=== PATIENT | male | born 1960 | race Caucasian/White ===

== ENCOUNTER → 2016-04-25 | Outpatient (CLI) | payer MEDICARE ==
[~2016-04-25] VITALS: Ht 172.7 cm; Wt 90.7 kg
[~2016-04-25] MED LIST: AMIO20TA PO; AMLO5TAB2 PO; ATEN50TA2 PO; AVEL1TAB PO; AZIT500T2 PO; CARV25TA PO; CYCL10TA PO; FERR325T3 PO; GABA600T PO; HYDR12.55 PO; LANO250T12 PO; LIDOCAINE 2% INJ 100 MG/5 ML SDV (FOR ANES.) As Ordered ONE; NICO21DI5 TD; NORT50CA PO; NS 1,000 ML IV SCH; PRIL20TA2 PO; PRIN5TAB PO; PROPOFOL 200 MG/20 ML VIAL As Ordered ONE; PROTPAK PO; XARE10TA PO; XARE20TA PO
--- NOTE | 2016-04-25 12:22 | ROOR ---
Patient Name: Edi Berg Procedure Date: 04/25/2016 11:54 AM Date of : 1960 Age: 56 Room: M OPP Gender: Male Note Status: Finalized Procedure: Colonoscopy Indications: High risk colon cancer surveillance: Personal history of colonic polyps, High risk colon cancer surveillance: Personal history of adenoma (10 mm or greater in size), High risk colon cancer surveillance: Personal history of adenoma with high grade dysplasia, Last colonoscopy: February 2015 Providers: Nathanael TROY MD Referring MD: JASON Li Requesting Provider: Medicines: Monitored Anesthesia Care Complications: No immediate complications. Procedure: Pre-Anesthesia Assessment: - The heart rate, respiratory rate, oxygen saturations, blood pressure, adequacy of pulmonary ventilation, and response to care were monitored throughout the procedure. The Colonoscope was introduced through the anus and advanced to the cecum, identified by appendiceal orifice and ileocecal valve. The colonoscopy was performed without difficulty. The patient tolerated the procedure well. The quality of the bowel preparation was good. Findings: The perianal and digital rectal examinations were normal. (Exam: Complete, Prep: Good or Excellent.) Two sessile polyps were found in the sigmoid colon. The polyps were small in size. These polyps were removed with a cold snare. Resection and retrieval were complete. The exam was otherwise without abnormality on direct and retroflexion views. Impression: - (Exam: Complete, Prep: Good or Excellent.) - Two small polyps in the sigmoid colon, removed with a cold snare. Resected and retrieved. - The examination was otherwise normal on direct and retroflexion views. Recommendation: - Repeat colonoscopy in 3 years for surveillance. Nathanael Troy MD Nathanael TROY MD 04/25/2016 12:21:28 PM This report has been signed electronically. Number of Addenda: 0 Note Initiated On: 04/25/2016 11:54 AM Estimated Blood Loss: Estimated blood loss: none.
[2016-04-25 12:45] VITALS: BP 187/122
== END ==
LOC: M OPP 10:33
PROVIDERS: ATTEND Internal Medicine Gastroenterology
DX: Z09 Encounter for follow-up examination after completed treatment for conditions other than malignant neoplasm (principal); Z86.010 Personal history of colon polyps; D12.5 Benign neoplasm of sigmoid colon; I10 Essential (primary) hypertension; I48.91 Unspecified atrial fibrillation; Z72.0 Tobacco use; Z86.69 Personal history of other diseases of the nervous system and sense organs; Z79.899 Other long term (current) drug therapy; Z79.02 Long term (current) use of antithrombotics/antiplatelets; Z88.8 Allergy status to other drugs, medicaments and biological substances

== ENCOUNTER 2017-11-19 06:08 | Day surgery (SDC) | payer MEDICARE ==
[~2017-11-19 06:08] MED LIST changes: -AMIO20TA PO; -AMLO5TAB2 PO; -ATEN50TA2 PO; -AVEL1TAB PO; -AZIT500T2 PO; -CARV25TA PO; -CYCL10TA PO; -FERR325T3 PO; -GABA600T PO; -HYDR12.55 PO; -LANO250T12 PO; -LIDOCAINE 2% INJ 100 MG/5 ML SDV (FOR ANES.) As Ordered ONE; +LR 1,000 ML IV; -NICO21DI5 TD; -NORT50CA PO; -NS 1,000 ML IV SCH; -PRIL20TA2 PO; -PRIN5TAB PO; -PROPOFOL 200 MG/20 ML VIAL As Ordered ONE; -PROTPAK PO; -XARE10TA PO; -XARE20TA PO
[2017-11-19] MEDS ORDERED: PROPOFOL 200 MG/20 ML VIAL As Ordered (09:01)
[2017-11-19] MEDS ORDERED: LIDOCAINE 2% INJ 100 MG/5 ML SDV (FOR ANES.) As Ordered (09:01)
== END 2017-11-19 08:38 | disposition home or self-care (01) ==
LOC: M SDC 06:08
DX: I48.91 Unspecified atrial fibrillation (principal); I10 Essential (primary) hypertension; E78.5 Hyperlipidemia, unspecified; Z79.899 Other long term (current) drug therapy; Z79.02 Long term (current) use of antithrombotics/antiplatelets; F17.210 Nicotine dependence, cigarettes, uncomplicated; F12.10 Cannabis abuse, uncomplicated
CPT/HCPCS: 92960

== ENCOUNTER 2018-07-21 10:11 | Inpatient (IN) | payer MEDICARE ==
[~2018-07-21] VITALS: Ht 172.7 cm; Wt 89.5 kg
[2018-07-21] MEDS: CHLORTHALIDONE 12.5MG PER 1/2 TABLET PO SCH (09:00)
[~2018-07-21 10:11] MED LIST changes: +AMIO200T PO; +AMIO200T22 PO; +AMLO5TAB6 PO; +ATEN50TA2 PO; +AVEL1TAB3 PO; +AZIT500T2 PO; +CARV25TA PO; +CIAL5TAB PO; +COLA100C5 PO; +CYCL10TA PO; +FERR325T3 PO; +GABA600T4 PO; +HYDR12.55 PO; +HYDR12CA PO; +LANO250T15 PO; -LR 1,000 ML IV; +NICO21DI6 TD; +NORT50CA PO; +PRIL20TA2 PO; +PRIN5TAB PO; +PROTPAK PO; +XARE10TA PO; +XARE20TA PO
[2018-07-21] MEDS ORDERED: LOSA25TA14 PO (10:27)
[2018-07-21] MEDS ORDERED: GABA-845 PO (10:27)
--- NOTE | 2018-07-21 11:16 | REP ---
Portable chest, 10:52 a.m., single frontal view: Comparison is 08/02/2013. The lung melendez are clear. The cardiac size is normal. The jett, mediastinum, and skeletal structures are unremarkable. There is a loop recorder projected over the left hemithorax as an interval change. Impression: Negative portable chest. No interval change except for the loop recorder. Electronically Signed by Carter Espinosa MD 07/21/2018 11:07 A
--- NOTE | 2018-07-21 11:22 | REP ---
CT Head without contrast HISTORY: Infarction COMPARISON: None Areas of decreased attenuation are present in the periventricular white matter. This represents small-vessel ischemic disease. There is no intraparenchymal hemorrhage, acute infarct, mass or midline shift. The ventricular system and cortical sulci are dilated consistent with mild volume loss. There is no extra cerebral collection. There is no fracture. The visualized sinuses are clear. IMPRESSION: 1. Small vessel ischemic disease. 2. Mild volume loss. Electronically Signed by Herb Davalos MD 07/21/2018 11:13 A
[2018-07-21 11:26] LABS: BASO # 0.1 10^3/uL (0.0-0.2); BASO % 0.9 % (0.0-1.0); EOS # 0.1 10^3/uL (0.0-0.50); EOS % 1.3 % (0.0-3.0); HEMATOCRIT 49.5 % (42.0-52.0); HEMOGLOBIN 17.1 g/dl (13.5-17.5); LYMPH # 2.4 10^3/uL (1.5-4.5); LYMPH % 30.6 % (24.0-44.0); MEAN CORPUSCULAR HEMOGLOBIN 33.9 pg (27.0-33.0); MEAN CORPUSCULAR HGB CONC 34.5 g/dl (32.0-36.5); MONO # 0.9 10^3/uL (0.0-0.8); MONO % 10.7 % (0.0-5.0); NEUTROPHILS # 4.5 10^3/uL (1.8-7.7); PLATELET COUNT, AUTOMATED 247 10^3/uL (150-450); RED BLOOD COUNT 5.05 10^6/uL (4.30-6.10)
[2018-07-21 11:38] LABS: INR 2.09; PROTHROMBIN TIME 23.9 SECONDS (12.1-14.4)
[2018-07-21 11:39] LABS: PARTIAL THROMBOPLASTIN TIME 54.3 SECONDS (25.4-37.6)
[2018-07-21] MEDS ORDERED: LABETALOL HCL 100 MG/20 ML VIAL IV STA (11:47)
[2018-07-21 11:54] LABS: BLOOD UREA NITROGEN 19 MG/DL (7-18); CARBON DIOXIDE LEVEL 28 MEQ/L (21-32); CHLORIDE LEVEL 104 MEQ/L (98-107); CK-MB VALUE MASS < 1.0 NG/ML (<3.6); CPK CREATINE PHOSPHOKINASE 61 U/L (39-308); CREATININE FOR GFR 1.08 MG/DL (0.70-1.30); GLOMERULAR FILTRATION RATE > 60.0 (>56); GLUCOSE, FASTING 94 MG/DL (70-100); MB/CK RELATIVE INDEX 1.64 (< OR =4); POTASSIUM SERUM 4.6 MEQ/L (3.5-5.1); SODIUM LEVEL 138 MEQ/L (136-145); TROPONIN I < 0.02 NG/ML (< 0.10)
[2018-07-21] MEDS: **hydrALAZINE HCL** 25 MG TAB PO SCH ×5 (12:00→23:37)
[2018-07-21] MEDS ORDERED: GABA800T4 PO ×2 (12:25→12:31)
[2018-07-21] MEDS: amLODIPine 10 MG TAB PO ONE ×2 (12:30→17:54)
[2018-07-21] MEDS ORDERED: XARE20TA PO (12:31)
[2018-07-21] MEDS ORDERED: OMEP40CA2 PO (12:31)
[2018-07-21] MEDS ORDERED: TYLETAB14 PO (12:42)
[2018-07-21] MEDS ORDERED: CYCLOBENZAPRINE 10 MG TAB PO PRN (13:45)
--- NOTE | 2018-07-21 15:34 | REP ---
MRA BRAIN WITHOUT CONTRAST: HISTORY: Infarction. 3D [id number] MR angiography was performed at the level of the [place]. There is no aneurysm, arteriovenous malformation, or atherosclerotic lesion. Major intracranial vessels are patent. The vertebral arteries are equal in size. IMPRESSION: Normal MRA brain. Electronically Signed by Herb Davalos MD 07/21/2018 03:43 P
[2018-07-21 15:35] VITALS: BP 182/112
--- NOTE | 2018-07-21 15:41 | REP ---
MR BRAIN WITHOUT CONTRAST: HISTORY: Infarction. COMPARISON: CT 07/21/2018. Areas of increased signal intensity on T2-weighted images are present in the periventricular and subcortical white matter. This represents small vessel ischemic disease. There is no intraparenchymal hemorrhage, infarct, mass, or midline shift. The ventricular system and cortical sulci are dilated consistent with mild volume loss. There is on extracerebral collection. The sinuses are clear. IMPRESSION: 1. Small vessel ischemic disease. 2. Mild volume loss. Electronically Signed by Herb Davalos MD 07/21/2018 03:43 P
[2018-07-21] MEDS ORDERED: SLF 3 ML SYR IV PRN (15:45)
[2018-07-21] MEDS ORDERED: LOSARTAN 25 MG TAB PO ONE (16:00)
--- NOTE | 2018-07-21 16:05 | HPEPDOC ---
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 Pt was seen at [facility] neurology on Friday by Susana Pressley when he was c/o b/l feet numbness. "I usually jump up when she strokes my feet b ecause of really bad pain, but I barely felt her examine my feet. It was very numb." He also c/o upper back pain by the shoulder blades with b/l hand numbness, some "shakiness," and difficulty handling his utensils when he eats since Friday. No changes in gait, or falls at home. no sob, chest heaviness, or WADSW[place]TH. no fever, chills, URI, diarrhea, or sick contacts. In the ER, motor function b/l UE and LE wnl 5/5, gait was intact. MRI brain and cervical spine pending result. REVIEW OF SYSTEMS: 12 point systems review negative aside from positive findings on HPI PAST MEDICAL HISTORY: 1. Paroxysmal atrial fibrillation. 2. Hypertension. 3. Acid reflux. 4. Guillain-Elizabeth syndrome. 5. Sigmoid colon, polyps, polypectomy with Adenomatous polyp/tubular adenoma, hyperplastic polyp 6. GI bleed PAST SURGICAL HISTORY: 1. Status post cholecystectomy. 2. Tracheostomy. 3. Colonoscopy. 4. Polypectomy. SOCIAL HISTORY: Smokes cigarettes, 1 pack a day for many years, which is o ngoing, but denies alcohol abuse, denies illicit drug abuse. He is a full code. FAMILY HISTORY: Mother has history of breast cancer and also heart problems. ALLERGIES: LISINOPRIL. MEDICATIONS: pls see below PHYSICAL EXAMINATION: VITALS:pls see below GENERAL: Awake, alert and oriented times three. Face is symmetric. no facial drooping. Speech is fluent. He is not in acute distress. anicteric no jaundice HEENT: Atraumatic. Pupils equal, round, and reactive to light and accomodation. Ears, nose and throat normal. LUNGS: Clear. No crackles. No wheezing. HEART: S1, S2, regular. No murmur. ABDOMEN: Soft, bowel sounds positive, nontender. LOWER EXTREMITIES: He does not have edema in his bilateral lower extremities. NEUROLOGIC: decreased sensation in b/l arms, hands. motor 5/5/ x 4 extremities. no dysmetria on finger to nose testing. SKIN: No rash. PSYCHOLOGICAL: No acute psychosis. 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 Pt was seen at [facility] neurology on Friday by Susana Pressley when he was c/o b/l feet numbness. "I usually jump up when she strokes my feet because of really bad pain, but I barely felt her examine my feet. It was very numb." He also c/o upper back pain by the shoulder blades with b/l hand numbness, some "shakiness," and difficulty handling his utensils when he eats since Friday. No changes in gait, or falls at home. no sob, chest heaviness, or WADSW[place]TH. no fever, chills, URI, diarrhea, or sick contacts. In the ER, motor function b/l UE and LE wnl 5/5, gait was intact. MRI brain and cervical spine pending result. Pt was found to have sbp >200, dbp>100mmHg without c/o changes in vision or headache. Bilateral Hand numbness in the setting of chronic peripheral neuropathy from known history of guillaine barre in 1997 s/p trach. MRI brain and cervical spine are pending official report. No images available for review per Dr. Davalos. continue with PCU telemetry monitoring, and neurochecks. if negative MRI brain and cspine, lumbar puncture in am to rule out recurrent guillaine barre. Neurology consulted, Dr. clemons. Chronic bilateral feet pain now with numbness/ chronic peripheral neuropathy from known history of guillaine barre in 1997 s/p trach.MRI brain and cervical spine are pending official report. No images available for review per Dr. Davalos. continue with PCU telemetry monitoring, and neurochecks. if negative MRI brain and cspine, lumbar puncture in am to rule out recurrent guillaine barre. Neurology consulted, Dr. clemons. history of guillaine barre in 1997 s/p trach.MRI brain and cervical spine are pending official report. continue with PCU telemetry monitoring, and neurochecks. if negative MRI brain and cspine, lumbar puncture in am to rule out recurrent guillaine barre. Neurology consulted, Dr. clemons. Hypertensive urgency patient and patient's both say that he is compliant with his meds, and his lower back pain is chronic. pt is resumed on his home meds: losartan, coreg. he did receive labetalol in ER. CT head negative for acute ich or cva. chrnonic small vessel ischemic disease. on hydralazine q4hrs with holding parameters. Atrial fibrillation on chronic anticoagulation awaiting MRI brain report.currently rate controlled. on telemetry and resumed on home dose of amiodarone and coreg. pt has had multiple dc ardioversionsx3, and ablation per . 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 Acid reflux. continue on PPI History of GI bleed - Sigmoid colon, polyps, polypectomy with Adenomatous polyp/tubular adenoma, hyperplastic polyp -no acute issues Diet: CYNDY diet DVT prophylaxis: on chronic ac. Vital Signs Vital Signs Date Time Temp Pulse Resp B/P (MAP) Pulse Ox O2 Delivery O2 Flow Rate FiO2 07/21/18 13:15 69 154/107 (123) 94 07/21/18 11:07 Room Air 07/21/18 10:12 97.9 16 Laboratory Data Labs 24H Laboratory Tests 2 07/21/18 11:01: Immature Granulocyte % (Auto) 0.5, White Blood Count 8.0, Red Blood Count 5.05, Hemoglobin 17.1, Hematocrit 49.5, Mean Corpuscular Volume 98.0H, Mean Corpuscula r Hemoglobin 33.9H, Mean Corpuscular Hemoglobin Concent 34.5, Red Cell Distribution Width 13.7, Platelet Count 247, Neutrophils (%) (Auto) 56.0, Lymphocytes (%) (Auto) 30.6, Monocytes (%) (Auto) 10.7H, Eosinophils (%) (Auto) 1.3, Basophils (%) (Auto) 0.9, Neutrophils # (Auto) 4.5, Lymphocytes # (Auto) 2.4, Monocytes # (Auto) 0.9H, Eosinophils # (Auto) 0.1, Basophils # (Auto) 0.1, Nucleated Red Blood Cells % (auto) 0.0, Prothrombin Time 23.9H, Prothromb Time International Ratio 2.09, Activated Partial Thromboplast Time 54.3H, Anion Gap 6L, Glomerular Filtration Rate > 60.0, Blood Urea Nitrogen 19H, Creatinine 1.08, Sodium Level 138, Potassium Level 4.6, Chloride Level 104, Carbon Dioxide Level 28, Calcium Level 9.0, Total Creatine Kinase 61, Creatine Kinase MB < 1.0, Creatine Kinase MB Relative Index 1.64, Troponin I < 0.02 07/21/18 11:06: Bedside Glucose (Misc Panel) 108H CBC/BMP Laboratory Tests 07/21/18 11:01 Red Blood Count 5.05, Mean Corpuscular Volume 98.0 H, Mean Corpuscular Hemoglobin 33.9 H, Mean Corpuscular Hemoglobin Concent 34.5, Red Cell Distribution Width 13.7, Neutrophils (%) (Auto) 56.0, Lymphocytes (%) (Auto) 30.6, Monocytes (%) (Auto) 10.7 H, Eosinophils (%) (Auto) 1.3, Basophils (%) (Auto) 0.9, Neutrophils # (Auto) 4.5, Lymphocytes # (Auto) 2.4, Monocytes # (Auto) 0.9 H, Eosinophils # (Auto) 0.1, Basophils # (Auto) 0.1, Calcium Level 9.0, Total Creatine Kinase 61 Home Medications Scheduled Amiodarone HCl (Amiodarone HCl) 200 Mg Tab, 200 MG PO QHS Carvedilol (Carvedilol) 25 Mg Tab, 25 MG PO BID Gabapentin (Gabapentin) 800 Mg Tablet, 800 MG PO DAILY Gabapentin (Gabapentin) 800 Mg Tablet, 1,600 MG PO QHS Hydrochlorothiazide (Hydrochlorothiazide) 12.5 Mg Tab, 12.5 MG PO DAILY Losartan Potassium (Losartan Potassium) 25 Mg Tablet, 25 MG PO DAILY Omeprazole (Omeprazole) 40 Mg Capsule.dr, 40 MG PO DAILY Rivaroxaban (Xarelto) 20 Mg Tablet, 20 MG PO QHS Scheduled PRN Acetaminophen with Codeine (Tylenol with Codeine #3 Tablet) 1 Each Tablet, 1 TAB PO QHS PRN for PAIN Cyclobenzaprine HCl (Cyclobenzaprine HCl) 10 Mg Tab, 10 MG PO TID PRN for SPASMS Allergies Coded Allergies: lisinopril (Verified Allergy, Unknown, 07/21/18) GLORIA IGLESIAS MD Jul 21, 2018 14:11
[2018-07-21] MEDS ORDERED: RIVAROXABAN 20 MG TAB (XARELTO) PO SCH (18:00)
[2018-07-21] MEDS: NICOTINE 14 MG/24 HR TRANSDERMAL TD SCH (18:30)
--- NOTE | 2018-07-21 18:58 | REP ---
MR CERVICAL SPINE WITHOUT CONTRAST: HISTORY: Bilateral hand numbness. A disc bulge is present at the C3-4 level. There is mild effacement of the thecal sac without spinal cord compression. Bilateral uncinate process hypertrophy is present. This produces moderate and mild narrowing of the right and left C3 neural foramina respectively. A disc bulge with associated osteophyte formation is present at the C4-5 level. There is mild effacement of the thecal sac without spinal cord compression. Bilateral uncinate process hypertrophy is present. This produces moderate and mild narrowing of the right and left C4 neural foramina respectively. A disc bulge with associated osteophyte formation is present at the C5-6 level. There is moderate effacement of the thecal sac without spinal cord compression. Bilateral uncinate process hypertrophy is present. This produces moderate and mild narrowing of the right and left C5 neural foramina respectively. A disc bulge is present at the C6-7 level. There is mild effacement of the thecal sac without spinal cord compression. Bilateral uncinate process hypertrophy is present. This produces moderate and minimal narrowing of the right and left C6 neural foramina respectively. There is no other disc bulge or herniation. The remaining neural foramina are patent. The spinal cord is normal in signal intensity. The C4-5 through C6-7 intervertebral discs are decreased in height consistent with disc degeneration. Increased signal intensity on T2-weighted images is present in the endplates of the C4 and 5 vertebral bodies. This represents degenerative change. IMPRESSION: There is cervical spondylosis at the C3-4 through C6-7 levels without spinal cord compression. Electronically Signed by Herb Davalos MD 07/21/2018 07:00 P
[2018-07-21 19:32] LABS: TOTAL PROTEIN 7.6 GM/DL (6.4-8.2)
[2018-07-21 19:41] LABS: HEMOGLOBIN A1c 5.3 %
[2018-07-21 19:42] LABS: VITAMIN B12 LEVEL 555 PG/ML (247-911)
[2018-07-21 20:00] VITALS: BP 158/110
[2018-07-21] MEDS: GABAPENTIN 400 MG CAP PO SCH (21:16)
[2018-07-21] MEDS: SLF 3 ML SYR IV SCH (21:17)
[2018-07-21] MEDS: AMIODARONE 200 MG TAB (PACERONE) PO SCH (21:17)
[2018-07-21] MEDS: CARVedilol 12.5 MG TAB PO SCH (21:17)
--- NOTE | 2018-07-21 21:37 | ECGEPIP ---
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
[2018-07-22] VITALS (15 sets, daily range): BP systolic 97–168; BP diastolic 60–120
[2018-07-22] MEDS: ACETAMINOPHEN TAB 650MG DOSE (2X325MG) PO PRN ×2 (00:10→23:27)
[2018-07-22] MEDS: SLF 3 ML SYR IV SCH ×3 (02:59→08:41)
[2018-07-22] MEDS: **hydrALAZINE HCL** 25 MG TAB PO SCH (04:06)
--- NOTE | 2018-07-22 07:49 | CR ---
DATE OF CONSULTATION: 07/21/2018 REFERRING PHYSICIAN: Dr. Esther Latif REASON FOR CONSULTATION: Numbness, tingling and pain in hands and feet. HISTORY OF PRESENT ILLNESS: The patient is 55-year-old man with history of paroxysmal atrial fibrillation on Xarelto, acid reflux, Guillain [place] syndrome in 1997, requiring tracheostomy and had chronic pain in his bilateral feet. The patient states that in wintertime he had felt off and on numbness, tingling in his hands. He had EMG nerve conduction study of his legs in 2013 which showed neuropathy of his old Guillian [place] syndrome in 1997. He states that he had seen Susana Pressley at our office last week. He developed pain between his shoulder blade which was 4/10 in intensity on Friday. Friday without any preceding injuries or illness. He developed more tingling numbness sensation in his hands and feet. Tingling sensation in his hands and feet reach up to his upper calves and forearm. He states that his tingling sensation and pain in his hands are 6/10 in intensity. He denies any imbalance or weakness. The patient has been on amiodarone for four years. He had two cardioversions which were successful but he went back into atrial fibrillation within a month after these cardioversions. After cardioversion he had stopped taking amiodarone for 4 months, but restarted it in the beginning of 2018. He has off-and-on back pain. He denies any neck pain, headaches, dysphagia, dysarthria, diplopia, falls or loss of consciousness. The patient states that he does not use a cane or walker at his baseline. PAST MEDICAL HISTORY: Paroxysmal atrial fibrillation, hypertension, acid reflux, Guillain [place] Syndrome in 1997, colonic polyps, history of GI bleed, history of tracheostomy colonoscopy, polypectomy cholecystectomy. SOCIAL HISTORY: Smokes one pack per day. He denies alcohol or illicit drugs. FAMILY HISTORY: Mother history of breast cancer and heart problems. ALLERGIES: Lisinopril. REVIEW OF SYSTEMS: All systems were reviewed and found to be noncontributory except as mentioned history present illness. PHYSICAL EXAMINATION: Amiodarone 200 mg by mouth daily, carvedilol 25 mg by mouth twice a day, gabapentin 800 plus 1600 mg daily, hydrochlorothiazide 12.5 mg by mouth in the morning but was changed to chlorthalidone 12.5 mg by mouth daily in the hospital, losartan 25 mg by mouth daily, Prilosec 40 mg by mouth daily, Xarelto 20 mg by mouth daily, hydralazine 25 mg by mouth every 4 hours. PHYSICAL EXAMINATION: Blood pressure at arrival was 216/122 which decreased to 132/93 but went back up to 188/110 throughout the day. Temperature 97.6. Respiratory 16, pulse 69, 94% saturation on room air. Heart: Regular rate and rhythm. Lungs: Clear to auscultation. Abdomen: Soft, nontender, nondistended. No pedal edema. No musculoskeletal abnormalities. No rash. No signs of meningeal irritation. No tremor or dysmetria. The patient is awake, alert, oriented to place, person and time. Normal speech comprehension and repetition. Extraocular muscles are intact. No facial weakness. Tongue and uvula are midline. 5/5 strength in all extremities. Deep tendon flexes are 1+ in arms and absent in legs. He has decreased vibration, joint position cold and pinprick sensation in his hands and feet in gloves and stockings distribution. He is able to walk without assistance. Romberg testing is negative. DIAGNOSTIC STUDIES: His MRI and MRA of brain only showed mild small-vessel ischemic disease of brain. MRI cervical spine showed mild multilevel degenerative disk disease without spinal stenosis on my review. Official report is pending. CBC and metabolic profile were within normal limits. ASSESSMENT: 1. Suspected peripheral neuropathy with worsening. 2. History of Guillain [place] Syndrome in 1997. 3. Amiodarone can cause and worsen neuropathy after prolonged use. 4. Development of superimposed bilateral carpal tunnel syndrome is another possibility. 5. Recurrence of Guillain [place] is rare although possible. 6. Rule out other reversible causes of peripheral neuropathy by blood tests. PLAN: 1. Continue gabapentin 800+ 1600 mg by mouth daily. 2. Check vitamin B12, vitamin B1, serum copper, capital SPEP, Lyme and antibody, hemoglobin A1c etc. 3. Spinal tap can be considered but it will be complicated by the fact that the patient is on Xarelto. He will need to be switched to intravenous Heparin. He will have to be off Xarelto for few days before radiology will consider going spinal tap. 4. He should discuss with his respiratory physician if it is at all possible to change his amiodarone to another NT arrhythmic drug. 5. Continue Xarelto 20 mg by mouth daily until any decision is made to proceed with spinal tap. 6. Neuropathy of the arms and legs as outpatient. His EMG nerve conduction study in 2013 showed moderately severe sensory and motor peripheral neuropathy, likely due to residual effects of his Guillain [place] syndrome in 1997. 7. We will observe him over the next 24-48 hours for development of any weakness or imbalance. Monitor his forced vital capacity every 6 hours. Currently does not have any shortness of breath. 8. Follow with our office in 2-4 weeks after hospital discharge. Consider Cymbalta 30 - 60 mg by mouth daily for his painful small fiber peripheral neuropathy and neuropathic pain.
[2018-07-22] MEDS: CARVedilol 12.5 MG TAB PO SCH ×2 (08:36→20:23)
[2018-07-22] MEDS: GABAPENTIN 400 MG CAP PO SCH ×2 (08:36→20:22)
[2018-07-22] MEDS: OMEPRAZOLE 20 MG CAP PO SCH (08:41)
[2018-07-22] MEDS ORDERED: hydroCHLOROthiazide 12.5 MG CAPSULE PO SCH (09:00)
[2018-07-22] MEDS ORDERED: LOSARTAN 25 MG TAB PO SCH (09:00)
[2018-07-22] MEDS ORDERED: **hydrALAZINE HCL** 25 MG TAB PO ONE (09:00)
[2018-07-22] MEDS: CHLORTHALIDONE 12.5MG PER 1/2 TABLET PO SCH (09:25)
--- NOTE | 2018-07-22 10:34 | REP ---
Right shoulder three views : There is no fracture or dislocation. Mineralization and joint spaces are normal. There are no calcifications or foreign bodies. Impression: Negative right shoulder . Electronically Signed by Carter Espinosa MD 07/22/2018 10:26 A
[2018-07-22 11:15] LABS: INR 1.12; PROTHROMBIN TIME 14.5 SECONDS (12.1-14.4)
[2018-07-22] MEDS ORDERED: cloNIDine 0.2 MG TAB PO ONE (11:45)
[2018-07-22 13:40] LABS: CSF TUBE# GLU TUBE 2; CSF TUBE# TP TUBE 2; GLUCOSE CSF 64 MG/DL (40-75); TOTAL PROTEIN,CSF 175 MG/DL (15-45)
[2018-07-22] MEDS: **hydrALAZINE** 10 MG TAB PO SCH ×3 (13:46→20:22)
[2018-07-22 13:50] LABS: APPEARANCE, CSF CLEAR (CLEAR); COLOR, CSF COLORLESS (COLORLESS); CSF TUBE# CELL CNT TUBE 1
--- NOTE | 2018-07-22 16:00 | IPNPDOC ---
Date Seen The patient was seen on 07/22/18. Progress Note SUBJECTIVE: Pt has no new neurologic c/o. Still continues to have numbness and decreased sensation in b/l hands, and per RN no difficulty eating his breakfast this morning. no sob. MRI brain and Cervical spine unremarkable. Neurology consulted and recommended heavy metal screen, lyme, and oupt fu for ncs for carpal tunnel. PHYSICAL EXAMINATION: VITALS:pls see below GENERAL: Awake, alert and oriented times three. Face is symmetric. no facial drooping. Speech is fluent. He is not in acute distress. anicteric no jaundice HEENT: Atraumatic. Pupils equal, round, and reactive to light and accomodation. Ears, nose and throat normal. LUNGS: Clear. No crackles. No wheezing. HEART: S1, S2, regular. No murmur. ABDOMEN: Soft, bowel sounds positive, nontender. LOWER EXTREMITIES: He does not have edema in his bilateral lower extremities. NEUROLOGIC: decreased sensation in b/l arms, hands. motor 5/5/ x 4 extremities. no dysmetria on finger to nose testing. SKIN: No rash. PSYCHOLOGICAL: No acute psychosis. 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 Pt was seen at [facility] neurology on Friday by Susana Pressley when he was c/o b/l feet numbness. "I usually jump up when she strokes my feet because of really bad pain, but I barely felt her examine my feet. It was very numb." He also c/o upper back pain by the shoulder blades with b/l hand numbness, some "shakiness," and difficulty handling his utensils when he eats since Friday. No changes in gait, or falls at home. no sob, chest heaviness, or WADSWORTH. no fever, chills, URI, diarrhea, or sick contacts. In the ER, motor function b/l UE and LE wnl 5/5, gait was intact. MRI brain and cervical spine pending result. Pt was found to have sbp >200, dbp>100mmHg without c/o changes in vision or headache. 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 r/o carpal tunnel with outpt emg. referral for release. MRI brain and cervical spine are unremearkable. PCU telemetry monitoring, and neurochecks. if negative MRI brain and cspine, lumbar puncture in am to rule out recurrent guillaine barre. Neurology consulted, Dr. clemons. 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 PCU telemetry monitoring, and neurochecks. if negative MRI brain and cspine, lumbar puncture in am to rule out recurrent guillaine barre. Neurology consulted, Dr. clemons. 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 lumbar puncture to rule out recurrent guillaine barre. Neurology consulted, Dr. clemons. Hypertensive urgency, resolved patient and patient's both say that he is compliant with his meds, and his lower back pain is chronic. pt is resumed on his home meds: losartan, coreg. he did receive labetalol in ER. CT head negative for acute ich or cva. chrnonic small vessel ischemic disease. on hydralazine q4hrs with holding parameters. Atrial fibrillation on chronic anticoagulation awaiting MRI brain report.currently rate controlled. on telemetry and resumed on home dose of amiodarone and coreg. pt has had multiple dc ardioversionsx3, and ablation per . 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 Neurology recommends changing amiodarone dueto neuropathy Acid reflux. continue on PPI History of GI bleed - Sigmoid colon, polyps, polypectomy with Adenomatous polyp/tubular adenoma, hyperplastic polyp -no acute issues Diet: CYNDY diet DVT prophylaxis: on chronic ac. disposition: await physical therapy clearance. VS, I&O, 24H, Fishbone Vital Signs/I&O Vital Signs Date Time Temp Pulse Resp B/P (MAP) Pulse Ox O2 Delivery O2 Flow Rate FiO2 07/22/18 13:46 132/90 07/22/18 13:30 98.0 70 20 98 07/21/18 11:07 Room Air I&O- Last 24 Hours up to 6 AM 07/22/18 06:00 Intake Total 480 ml Output Total 0 ml Balance 480 ml Laboratory Data 24H LABS Laboratory Tests 2 07/21/18 18:31: Estimated Mean Plasma Glucose 105, Hemoglobin A1c 5.3, Total Protein (PEP) 7.6, Vitamin B12 Level 555 07/22/18 10:48: Prothrombin Time 14.5H, Prothromb Time International Ratio 1.12 07/22/18 12:55: CSF Appearance CLEAR, CSF Color COLORLESS, CSF WBC (Auto) 1, CSF RBC (Auto) < 2, CSF Glucose (Tube 1) TUBE 2, CSF Total Protein (Tube 1) TUBE 2, CSF Cell Count Tube # TUBE 1, CSF Polynuclear WBCs (%) , CSF Glucose 64, CSF Total Protein 175H Microbiology Microbiology 07/22/18 Gram Stain - Final, Resulted 07/22/18 CSF Culture, Resulted Pending 07/22/18 - Final, Complete GLORIA IGLESIAS MD Jul 22, 2018 16:00
[2018-07-22] MEDS ORDERED: NICO14PA TD ×2 (16:05→16:12)
[2018-07-22] MEDS ORDERED: HYDR10TAB PO ×2 (16:05→16:12)
[2018-07-22] MEDS ORDERED: IMMUNE GLOBULIN IV SCH (17:00)
[2018-07-22] MEDS ORDERED: DILUENT IV SCH (17:00)
[2018-07-22 17:23] LABS: HEMATOCRIT 50.4 % (42.0-52.0); HEMOGLOBIN 17.1 g/dl (13.5-17.5); MEAN CORPUSCULAR HEMOGLOBIN 33.9 pg (27.0-33.0); MEAN CORPUSCULAR HGB CONC 33.9 g/dl (32.0-36.5); MEAN CORPUSCULAR VOLUME 99.8 fl (80.0-96.0); PLATELET COUNT, AUTOMATED 247 10^3/uL (150-450); RED BLOOD COUNT 5.05 10^6/uL (4.30-6.10); WHITE BLOOD COUNT 8.1 10^3/uL (4.0-10.0)
[2018-07-22 17:38] LABS: BLOOD UREA NITROGEN 22 MG/DL (7-18); CARBON DIOXIDE LEVEL 30 MEQ/L (21-32); CHLORIDE LEVEL 103 MEQ/L (98-107); CREATININE FOR GFR 1.23 MG/DL (0.70-1.30); GLOMERULAR FILTRATION RATE > 60.0 (>56); GLUCOSE, FASTING 96 MG/DL (70-100); POTASSIUM SERUM 4.3 MEQ/L (3.5-5.1); SODIUM LEVEL 138 MEQ/L (136-145)
[2018-07-22] MEDS: NICOTINE 14 MG/24 HR TRANSDERMAL TD SCH (17:46)
[2018-07-22] MEDS: RIVAROXABAN 20 MG TAB (XARELTO) PO SCH (17:46)
--- NOTE | 2018-07-22 18:01 | REP ---
Fluoroscopy guided lumbar puncture. The patient has a history of bilateral lower extremity numbness. The procedure was performed by JACKIE Dennison, under the personal supervision of Dr. Mena. The risks and benefits of the procedure were explained to the patient and informed consent was obtained both verbally and written. Directly prior to the start of the procedure, a formal time a was completed. The L2 - 3 interspace was localized using fluoroscopic guidance. The skin was prepped and draped in a sterile fashion. 1% lidocaine was used as a local anesthetic. Using fluoroscopic guidance a 22-gauge spinal needle was inserted and advanced into the thecal sac. 4.5 ml of spinal fluid was withdrawn and sent to the lab. The patient tolerated the procedure well and there were no immediate complications. 0.3 minutes of fluoro time was utilized for this procedure. Reviewed by JACKIE Bennett 07/22/2018 01:19 P Electronically Signed by Pedro Pablo Mena MD 07/22/2018 05:52 P
[2018-07-22] MEDS ORDERED: IMMUNE GLOBULIN 10% 40 GM in APPROPRIATE DILUENT 1 EA IV SCH (20:00)
[2018-07-22] MEDS: LOSARTAN 25 MG TAB PO SCH (20:23)
[2018-07-22] MEDS: AMIODARONE 200 MG TAB (PACERONE) PO SCH (20:23)
[2018-07-23] VITALS (19 sets, daily range): BP systolic 94–182; BP diastolic 60–118
[2018-07-23] MEDS: SLF 3 ML SYR IV SCH ×3 (05:38→21:37)
[2018-07-23] MEDS: CHLORTHALIDONE 12.5MG PER 1/2 TABLET PO SCH (08:36)
[2018-07-23] MEDS: LOSARTAN 25 MG TAB PO SCH ×2 (08:36→20:42)
[2018-07-23] MEDS: CARVedilol 12.5 MG TAB PO SCH ×2 (08:36→20:42)
[2018-07-23] MEDS: GABAPENTIN 400 MG CAP PO SCH ×2 (08:37→20:41)
[2018-07-23] MEDS: **hydrALAZINE** 10 MG TAB PO SCH ×2 (08:37→13:00)
[2018-07-23] MEDS: OMEPRAZOLE 20 MG CAP PO SCH (08:37)
[2018-07-23 10:17] LABS: ALBUMIN 4.29 GM/DL (3.29-5.55); ALBUMIN % 56.4 % (55.8-66.1); ALPHA-1-GLOBULINS 0.38 GM/DL (0.17-0.41); ALPHA-2-GLOBULINS 0.92 GM/DL (0.42-0.99); ALPHA-2-GLOBULINS % 12.1 % (7.1-11.8); BETA-1-GLOBULINS % 6.5 % (4.7-7.2); BETA-2-GLOBULINS % 6.4 % (3.2-6.5); GAMMA GLOBULIN % 13.6 % (11.1-18.8)
[2018-07-23 10:18] LABS: BETA-1-GLOBULINS 0.49 GM/DL (0.28-0.60); BETA-2-GLOBULINS 0.49 GM/DL (0.19-0.55); GAMMA GLOBULINS 1.03 GM/DL (0.65-1.58)
[2018-07-23] MEDS ORDERED: DULoxetine 30 MG CAP (CYMBALTA) PO ONE (12:00)
--- NOTE | 2018-07-23 15:21 | IPNPDOC ---
Date Seen The patient was seen on 07/23/18. Progress Note SUBJECTIVE: Overnight, pt's forced vital capacity unchanged ranging from 3.6 to 3.8L.n Pt c/o severe headache during the initial IVIG infusion which resolved when the infusion was slowed. Pt has no new neurologic c/o. Still continues to have numbness and decreased sensation in b/l hands. no sob. MRI brain and Cervical spine unremarkable. Neurology consulted and recommended heavy metal screen, lyme, and oupt fu for ncs for carpal tunnel. BP improved but decreased 94/60 from 158/108. PHYSICAL EXAMINATION: VITALS:pls see below GENERAL: Awake, alert and oriented times three. Face is symmetric. no facial drooping. Speech is fluent. He is not in acute distress. anicteric no jaundice HEENT: Atraumatic. Pupils equal, round, and reactive to light and accomodation. Ears, nose and throat normal. LUNGS: Clear. No crackles. No wheezing. HEART: S1, S2, regular. No murmur. ABDOMEN: Soft, bowel sounds positive, nontender. LOWER EXTREMITIES: He does not have edema in his bilateral lower extremities. NEUROLOGIC: decreased sensation in b/l arms, hands. motor 5/5/ x 4 extremities. no dysmetria on finger to nose testing. SKIN: No rash. PSYCHOLOGICAL: No acute psychosis. 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 Pt was seen at [facility] neurology on Friday by Susana Pressley when he was c/o b/l feet numbness. "I usually jump up when she strokes my feet because of really bad pain, but I barely felt her examine my feet. It was very numb." He also c/o upper back pain by the shoulder blades with b/l hand numbness, some "shakiness," and difficulty handling his utensils when he eats since Friday. No changes in gait, or falls at home. no sob, chest heaviness, or WADSWORTH. no fever, chills, URI, diarrhea, or sick contacts. In the ER, motor function b/l UE and LE wnl 5/5, gait was intact. MRI brain and cervical spine pending result. Pt was found to have sbp >200, dbp>100mmHg without c/o changes in vision or headache. Bilateral Hand numbness r/o b/l carpal tunnel syndrome as outpt. 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 ORtho referral for release. MRI brain and cervical spine are unremearkable. PCU telemetry monitoring, and neurochecks. 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 Neurology consulted, Dr. lord who recommended IVIG x 5 days. Possible Recurrent Guillaine-[place] 5days IVIg with c/o headache after 1st hr of infusion on 07/22/18 which improved with slowing down the infusion. Dr. Lord consulted, Neurology. 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 PCU telemetry monitoring, and neurochecks. if negative MRI brain and cspine, lumbar puncture in am to rule out recurrent guillaine barre. Neurology consulted, Dr. lord. 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 lumbar puncture to rule out recurrent guillaine barre. Neurology consulted, Dr. lord. Hypertensive urgency, resolved patient and patient's both say that he is compliant with his meds, and his lower back pain is chronic. pt is resumed on his home meds: losartan, coreg. he did receive labetalol in ER. CT head negative for acute ich or cva. chrnonic small vessel ischemic disease. Due to hypotension 94/60 on 07/23/18, hydralazine has been discontinued. monitor renal function. Atrial fibrillation on chronic anticoagulation currently rate controlled. on telemetry and resumed on home dose of amiodarone and coreg. pt has had multiple dc ardioversionsx3, and ablation per . 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 Neurology recommends changing amiodarone dueto neuropathy Acid reflux. continue on PPI History of GI bleed - Sigmoid colon, polyps, polypectomy with Adenomatous polyp/tubular adenoma, hyperplastic polyp -no acute issues Diet: CYNDY diet DVT prophylaxis: on chronic ac. disposition: to complete 5days ivig. VS, I&O, 24H, Fishbone Vital Signs/I&O Vital Signs Date Time Temp Pulse Resp B/P (MAP) Pulse Ox O2 Delivery O2 Flow Rate FiO2 07/23/18 13:00 116/92 07/23/18 12:00 97.0 64 18 98 07/21/18 11:07 Room Air I&O- Last 24 Hours up to 6 AM 07/23/18 06:00 Intake Total 1480 ml Output Total 950 ml Balance 530 ml Laboratory Data 24H LABS Laboratory Tests 2 07/22/18 16:58: Nucleated Red Blood Cells % (auto) 0.0, Anion Gap 5L, Glomerular Filtration Rate > 60.0, Blood Urea Nitrogen 22H, Creatinine 1.23, Sodium Level 138, Potassium Level 4.3, Chloride Level 103, Carbon Dioxide Level 30, Calcium Level 9.0 CBC/BMP Laboratory Tests 07/22/18 16:58 Red Blood Count 5.05, Mean Corpuscular Volume 99.8 H, Mean Corpuscular Hemo globin 33.9 H, Mean Corpuscular Hemoglobin Concent 33.9, Red Cell Distribution Width 13.8, Calcium Level 9.0 Microbiology Microbiology 07/22/18 Gram Stain - Final, Resulted 07/22/18 CSF Culture, Resulted Pending 07/22/18 - Final, Complete GLORIA IGLESIAS MD Jul 23, 2018 15:15
[2018-07-23 15:41] LABS: HEMATOCRIT 51.5 % (42.0-52.0); MEAN CORPUSCULAR HEMOGLOBIN 33.9 pg (27.0-33.0); MEAN CORPUSCULAR VOLUME 102.6 fl (80.0-96.0); PLATELET COUNT, AUTOMATED 198 10^3/uL (150-450); RED BLOOD COUNT 5.02 10^6/uL (4.30-6.10); WHITE BLOOD COUNT 5.1 10^3/uL (4.0-10.0)
[2018-07-23 16:10] LABS: BLOOD UREA NITROGEN 22 MG/DL (7-18); CALCIUM LEVEL 8.8 MG/DL (8.5-10.1); CARBON DIOXIDE LEVEL 29 MEQ/L (21-32); CHLORIDE LEVEL 102 MEQ/L (98-107); CREATININE FOR GFR 1.21 MG/DL (0.70-1.30); GLOMERULAR FILTRATION RATE > 60.0 (>56); GLUCOSE, FASTING 82 MG/DL (70-100); POTASSIUM SERUM 4.3 MEQ/L (3.5-5.1); SODIUM LEVEL 135 MEQ/L (136-145)
[2018-07-23] MEDS: RIVAROXABAN 20 MG TAB (XARELTO) PO SCH (16:30)
[2018-07-23] MEDS: ACETAMINOPHEN TAB 650MG DOSE (2X325MG) PO PRN ×2 (16:30→22:52)
[2018-07-23] MEDS: NICOTINE 14 MG/24 HR TRANSDERMAL TD SCH (16:31)
[2018-07-23] MEDS: AMIODARONE 200 MG TAB (PACERONE) PO SCH (20:40)
[2018-07-23] MEDS ORDERED: hydrALAZINE INJ 20 MG/ML VIAL IV ONE (21:00)
[2018-07-23] MEDS ORDERED: CHLORTHALIDONE 25 MG TAB PO ONE (21:45)
[2018-07-23] MEDS: THIAMINE 100 MG TAB PO SCH (22:51)
[2018-07-23] MEDS: LORazepam 2 MG TAB PO PRN (22:51)
[2018-07-23] MEDS ORDERED: cloNIDine 0.1 MG TAB PO ONE ×2 (23:15)
[2018-07-23] MEDS: IMMUNE GLOBULIN 10% 40 GM in APPROPRIATE DILUENT 1 EA IV SCH (23:36)
[2018-07-24] VITALS (20 sets, daily range): BP systolic 100–180; BP diastolic 61–108
[2018-07-24] MEDS ORDERED: cloNIDine 0.1 MG TAB PO ONE (02:30)
[2018-07-24] MEDS ORDERED: METOPROLOL 5 MG/5 ML VIAL IV PRN (02:30)
[2018-07-24] MEDS: LORazepam 2 MG TAB PO PRN (04:39)
[2018-07-24] MEDS: SLF 3 ML SYR IV SCH ×3 (05:51→22:29)
--- NOTE | 2018-07-24 07:38 | ECHO ---
DATE OF PROCEDURE: 07/22/2018 REFERRING PROVIDER: Dr. Esther Latif PATIENT LOCATION: Room 3223 REASON FOR THE ECHOCARDIOGRAM: Atrial fibrillation, history of CHF secondary to left ventricular systolic dysfunction. 2D MEASUREMENTS: IVS: 1.3 cm LV: 1.3 cm LV: 4.7 LVPW: 1.2 cm LA: 3.3 cm Aorta: 3.4 cm IVC: 1.5 cm DOPPLER MEASUREMENTS: Peak velocity across the aortic valve: 0.97 m/s Peak velocity across the LVOT: 0.64 m/s Mitral E: 0.44 Mitral A: 0.42 with a ratio of 1.0 Maximum tricuspid valve velocity 2.0 m/s 2D COMMENTS: 1. Normal left ventricular size and systolic function. There is mildly increased left wall thickness, and normal global left ventricular systolic function. The estimated global left ventricular systolic ejection fraction is 60-65%. 2. Normal left atrium. Normal right atrium and left ventricle. 3. The atrial septum appeared to be normal without evidence of defect or shunt. 4. Normal aortic root. 5. No pericardial effusion. 6. Mildly calcified aortic valve with normal leaflet excursion. Normal mitral valve, tricuspid valve, The pulmonic valve and proximal pulmonary branches were not well visualized. 7. The inferior vena cava was normal in size, central venous pressure is most likely normal. DOPPLER: It detects trace mitral regurgitation and mild tricuspid regurgitation. The calculated pulmonary artery systolic pressure is about 30 mmHg. Assessment of the left ventricular diastolic function was negative. IMPRESSION: 1. Normal global left ventricular systolic function. Assessment of the ventricular diastolic function was negative. There was mild concentric left ventricular hypertrophy. 2. Aortic valve sclerosis without stenosis or aortic regurgitation. 3. Trace mitral regurgitation. 4. Patient's test was in normal sinus rhythm. 5. Mild tricuspid regurgitation with probably mild pulmonary hypertension.
[2018-07-24] MEDS: CHLORTHALIDONE 12.5MG PER 1/2 TABLET PO SCH (07:51)
[2018-07-24] MEDS: ACETAMINOPHEN TAB 650MG DOSE (2X325MG) PO PRN (07:51)
[2018-07-24] MEDS: OMEPRAZOLE 20 MG CAP PO SCH (07:52)
[2018-07-24] MEDS: FOLIC ACID 1 MG TAB PO SCH (07:52)
[2018-07-24] MEDS: CARVedilol 12.5 MG TAB PO SCH ×2 (07:52→20:14)
[2018-07-24] MEDS: DULoxetine 30 MG CAP (CYMBALTA) PO SCH (07:53)
[2018-07-24] MEDS: GABAPENTIN 400 MG CAP PO SCH ×2 (07:53→20:13)
[2018-07-24] MEDS: LOSARTAN 25 MG TAB PO SCH (07:53)
[2018-07-24] MEDS: THIAMINE 100 MG TAB PO SCH ×2 (07:53→20:13)
[2018-07-24] MEDS: MULTIVITAMINS/MINERALS THERAP 1 TAB PO SCH (07:53)
[2018-07-24 10:06] LABS: BLOOD UREA NITROGEN 22 MG/DL (7-18); CALCIUM LEVEL 8.5 MG/DL (8.5-10.1); CARBON DIOXIDE LEVEL 22 MEQ/L (21-32); CHLORIDE LEVEL 98 MEQ/L (98-107); CREATININE FOR GFR 1.16 MG/DL (0.70-1.30); GLOMERULAR FILTRATION RATE > 60.0 (>56); GLUCOSE, FASTING 112 MG/DL (70-100); POTASSIUM SERUM 3.7 MEQ/L (3.5-5.1); SODIUM LEVEL 129 MEQ/L (136-145)
[2018-07-24] MEDS ORDERED: LOSARTAN 25 MG TAB PO ONE (16:00)
--- NOTE | 2018-07-24 16:22 | IPNPDOC ---
Date Seen The patient was seen on 07/24/18. Progress Note SUBJECTIVE: Pt c/o severe headache with IV Ig infusion and uncontrolled blood pressure requiring tylenol and iv metoprolol respectively. Pt is apprehensive about future headaches with more ivig, and requesting tylenol which helped yesterday. PHYSICAL EXAMINATION: VITALS:pls see below GENERAL: Awake, alert and oriented times three. Face is symmetric. no facial drooping. Speech is fluent. He is not in acute distress. anicteric no jaundice HEENT: Atraumatic. Pupils equal, round, and reactive to light and accomodation. Ears, nose and throat normal. LUNGS: Clear. No crackles. No wheezing. HEART: S1, S2, regular. No murmur. ABDOMEN: Soft, bowel sounds positive, nontender. LOWER EXTREMITIES: He does not have edema in his bilateral lower extremities. NEUROLOGIC: decreased sensation in b/l arms, hands. motor 5/5/ x 4 extremities. no dysmetria on finger to nose testing. SKIN: No rash. PSYCHOLOGICAL: No acute psychosis. 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 Pt was seen at [facility] neurology on Friday by Susana Pressley when he was c/o b/l feet numbness. "I usually jump up when she strokes my feet because of really bad pain, but I barely felt her examine my feet. It was very numb." He also c/o upper back pain by the shoulder blades with b/l hand numbness, some "shakiness," and difficulty handling his utensils when he eats since Friday. No changes in gait, or falls at home. no sob, chest heaviness, or WADSWORTH. no fever, chills, URI, diarrhea, or sick contacts. In the ER, motor function b/l UE and LE wnl 5/5, gait was intact. MRI brain and cervical spine pending result. Pt was found to have sbp >200, dbp>100mmHg without c/o changes in vision or headache. Bilateral Hand numbness r/o b/l carpal tunnel syndrome as outpt. 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 ORtho referral for release. MRI brain and cervical spine are unremearkable. PCU telemetry monitoring, and neurochecks. 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 Ne urology consulted, Dr. lord who recommended IVIG x 5 days. Possible Recurrent Guillaine-[place] 5days IVIg with c/o headache after 1st hr of infusion on 07/22/18 which improved with slowing down the infusion. Dr. Lord consulted, Neurology. 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 PCU telemetry monitoring, and neurochecks. if negative MRI brain and cspine, lumbar puncture in am to rule out recurrent guillaine barre. Neurology consulted, Dr. lord. 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 lumbar puncture to rule out recurrent guillaine barre. Neurology consulted, Dr. lord. Hypertensive urgency, resolved patient and patient's both say that he is compliant with his meds, and his lower back pain is chronic. pt is resumed on his home meds: losartan, coreg. he did receive labetalol in ER. CT head negative for acute ich or cva. chrnonic small vessel ischemic disease. Due to hypotension 94/60 on 07/23/18, hydralazine has been discontinued. monitor renal function. Atrial fibrillation on chronic anticoagulation currently rate controlled. on telemetry and resumed on home dose of amiodarone and coreg. pt has had multiple dc ardioversionsx3, and ablation per . 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 Neurology recommends changing amiodarone dueto neuropathy Acid reflux. continue on PPI History of GI bleed - Sigmoid colon, polyps, polypectomy with Adenomatous polyp/tubular adenoma, hyperplastic polyp -no acute issues Diet: CYNDY diet DVT prophylaxis: on chronic ac. disposition: to complete 5days ivig. VS, I&O, 24H, Fishbone Vital Signs/I&O Vital Signs Date Time Temp Pulse Resp B/P (MAP) Pulse Ox O2 Delivery O2 Flow Rate FiO2 07/24/18 12:00 98.6 66 18 154/80 (104) 97 07/21/18 11:07 Room Air I&O- Last 24 Hours up to 6 AM 07/24/18 06:00 Intake Total 400 ml Output Total 1520 ml Balance -1120 ml Laboratory Data 24H LABS Laboratory Tests 2 07/24/18 08:42: Anion Gap 9, Glomerular Filtration Rate > 60.0, Blood Urea Nitrogen 22H, Creatinine 1.16, Sodium Level 129L, Potassium Level 3.7, Chloride Level 98, Carbon Dioxide Level 22, Calcium Level 8.5 CBC/BMP Laboratory Tests 07/24/18 08:42 Calcium Level 8.5 Microbiology Microbiology 07/22/18 Gram Stain - Final, Complete 07/22/18 CSF Culture - Final, Complete 07/22/18 - Final, Complete GLORIA IGLESIAS MD Jul 24, 2018 16:21
[2018-07-24] MEDS: NICOTINE 14 MG/24 HR TRANSDERMAL TD SCH (16:29)
[2018-07-24] MEDS: RIVAROXABAN 20 MG TAB (XARELTO) PO SCH (16:29)
[2018-07-24] MEDS: ACETAMINOPHEN 500 MG TAB PO SCH (20:12)
[2018-07-24] MEDS: AMIODARONE 200 MG TAB (PACERONE) PO SCH (20:13)
[2018-07-24] MEDS: IMMUNE GLOBULIN 10% 40 GM in APPROPRIATE DILUENT 1 EA IV SCH (22:29)
[2018-07-25] VITALS (15 sets, daily range): BP systolic 102–158; BP diastolic 61–98
[2018-07-25] MEDS: SLF 3 ML SYR IV SCH ×3 (05:04→22:00)
[2018-07-25 06:07] LABS: BASO # 0.1 10^3/uL (0.0-0.2); BASO % 1.6 % (0.0-1.0); EOS # 0.1 10^3/uL (0.0-0.50); EOS % 1.4 % (0.0-3.0); HEMATOCRIT 44.9 % (42.0-52.0); HEMOGLOBIN 15.8 g/dl (13.5-17.5); LYMPH # 1.2 10^3/uL (1.5-4.5); LYMPH % 23.2 % (24.0-44.0); MEAN CORPUSCULAR HEMOGLOBIN 34.1 pg (27.0-33.0); MEAN CORPUSCULAR HGB CONC 35.2 g/dl (32.0-36.5); MONO # 0.8 10^3/uL (0.0-0.8); MONO % 16.4 % (0.0-5.0); NEUTROPHILS # 2.8 10^3/uL (1.8-7.7); NEUTROPHILS % 56.8 % (36.0-66.0); PLATELET COUNT, AUTOMATED 177 10^3/uL (150-450); RED BLOOD COUNT 4.63 10^6/uL (4.30-6.10)
[2018-07-25 06:29] LABS: BLOOD UREA NITROGEN 27 MG/DL (7-18); CALCIUM LEVEL 8.6 MG/DL (8.5-10.1); CARBON DIOXIDE LEVEL 26 MEQ/L (21-32); CHLORIDE LEVEL 98 MEQ/L (98-107); CREATININE FOR GFR 1.23 MG/DL (0.70-1.30); GLOMERULAR FILTRATION RATE > 60.0 (>56); GLUCOSE, FASTING 93 MG/DL (70-100); POTASSIUM SERUM 3.6 MEQ/L (3.5-5.1); SODIUM LEVEL 131 MEQ/L (136-145)
[2018-07-25] MEDS: CARVedilol 12.5 MG TAB PO SCH ×2 (07:58→20:04)
[2018-07-25] MEDS: CHLORTHALIDONE 12.5MG PER 1/2 TABLET PO SCH (07:58)
[2018-07-25] MEDS: GABAPENTIN 400 MG CAP PO SCH ×2 (08:05→20:04)
[2018-07-25] MEDS: MULTIVITAMINS/MINERALS THERAP 1 TAB PO SCH (08:05)
[2018-07-25] MEDS: OMEPRAZOLE 20 MG CAP PO SCH (08:05)
[2018-07-25] MEDS: FOLIC ACID 1 MG TAB PO SCH (08:05)
[2018-07-25] MEDS: THIAMINE 100 MG TAB PO SCH ×2 (08:05→20:04)
[2018-07-25] MEDS: DULoxetine 30 MG CAP (CYMBALTA) PO SCH (08:06)
[2018-07-25] MEDS ORDERED: LOSARTAN 50 MG TAB PO SCH ×2 (09:00→21:00)
--- NOTE | 2018-07-25 11:54 | IPNPDOC ---
Date Seen The patient was seen on 07/25/18. Progress Note SUBJECTIVE: Anxious to go home tomorrow to spend Easter Friday with his family. No c/o headache with ivig last night since tylenol had been given 2hrs before infusion. Still c/o b/l hand numbness, and b/l feet numbness. He is agreeable with neurology fu for emg/ncs as outpt. no other issues on tele. no new neurologic deficits per RN. PHYSICAL EXAMINATION: VITALS:pls see below GENERAL: Awake, alert and oriented times three. Face is symmetric. no facial drooping. Speech is fluent. He is not in acute distress. anicteric no jaundice HEENT: Atraumatic. Pupils equal, round, and reactive to light and accomodation. Ears, nose and throat normal. LUNGS: Clear. No crackles. No wheezing. HEART: S1, S2, regular. No murmur. ABDOMEN: Soft, bowel sounds positive, nontender. LOWER EXTREMITIES: He does not have edema in his bilateral lower extremities. NEUROLOGIC: decreased sensation in b/l arms, hands. motor 5/5/ x 4 extremities. no dysmetria on finger to nose testing. SKIN: No rash. PSYCHOLOGICAL: No acute psychosis. 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 Pt was seen at [facility] neurology on Friday by Susana Pressley when he was c/o b/l feet numbness. "I usually jump up when she strokes my feet because of really bad pain, but I barely felt her examine my feet. It was very numb." He also c/o upper back pain by the shoulder blades with b/l hand numbness, some "shakiness," and difficulty handling his utensils when he eats si nce Friday. No changes in gait, or falls at home. no sob, chest heaviness, or WADSWORTH. no fever, chills, URI, diarrhea, or sick contacts. In the ER, motor function b/l UE and LE wnl 5/5, gait was intact. MRI brain and cervical spine pending result. Pt was found to have sbp >200, dbp>100mmHg without c/o changes in vision or headache. Bilateral Hand numbness r/o b/l carpal tunnel syndrome as outpt. 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 ORtho referral for release. MRI brain and cervical spine are unremearkable. PCU telemetry monitoring, and neurochecks. 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 Neurology consulted, Dr. lord who recommended IVIG x 5 days. Possible Recurrent Guillaine-[place] 5days IVIg with c/o headache after 1st hr of infusion on 07/22/18 which improved with slowing down the infusion. Dr. Lord consulted, Neurology. 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 PCU telemetry monitoring, and neurochecks. if negative MRI brain and cspine, lumbar puncture in am to rule out recurrent guillaine barre. Neurology consulted, Dr. lord. 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 lumbar puncture to rule out recurrent guillaine barre. Neurology consulted, Dr. lord. Hypertensive urgency, resolved patient and patient's both say that he is compliant with his meds, and his lower back pain is chronic. pt is resumed on his home meds: losartan, coreg. he did receive labetalol in ER. CT head negative for acute ich or cva. chrnonic small vessel ischemic disease. Due to hypotension 94/60 on 07/23/18, hydralazine has been discontinued. monitor renal function. Atrial fibrillation on chronic anticoagulation currently rate controlled. on telemetry and resumed on home dose of amiodarone and coreg. pt has had multiple dc ardioversionsx3, and ablation per . 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 Neurology recommends changing amiodarone dueto neuropathy Acid reflux. continue on PPI History of GI bleed - Sigmoid colon, polyps, polypectomy with Adenomatous polyp/tubular adenoma, hyperplastic polyp -no acute issues Diet: CYNDY diet DVT prophylaxis: on chronic ac. disposition: to complete 5days ivig. VS, I&O, 24H, Fishbone Vital Signs/I&O Vital Signs Date Time Temp Pulse Resp B/P (MAP) Pulse Ox O2 Delivery O2 Flow Rate FiO2 07/25/18 10:30 97.8 67 18 128/86 (100) 96 07/21/18 11:07 Room Air I&O- Last 24 Hours up to 6 AM 07/25/18 06:00 Intake Total 1540 ml Output Total 1500 ml Balance 40 ml Laboratory Data 24H LABS Laboratory Tests 2 07/25/18 05:48: Immature Granulocyte % (Auto) 0.6, White Blood Count 5.0, Red Blood Count 4.63, Hemoglobin 15.8, Hematocrit 44.9, Mean Corpuscular Volume 97.0H, Mean Corpuscular Hemoglobin 34.1H, Mean Corpuscular Hemoglobin Concent 35.2, Red Cell Distribution Width 13.4, Platelet Count 177, Neutrophils (%) (Auto) 56.8, Lymphocytes (%) (Auto) 23.2L, Monocytes (%) (Auto) 16.4H, Eosinophils (%) (Auto) 1.4, Basophils (%) (Auto) 1.6H, Neutrophils # (Auto) 2.8, Lymphocytes # (Auto) 1.2L, Monocytes # (Auto) 0.8, Eosinophils # (Auto) 0.1, Basophils # (Auto) 0.1, Nucleated Red Blood Cells % (auto) 0.0, Anion Gap 7L, Glomerular Filtration Rate > 60.0, Blood Urea Nitrogen 27H, Creatinine 1.23, Sodium Level 131L, Potassium Level 3.6, Chloride Level 98, Carbon Dioxide Level 26, Calcium Level 8.6 CBC/BMP Laboratory Tests 07/25/18 05:48 Red Blood Count 4.63, Mean Corpuscular Volume 97.0 H, Mean Corpuscular Hemoglobin 34.1 H, Mean Corpuscular Hemoglobin Concent 35.2, Red Cell Distribution Width 13.4, Neutrophils (%) (Auto) 56.8, Lymphocytes (%) (Auto) 23.2 L, Monocytes (%) (Auto) 16.4 H, Eosinophils (%) (Auto) 1.4, Basophils (%) (Auto) 1.6 H, Neutrophils # (Auto) 2.8, Lymphocytes # (Auto) 1.2 L, Monocytes # (Auto) 0.8, Eosinophils # (Auto) 0.1, Basophils # (Auto) 0.1, Calcium Level 8.6 Microbiology Microbiology 07/22/18 Gram Stain - Final, Complete 07/22/18 CSF Culture - Final, Complete 07/22/18 - Final, Complete GLORIA IGLESIAS MD Jul 25, 2018 11:54
[2018-07-25] MEDS: ACETAMINOPHEN TAB 650MG DOSE (2X325MG) PO PRN (17:52)
[2018-07-25] MEDS: RIVAROXABAN 20 MG TAB (XARELTO) PO SCH (17:52)
[2018-07-25] MEDS: NICOTINE 14 MG/24 HR TRANSDERMAL TD SCH (17:52)
[2018-07-25] MEDS ORDERED: MOM 30ML SUSPENSION UDC PO PRN (18:30)
[2018-07-25] MEDS ORDERED: SENOKOT S TAB PO PRN (18:30)
[2018-07-25] MEDS: AMIODARONE 200 MG TAB (PACERONE) PO SCH (20:04)
[2018-07-25] MEDS: ACETAMINOPHEN 500 MG TAB PO SCH (20:04)
[2018-07-25] MEDS: IMMUNE GLOBULIN 10% 40 GM in APPROPRIATE DILUENT 1 EA IV SCH (23:17)
[2018-07-26] VITALS (24 sets, daily range): BP systolic 110–160; BP diastolic 76–98
[2018-07-26] MEDS: SLF 3 ML SYR IV SCH ×2 (06:00→14:00)
[2018-07-26 06:13] LABS: BASO # 0.1 10^3/uL (0.0-0.2); BASO % 1.5 % (0.0-1.0); EOS # 0.1 10^3/uL (0.0-0.50); EOS % 1.5 % (0.0-3.0); HEMATOCRIT 47.9 % (42.0-52.0); HEMOGLOBIN 16.4 g/dl (13.5-17.5); LYMPH # 1.3 10^3/uL (1.5-4.5); MEAN CORPUSCULAR HEMOGLOBIN 33.3 pg (27.0-33.0); MEAN CORPUSCULAR HGB CONC 34.2 g/dl (32.0-36.5); MEAN CORPUSCULAR VOLUME 97.4 fl (80.0-96.0); MONO # 0.8 10^3/uL (0.0-0.8); MONO % 17.7 % (0.0-5.0); NEUTROPHILS # 2.4 10^3/uL (1.8-7.7); NEUTROPHILS % 51.9 % (36.0-66.0); PLATELET COUNT, AUTOMATED 166 10^3/uL (150-450); RED BLOOD COUNT 4.92 10^6/uL (4.30-6.10); WHITE BLOOD COUNT 4.6 10^3/uL (4.0-10.0)
[2018-07-26 06:24] LABS: BLOOD UREA NITROGEN 29 MG/DL (7-18); CALCIUM LEVEL 8.4 MG/DL (8.5-10.1); CARBON DIOXIDE LEVEL 28 MEQ/L (21-32); CHLORIDE LEVEL 96 MEQ/L (98-107); CREATININE FOR GFR 1.17 MG/DL (0.70-1.30); GLOMERULAR FILTRATION RATE > 60.0 (>56); GLUCOSE, FASTING 89 MG/DL (70-100); POTASSIUM SERUM 3.4 MEQ/L (3.5-5.1); SODIUM LEVEL 130 MEQ/L (136-145)
[2018-07-26] MEDS ORDERED: THIA100TA PO (06:45)
[2018-07-26] MEDS ORDERED: COZA50TA PO (06:45)
[2018-07-26] MEDS ORDERED: CHLO125TA PO ×2 (06:45→06:48)
[2018-07-26] MEDS ORDERED: POTASSIUM CHLORIDE 10 MEQ SR TABLET PO ONE (06:45)
--- NOTE | 2018-07-26 07:23 | IPNPDOC ---
Date Seen The patient was seen on 07/26/18. Progress Note Progress Note SUBJECTIVE: During last night's infusion, pt's blood pressure initially decreased to 111 but increased to 145 later in the night. Anxious to go home to spend [place] family. No c/o headache with ivig last night since tylenol had been given 2hrs before infusion. Still c/o b/l hand numbness, and b/l feet numbness. He is agreeable with neurology fu for emg/ncs as outpt. no other issues on tele. no new neurologic deficits per RN. PHYSICAL EXAMINATION: VITALS:pls see below GENERAL: Awake, alert and oriented times three. Face is symmetric. no facial drooping. Speech is fluent. He is not in acute distress. anicteric no jaundice HEENT: Atraumatic. Pupils equal, round, and reactive to light and accomodation. Ears, nose and throat normal. LUNGS: Clear. No crackles. No wheezing. HEART: S1, S2, regular. No murmur. ABDOMEN: Soft, bowel sounds positive, nontender. LOWER EXTREMITIES: He does not have edema in his bilateral lower extremities. NEUROLOGIC: decreased sensation in b/l arms, hands. motor 5/5/ x 4 extremities. no dysmetria on finger to nose testing. SKIN: No rash. PSYCHOLOGICAL: No acute psychosis. 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 Pt was seen at [facility] neurology on Friday by Susana Pressley when he was c/o b/l feet numbness. "I usually jump up when she strokes my feet because of really bad pain, but I barely felt her examine my feet. It was very numb." He also c/o upper back pain by the shoulder blades with b/l hand numbness, some "shakiness," and difficulty handling his utensils when he eats since Friday. No changes in gait, or falls at home. no sob, chest heaviness, or WADSWORTH. no fever, chills, URI, diarrhea, or sick contacts. In the ER, motor function b/l UE and LE wnl 5/5, gait was intact. MRI brain and cervical spine pending result. Pt was found to have sbp >200, dbp>100mmHg without c/o changes in vision or headache. Bilateral Hand numbness r/o b/l carpal tunnel syndrome as outpt. 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 ORtho referral for release. MRI brain and cervical spine are unremearkable. PCU telemetry monitoring, and neurochecks. 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 Neurology consulted, Dr. lord who recommended IVIG x 5 days. Possible Recurrent Guillaine-[place] 5days IVIg with c/o headache after 1st hr of infusion on 07/22/18 which improved with slowing down the infusion. Dr. Lord consulted, Neurology. 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 PCU telemetry monitoring, and neurochecks. if negative MRI brain and cspine, lumbar puncture in am to rule out recurrent guillaine barre. Neurology consulted, Dr. lord. 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 lumbar puncture to rule out recurrent guillaine barre. Neurology consulted, Dr. lord. Hypertensive urgency, resolved patient and patient's both say that he is compliant with his meds, and his lower back pain is chronic. pt is resumed on his home meds: losartan, coreg. he did receive labetalol in ER. CT head negative for acute ich or cva. chrnonic small vessel ischemic disease. Due to hypotension 94/60 on 07/23/18, hydralazine has been discontinued. monitor renal function. Atrial fibrillation on chronic anticoagulation currently rate controlled. on telemetry and resumed on home dose of amiodarone and coreg. pt has had multiple dc ardioversionsx3, and ablation per . 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 Neurology recommends changing amiodarone dueto neuropathy Acid reflux. continue on PPI History of GI bleed - Sigmoid colon, polyps, polypectomy with Adenomatous polyp/tubular adenoma, hyperplastic polyp -no acute issues Diet: CYNDY diet DVT prophylaxis: on chronic ac. disposition: to complete 5days ivig.awaiting clearance from neurology. pt wants to go home for amy today. VS, I&O, 24H, Fishbone Vital Signs/I&O Vital Signs Date Time Temp Pulse Resp B/P (MAP) Pulse Ox O2 Delivery O2 Flow Rate FiO2 07/26/18 06:00 97.2 64 18 140/96 (111) 94 07/21/18 11:07 Room Air I&O- Last 24 Hours up to 6 AM 07/26/18 06:00 Intake Total 1080 ml Output Total 400 ml Balance 680 ml Laboratory Data 24H LABS Laboratory Tests 2 07/26/18 05:30: Immature Granulocyte % (Auto) 0.4, White Blood Count 4.6, Red Blood Count 4.92, Hemoglobin 16.4, Hematocrit 47.9, Mean Corpuscular Volume 97.4H, Mean Corpuscular Hemoglobin 33.3H, Mean Corpuscular Hemoglobin Concent 34.2, Red Cell Distribution Width 13.5, Platelet Count 166, Neutrophils (%) (Auto) 51.9, Lymphocytes (%) (Auto) 27.0, Monocytes (%) (Auto) 17.7H, Eosinophils (%) (Auto) 1.5, Basophils (%) (Auto) 1.5H, Neutrophils # (Auto) 2.4, Lymphocytes # (Auto) 1.3L, Monocytes # (Auto) 0.8, Eosinophils # (Auto) 0.1, Basophils # (Auto) 0.1, Nucleated Red Blood Cells % (auto) 0.0, Anion Gap 6L, Glomerular Filtration Rate > 60.0, Blood Urea Nitrogen 29H, Creatinine 1.17, Sodium Level 130L, Potassium Level 3.4L, Chloride Level 96L, Carbon Dioxide Level 28, Calcium Level 8.4L CBC/BMP Laboratory Tests 07/26/18 05:30 Red Blood Count 4.92, Mean Corpuscular Volume 97.4 H, Mean Corpuscular Hemoglobin 33.3 H, Mean Corpuscular Hemoglobin Concent 34.2, Red Cell Distribution Width 13.5, Neutrophils (%) (Auto) 51.9, Lymphocytes (%) (Auto) 27.0, Monocytes (%) (Auto) 17.7 H, Eosinophils (%) (Auto) 1.5, Basophils (%) (Auto) 1.5 H, Neutrophils # (Auto) 2.4, Lymphocytes # (Auto) 1.3 L, Monocytes # (Auto) 0.8, Eosinophils # (Auto) 0.1, Basophils # (Auto) 0.1, Calcium Level 8.4 L Microbiology Microbiology 07/22/18 Gram Stain - Final, Complete 07/22/18 CSF Culture - Final, Complete 07/22/18 - Final, Complete GLORIA IGLESIAS MD Jul 26, 2018 07:23
[2018-07-26] MEDS: CHLORTHALIDONE 12.5MG PER 1/2 TABLET PO SCH (09:00)
[2018-07-26] MEDS: CARVedilol 12.5 MG TAB PO SCH (09:00)
[2018-07-26] MEDS: FOLIC ACID 1 MG TAB PO SCH (09:10)
[2018-07-26] MEDS: DULoxetine 30 MG CAP (CYMBALTA) PO SCH (09:11)
[2018-07-26] MEDS: MULTIVITAMINS/MINERALS THERAP 1 TAB PO SCH (09:12)
[2018-07-26] MEDS: OMEPRAZOLE 20 MG CAP PO SCH (09:12)
[2018-07-26] MEDS: GABAPENTIN 400 MG CAP PO SCH (09:12)
[2018-07-26] MEDS: THIAMINE 100 MG TAB PO SCH (09:13)
[2018-07-26] MEDS: IMMUNE GLOBULIN 10% 40 GM in APPROPRIATE DILUENT 1 EA IV SCH (15:47)
[2018-07-26] MEDS: ACETAMINOPHEN TAB 650MG DOSE (2X325MG) PO PRN (15:55)
[2018-07-26] MEDS: RIVAROXABAN 20 MG TAB (XARELTO) PO SCH (17:14)
[2018-07-26] MEDS: NICOTINE 14 MG/24 HR TRANSDERMAL TD SCH (17:14)
--- NOTE | 2018-07-26 20:52 | DS.PDOC ---
Discharge Summary General Date of Admission Jul 21, 2018 at 12:16 Date of Discharge July 26, 2018 Discharge Summary NEUROLOGIST: DR. LORD DISCHARGE DIAGNOSES: Suspected peripheral neuropathy History of Guillain [place] Syndrome in 1997. 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 Pt was seen at [facility] neurology on Friday by Susana Pressley when he was c/o b/l feet numbness. "I usually jump up when she strokes my feet because of really bad pain, but I barely felt her examine my feet. It was very numb." He also c/o upper back pain by the shoulder blades with b/l hand numbness, some "shakiness," and difficulty handling his utensils when he eats since Friday. No changes in gait, or falls at home. no sob, chest heaviness, or WADSWORTH. no fever, chills, URI, diarrhea, or sick contacts. In the ER, motor function b/l UE and LE wnl 5/5, gait was intact. MRI brain and cervical spine pending result. Pt was found to have sbp >200, dbp>100mmHg without c/o changes in vision or headache. HOSPITAL COURSE: Bilateral Hand numbness r/o b/l carpal tunnel syndrome as outpt. 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 ORtho referral for release. MRI brain and cervical spine are unremearkable. PCU telemetry monitoring, and neurochecks. 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 Neurology consulted, Dr. lord who recommended IVIG x 5 days. Possible Recurrent Guillaine-[place] 5days IVIg with c/o headache after 1st hr of infusion on 07/22/18 which improved with slowing down the infusion. Dr. Lord consulted, Neurology. 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 PCU telemetry monitoring, and neurochecks. if negative MRI brain and cspine, lumbar puncture in am to rule out recurrent guillaine barre. Neurology consulted, Dr. lord. 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 lumbar puncture to rule out recurrent guillaine barre. Neurology consulted, Dr. lord. Hypertensive urgency, resolved patient and patient's both say that he is compliant with his meds, and his lower back pain is chronic. pt is resumed on his home meds: losartan, coreg. he did receive labetalol in ER. CT head negative for acute ich or cva. chrnonic small vessel ischemic disease. Due to hypotension 94/60 on 07/23/18, hydralazine has been discontinued. monitor renal function. Atrial fibrillation on chronic anticoagulation currently rate controlled. on telemetry and resumed on home dose of amiodarone and coreg. pt has had multiple dc ardioversionsx3, and ablation per . 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 Neurology recommends changing amiodarone dueto neuropathy Acid reflux. continue on PPI History of GI bleed - Sigmoid colon, polyps, polypectomy with Adenomatous polyp/tubular adenoma, hyperplastic polyp -no acute issues Diet: CYNDY diet DVT prophylaxis: on chronic ac. DISCHARGE PHYSICAL EXAMINATION: VITALS:pls see below GENERAL: Awake, alert and oriented times three. Face is symmetric. no facial drooping. Speech is fluent. He is not in acute distress. anicteric no jaundice HEENT: Atraumatic. Pupils equal, round, and reactive to light and accomodation. Ears, nose and throat normal. LUNGS: Clear. No crackles. No wheezing. HEART: S1, S2, regular. No murmur. ABDOMEN: Soft, bowel sounds positive, nontender. LOWER EXTREMITIES: He does not have edema in his bilateral lower extremities. NEUROLOGIC: decreased sensation in b/l arms, hands. motor 5/5/ x 4 extremities. no dysmetria on finger to nose testing. SKIN: No rash. PSYCHOLOGICAL: No acute psychosis. Laboratory data,microbiology imaging studies: pls see below TIME SPENT ON DISCHARGE : 30 MIN Vital Signs/I&Os Vital Signs Date Time Temp Pulse Resp B/P (MAP) Pulse Ox O2 Delivery O2 Flow Rate FiO2 07/26/18 18:50 98.2 69 18 150/96 (114) 96 07/21/18 11:07 Room Air I&O- Last 24 Hours up to 6 AM 07/26/18 06:00 Intake Total 1080 ml Output Total 400 ml Balance 680 ml Laboratory Data Labs 24H Laboratory Tests 2 07/26/18 05:30: Immature Granulocyte % (Auto) 0.4, White Blood Count 4.6, Red Blood Count 4.92, Hemoglobin 16.4, Hematocrit 47.9, Mean Corpuscular Volume 97.4H, Mean Corpuscular Hemoglobin 33.3H, Mean Corpuscular Hemoglobin Concent 34.2, Red Cell Distribution Width 13.5, Platelet Count 166, Neutrophils (%) (Auto) 51.9, Lymphocytes (%) (Auto) 27.0, Monocytes (%) (Auto) 17.7H, Eosinophils (%) (Auto) 1.5, Basophils (%) (Auto) 1.5H, Neutrophils # (Auto) 2.4, Lymphocytes # (Auto) 1.3L, Monocytes # (Auto) 0.8, Eosinophils # (Auto) 0.1, Basophils # (Auto) 0.1, Nucleated Red Blood Cells % (auto) 0.0, Anion Gap 6L, Glomerular Filtration Rate > 60.0, Blood Urea Nitrogen 29H, Creatinine 1.17, Sodium Level 130L, Potassium Level 3.4L, Chloride Level 96L, Carbon Dioxide Level 28, Calcium Level 8.4L CBC/BMP Laboratory Tests 07/26/18 05:30 Red Blood Count 4.92, Mean Corpuscular Volume 97.4 H, Mean Corpuscular Hemoglobin 33.3 H, Mean Corpuscular Hemoglobin Concent 34.2, Red Cell Distr ibution Width 13.5, Neutrophils (%) (Auto) 51.9, Lymphocytes (%) (Auto) 27.0, Monocytes (%) (Auto) 17.7 H, Eosinophils (%) (Auto) 1.5, Basophils (%) (Auto) 1.5 H, Neutrophils # (Auto) 2.4, Lymphocytes # (Auto) 1.3 L, Monocytes # (Auto) 0.8, Eosinophils # (Auto) 0.1, Basophils # (Auto) 0.1, Calcium Level 8.4 L Microbiology Microbiology 07/22/18 Gram Stain - Final, Complete 07/22/18 CSF Culture - Final, Complete 07/22/18 - Final, Complete Discharge Medications Scheduled Amiodarone HCl (Amiodarone HCl) 200 Mg Tab, 200 MG PO QHS, (Reported) Carvedilol (Carvedilol) 25 Mg Tab, 25 MG PO BID, (Reported) Chlorthalidone (Chlorthalidone) 25 Mg Tablet, 12.5 MG PO DAILY Gabapentin (Gabapentin) 800 Mg Tablet, 800 MG PO DAILY, (Reported) Gabapentin (Gabapentin) 800 Mg Tablet, 1,600 MG PO QHS, (Reported) Losartan Potassium (Cozaar) 50 Mg Tablet, 50 MG PO QHS Nicotine (Nicotine Patch) 1 Each Patch.td24, 1 PATCH TD DAILY@1800 Omeprazole (Omeprazole) 40 Mg Capsule.dr, 40 MG PO DAILY, (Reported) Rivaroxaban (Xarelto) 20 Mg Tablet, 20 MG PO QHS, (Reported) Thiamine Hcl (Vitamin B-1) 100 Mg Tablet, 100 MG PO BID Scheduled PRN Acetaminophen with Codeine (Tylenol with Codeine #3 Tablet) 1 Each Tablet, 1 TAB PO QHS PRN for PAIN, (Reported) Cyclobenzaprine HCl (Cyclobenzaprine HCl) 10 Mg Tab, 10 MG PO TID PRN for SPASMS, (Reported) Allergies Coded Allergies: lisinopril (Verified Allergy, Unknown, 07/21/18) GLORIA IGLESIAS MD Jul 26, 2018 20:49
[2018-07-28 00:06] LABS: COPPER PLASMA 128 ug/dL (72-166); LEAD BLOOD ADULT 2 ug/dL (0-4); Lyme Disease IgG Ab 18 kDa Ban Absent (.); Lyme Disease IgG Ab 23 kDa Ban Absent (.); Lyme Disease IgG Ab 28 kDa Ban Absent (.); Lyme Disease IgG Ab 30 kDa Ban Absent (.); Lyme Disease IgG Ab 39 kDa Ban Absent (.); Lyme Disease IgG Ab 41 kDa Ban Absent (.); Lyme Disease IgG Ab 45 kDa Ban Absent (.); Lyme Disease IgG Ab 58 kDa Ban Absent (.); Lyme Disease IgG Ab 66 kDa Ban Absent (.); Lyme Disease IgG Ab 93 kDa Ban Absent (.); Lyme Disease IgG West Blot Int Negative (.); Lyme Disease IgG/IgM Antibodie <0.91 ISR (0.00-0.90); Lyme Disease IgM Ab 23 kDa Ban Absent (.); Lyme Disease IgM Ab 39 kDa Ban Absent (.); Lyme Disease IgM Ab 41 kDa Ban Absent (.); Lyme Disease IgM Ab Quantitati 0.92 index (0.00-0.79); Lyme Disease IgM West Blot Int Negative (.); MERCURY LEVEL None Detected ug/L (0.0-14.9)
== END 2018-07-26 19:05 | disposition home or self-care (01) | DRG 96 ==
LOC: M ED 10:11 → M ED INP 12:16 → M PCU 15:35 → M MS5PR 07-25 10:30
PROVIDERS: ADMIT General Practice; ATTEND General Practice
PROC: 009U3ZX Drainage of Spinal Canal, Percutaneous Approach, Diagnostic (ICD-10-PCS; principal; 2018-07-22)
DX: G61.0 Guillain-Barre syndrome (principal); R20.0 Anesthesia of skin; I10 Essential (primary) hypertension; I48.0 Paroxysmal atrial fibrillation; I16.0 Hypertensive urgency; G44.40 Drug-induced headache, not elsewhere classified, not intractable; G56.03 Carpal tunnel syndrome, bilateral upper limbs; K21.9 Gastro-esophageal reflux disease without esophagitis; G62.2 Polyneuropathy due to other toxic agents; I95.2 Hypotension due to drugs; F17.210 Nicotine dependence, cigarettes, uncomplicated; Z86.010 Personal history of colon polyps; Z87.19 Personal history of other diseases of the digestive system; Z90.49 Acquired absence of other specified parts of digestive tract; Z79.01 Long term (current) use of anticoagulants; Z79.899 Other long term (current) drug therapy; Z88.8 Allergy status to other drugs, medicaments and biological substances; T46.2X5A Adverse effect of other antidysrhythmic drugs, initial encounter

== ENCOUNTER 2018-08-13 14:13 | Inpatient (IN) | payer MEDICARE ==
[~2018-08-13] VITALS: Ht 172.7 cm; Wt 86.0 kg
[~2018-08-13 14:13] MED LIST changes: +CHLO125TA PO; +COZA50TA PO; +GABA-845 PO; +GABA800T4 PO; +HYDR10TAB PO; +LOSA25TA14 PO; +NICO14PA TD; +OMEP40CA2 PO; +THIA100TA PO; +TYLETAB14 PO
[2018-08-13] MEDS ORDERED: HYDR12CA PO (14:22)
[2018-08-13 17:58] LABS: BASO # 0.1 10^3/uL (0.0-0.2); BASO % 0.7 % (0.0-1.0); EOS # 0.1 10^3/uL (0.0-0.50); EOS % 1.5 % (0.0-3.0); HEMATOCRIT 45.2 % (42.0-52.0); HEMOGLOBIN 15.7 g/dl (13.5-17.5); LYMPH # 2.3 10^3/uL (1.5-4.5); LYMPH % 25.2 % (24.0-44.0); MEAN CORPUSCULAR HEMOGLOBIN 33.5 pg (27.0-33.0); MEAN CORPUSCULAR HGB CONC 34.7 g/dl (32.0-36.5); MEAN CORPUSCULAR VOLUME 96.6 fl (80.0-96.0); NEUTROPHILS # 5.6 10^3/uL (1.8-7.7); NEUTROPHILS % 61.3 % (36.0-66.0); PLATELET COUNT, AUTOMATED 386 10^3/uL (150-450); RED BLOOD COUNT 4.68 10^6/uL (4.30-6.10); WHITE BLOOD COUNT 9.2 10^3/uL (4.0-10.0)
[2018-08-13 18:10] LABS: INR 1.1; PROTHROMBIN TIME 14.3 SECONDS (12.1-14.4)
[2018-08-13 18:11] LABS: PARTIAL THROMBOPLASTIN TIME 39.7 SECONDS (25.4-37.6)
[2018-08-13 18:27] LABS: ALBUMIN 2.6 GM/DL (3.2-5.2); ALT/SGPT 58 U/L (12-78); BILIRUBIN,DIRECT < 0.1 MG/DL (0.0-0.2); BILIRUBIN,TOTAL 0.3 MG/DL (0.2-1.0); BLOOD UREA NITROGEN 20 MG/DL (7-18); CALCIUM LEVEL 9.1 MG/DL (8.5-10.1); CARBON DIOXIDE LEVEL 32 MEQ/L (21-32); CHLORIDE LEVEL 97 MEQ/L (98-107); CK-MB VALUE MASS < 1.0 NG/ML (<3.6); CPK CREATINE PHOSPHOKINASE 54 U/L (39-308); CREATININE FOR GFR 1.06 MG/DL (0.70-1.30); FREE T4 1.49 NG/DL (0.76-1.46); GLOMERULAR FILTRATION RATE > 60.0 (>56); GLUCOSE, FASTING 93 MG/DL (70-100); LIPASE 146 U/L (73-393); MB/CK RELATIVE INDEX 1.85 (< OR =4); POTASSIUM SERUM 3.2 MEQ/L (3.5-5.1); SODIUM LEVEL 135 MEQ/L (136-145); TROPONIN I < 0.02 NG/ML (< 0.10)
--- NOTE | 2018-08-13 18:30 | REP ---
CHEST, TWO VIEWS: There is no evidence of acute infiltrate. No pleural effusion is seen. The heart is normal in size. The mediastinal silhouette is unremarkable. The visualized osseous structures are intact. IMPRESSION: No acute pulmonary disease. Electronically Signed by Carter Blanco MD 08/13/2018 06:51 P
[2018-08-13] MEDS ORDERED: POTASSIUM CHLORIDE 10 MEQ SR TABLET PO ONE (18:45)
[2018-08-13] MEDS ORDERED: LOSA50TA88 PO (18:57)
[2018-08-13] MEDS ORDERED: CHLO125TA PO (18:57)
[2018-08-13] MEDS ORDERED: B-1100TA2 PO (18:57)
[2018-08-13] MEDS ORDERED: CYCLOBENZAPRINE 10 MG TAB PO PRN (19:45)
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
[2018-08-13 20:15] VITALS: BP 160/108
[2018-08-13] MEDS ORDERED: IMMUNE GLOBULIN 10% 40 GM in APPROPRIATE DILUENT 1 EA IV ONE (23:00)
[2018-08-13] MEDS: GABAPENTIN 400 MG CAP PO SCH (23:00)
[2018-08-13] MEDS: LOSARTAN 50 MG TAB PO SCH (23:01)
[2018-08-13] MEDS: THIAMINE 100 MG TAB PO SCH (23:02)
[2018-08-13] MEDS: CARVedilol 12.5 MG TAB PO SCH (23:02)
[2018-08-13] MEDS: DOCUSATE SODIUM 100 MG CAP PO SCH (23:02)
[2018-08-13] MEDS: AMIODARONE 200 MG TAB (PACERONE) PO SCH (23:02)
[2018-08-13] MEDS: MORPHINE 4 MG/ML 1ML VIAL/SYRINGE (J2270) IV PRN (23:04)
[2018-08-14] VITALS (11 sets, daily range): BP systolic 91–151; BP diastolic 51–99; O2SAT 97
[2018-08-14] MEDS: RIVAROXABAN 20 MG TAB (XARELTO) PO SCH ×2 (01:42→17:45)
[2018-08-14] MEDS: IMMUNE GLOBULIN 10% 40 GM in APPROPRIATE DILUENT 1 EA IV SCH ×2 (01:45→23:29)
[2018-08-14] MEDS ORDERED: ACETAMINOPH W/CODEINE #3 TAB UD PO PRN (02:15)
[2018-08-14 05:05] LABS: HEMATOCRIT 42.3 % (42.0-52.0); HEMOGLOBIN 14.3 g/dl (13.5-17.5); MEAN CORPUSCULAR HEMOGLOBIN 32.9 pg (27.0-33.0); MEAN CORPUSCULAR HGB CONC 33.8 g/dl (32.0-36.5); MEAN CORPUSCULAR VOLUME 97.2 fl (80.0-96.0); PLATELET COUNT, AUTOMATED 363 10^3/uL (150-450); RED BLOOD COUNT 4.35 10^6/uL (4.30-6.10); WHITE BLOOD COUNT 8.2 10^3/uL (4.0-10.0)
[2018-08-14 05:30] LABS: BLOOD UREA NITROGEN 23 MG/DL (7-18); CARBON DIOXIDE LEVEL 32 MEQ/L (21-32); CHLORIDE LEVEL 97 MEQ/L (98-107); GLOMERULAR FILTRATION RATE > 60.0 (>56); GLUCOSE, FASTING 103 MG/DL (70-100); POTASSIUM SERUM 3.4 MEQ/L (3.5-5.1); SODIUM LEVEL 134 MEQ/L (136-145)
--- NOTE | 2018-08-14 07:34 | ECGEPIP ---
Stationary ECG Study 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
[2018-08-14] MEDS: CHLORTHALIDONE 12.5MG PER 1/2 TABLET PO SCH (09:00)
[2018-08-14] MEDS: hydroCHLOROthiazide 12.5 MG CAPSULE PO SCH (09:00)
[2018-08-14] MEDS: CARVedilol 12.5 MG TAB PO SCH ×2 (09:00→21:33)
[2018-08-14] MEDS: GABAPENTIN 400 MG CAP PO SCH ×2 (09:28→21:32)
[2018-08-14] MEDS: DOCUSATE SODIUM 100 MG CAP PO SCH ×2 (09:28→21:33)
[2018-08-14] MEDS: THIAMINE 100 MG TAB PO SCH ×2 (09:28→21:33)
[2018-08-14] MEDS: OMEPRAZOLE 20 MG CAP PO SCH (09:29)
[2018-08-14] MEDS: NICOTINE 14 MG/24 HR TRANSDERMAL TD SCH (10:22)
--- NOTE | 2018-08-14 12:45 | IPNPDOC ---
Subjective Date Seen The patient was seen on 08/14/18. Subjective Chief Complaint/HPI Patient is comfortable off was no new complaints at the present time General: Denies: ROS Unobtainable, Chills, Night Sweats, Fatigue, Malaise, Normal Appetite, Other Symptoms Constitutional: Denies: Chills, Fever, Malaise, Night Sweats, Weakness, Fatigue, Weight Loss, Lethargy, Other Eyes: Denies: Pain, Vision change, Conjunctivae inflammation, Eyelid inflammation, Redness, Other ENT: Denies: Head Aches, Ear Pain, Dysphagia, Sinus Congestion, Post Nasal Drip, Sore Throat, Epistaxis, Other Symptoms Skin: Denies: Rash, Lesions, Jaundice, Bruising, Itching, Dry, Breakdown, Nail Changes, Other Pulmonary: Denies: Dyspnea, Cough, Pleuritic Chest Pain, Other Symptoms Cardiovascular: Denies: Chest Pain, Palpitations, Orthopnea, Paroxysmal Noc. Dyspnea, Edema, Lt Headedness, Other Symptoms Gastrointestinal: Denies: Nausea, Vomiting, Abdominal Pain, Diarrhea, Consti pation, Melena, Hematochezia, Other Symptoms Genitourinary: Denies: Dysuria, Frequency, Incontinence, Hematuria, Retention, Other Symptoms Hematologic: Denies: Bruising, Bleeding Excessively, Petecchia, Purpura, Enlarged Lymph Nodes, Other Hematologic Endocrine: Denies: Polydipsia, Polyphagia, Polyuria, Heat Intolerance, Cold Intolerance, Other Endocrine Sx Musculoskeletal: Denies: Neck Pain, Back Pain, Shoulder Pain, Arm Pain, Hand Pain, Leg Pain, Foot Pain, Joint Pain, Muscle Pain, Spasms, Other Symptoms Neurological: Denies: Weakness, Numbness, Incoordination, Change in speech, Co nfusion, Seizures, Other Symptoms Objective Physical Examination General Exam: Positive: Alert, Cooperative, No Acute Distress, Other (allodynia) Eye Exam: Positive: Conjunctiva & lids normal; Negative: Sclera icteric ENT Exam: Positive: Mucous membr. moist/pink, Other ENT (well healed scar s/p tracheostomy removal) Neck Exam: Positive: Supple Chest Exam: Positive: Clear to auscultation, Normal air movement; Negative: Rales, Rhonchi, Wheezing Heart Exam: Positive: Rate Normal, Regular Rhythm, Normal S1, Normal S2; Negative: Murmurs Abdomen Exam: Positive: Normal bowel sounds, Soft; Negative: Tenderness Skin Exam: Positive: Nl turgor and temperature Neuro Exam: Positive: Normal Speech, Normal Tone, Cranial Nerves 3-12 NL, Other (numbness and tingling in b/l upper extremities upon touch. 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 Pt has normal airway entry with good pulse ox. Will have the pt on cont pulse ox to monitor and ox therapy. Discussed with neurologist, and pt will be on IVIG QD for 5 days. Neuro consult ordered. (2) Paroxysmal atrial fibrillation Status: Acute Problem Text: snius rhythm with regular rate at time of examination. Cont home med Xalreto. On tele monitor. (3) HTN (hypertension) Status: Chronic Problem Text: Cont home BP med. Pt vital roughly stable. Vital signs as scheduled and cont to monitor the pt. On 2g Na diet. (4) Allodynia Status: Chronic Problem Text: PMH of allodynia. Reported diffuse pain in body as laying on bed/pressure. Cont home pain med acetaminophen/codeine PRN; IV morphine 4mg Q4H PRN Plan/VTE VTE Prophylaxis Ordered?: Yes (home med xalreto) VS, I&O, 24H, Fishbone Vital Signs/I&O Vital Signs Date Time Temp Pulse Resp B/P (MAP) Pulse Ox O2 Delivery O2 Flow Rate FiO2 08/14/18 09:45 64 100/62 (75) 08/14/18 06:15 96.6 18 98 3.0 08/13/18 22:10 Room Air I&O- Last 24 Hours up to 6 AM 08/14/18 06:00 Intake Total 600 ml Output Total 450 ml Balance 150 ml Laboratory Data 24H LABS Laboratory Tests 2 08/13/18 17:52: Immature Granulocyte % (Auto) 0.3, White Blood Count 9.2, Red Blood Count 4.68, Hemoglobin 15.7, Hematocrit 45.2, Mean Corpuscular Volume 96.6H, Mean Corpuscular Hemoglobin 33.5H, Mean Corpuscular Hemoglobin Concent 34.7, Red Cell Distribution Width 13.1, Platelet Count 386, Neutrophils (%) (Auto) 61.3, Lymphocytes (%) (Auto) 25.2, Monocytes (%) (Auto) 11.0H, Eosinophils (%) (Auto) 1.5, Basophils (%) (Auto) 0.7, Neutrophils # (Auto) 5.6, Lymphocytes # (Auto) 2.3, Monocytes # (Auto) 1.0H, Eosinophils # (Auto) 0.1, Basophils # (Auto) 0.1, Nucleated Red Blood Cells % (auto) 0.0, Prothrombin Time 14.3, Prothromb Time International Ratio 1.10, Activated Partial Thromboplast Time 39.7H, Anion Gap 6L, Glomerular Filtration Rate > 60.0, Calcium Level 9.1, Aspartate Amino Transf (AST/SGOT) 43H, Alanine Aminotransferase (ALT/SGPT) 58, Alkaline Phosphatase 199H, Total Bilirubin 0.3, Direct Bilirubin < 0.1, Total Creatine Kinase 54, Creatine Kinase MB < 1.0, Creatine Kinase MB Relative Index 1.85, Troponin I < 0.02, Total Protein 9.0H, Albumin 2.6L, Albumin/Globulin Ratio 0.41L, Lipase 146, Thyroid Stimulating Hormone (TSH) 3.540, Free Thyroxine 1.49H 08/14/18 04:46: Nucleated Red Blood Cells % (auto) 0.0, Anion Gap 5L, Glomerular Filtration Rate > 60.0, Calcium Level 9.0, Blood Urea Nitrogen 23H, Creatinine 1.20, Sodium Level 134L, Potassium Level 3.4L, Chloride Level 97L, Carbon Dioxide Level 32 CBC/BMP Laboratory Tests 08/13/18 17:52 Red Blood Count 4.68, Mean Corpuscular Volume 96.6 H, Mean Corpuscular Hemoglobin 33.5 H, Mean Corpuscular Hemoglobin Concent 34.7, Red Cell Distribu tion Width 13.1, Neutrophils (%) (Auto) 61.3, Lymphocytes (%) (Auto) 25.2, Monocytes (%) (Auto) 11.0 H, Eosinophils (%) (Auto) 1.5, Basophils (%) (Auto) 0.7, Neutrophils # (Auto) 5.6, Lymphocytes # (Auto) 2.3, Monocytes # (Auto) 1.0 H, Eosinophils # (Auto) 0.1, Basophils # (Auto) 0.1 08/14/18 04:46 Red Blood Count 4.35, Mean Corpuscular Volume 97.2 H, Mean Corpuscular Hemogl obin 32.9, Mean Corpuscular Hemoglobin Concent 33.8, Red Cell Distribution Width 13.0, Calcium Level 9.0 BIBI COLORADO MD August 14, 2018 12:45
[2018-08-14] MEDS: MORPHINE 4 MG/ML 1ML VIAL/SYRINGE (J2270) IV PRN (17:45)
[2018-08-14] MEDS: LOSARTAN 50 MG TAB PO SCH (21:32)
[2018-08-14] MEDS: AMIODARONE 200 MG TAB (PACERONE) PO SCH (21:33)
[2018-08-15] MEDS: MORPHINE 4 MG/ML 1ML VIAL/SYRINGE (J2270) IV PRN ×4 (00:21→16:35)
[2018-08-15] MEDS: IMMUNE GLOBULIN 10% 40 GM in APPROPRIATE DILUENT 1 EA IV SCH ×2 (02:10→23:23)
[2018-08-15 04:40] VITALS: O2SAT 93
[2018-08-15 06:00] VITALS: BP 128/88
[2018-08-15 06:03] LABS: HEMATOCRIT 38.7 % (42.0-52.0); HEMOGLOBIN 13.4 g/dl (13.5-17.5); MEAN CORPUSCULAR HEMOGLOBIN 32.7 pg (27.0-33.0); MEAN CORPUSCULAR HGB CONC 34.6 g/dl (32.0-36.5); MEAN CORPUSCULAR VOLUME 94.4 fl (80.0-96.0); PLATELET COUNT, AUTOMATED 334 10^3/uL (150-450); WHITE BLOOD COUNT 5.8 10^3/uL (4.0-10.0)
[2018-08-15 06:27] LABS: BLOOD UREA NITROGEN 22 MG/DL (7-18); CALCIUM LEVEL 8.4 MG/DL (8.5-10.1); CARBON DIOXIDE LEVEL 30 MEQ/L (21-32); CHLORIDE LEVEL 99 MEQ/L (98-107); CREATININE FOR GFR 0.95 MG/DL (0.70-1.30); GLOMERULAR FILTRATION RATE > 60.0 (>56); GLUCOSE, FASTING 95 MG/DL (70-100); POTASSIUM SERUM 3.3 MEQ/L (3.5-5.1); SODIUM LEVEL 135 MEQ/L (136-145)
[2018-08-15] MEDS ORDERED: POTASSIUM CHLORIDE 10 MEQ SR TABLET PO ONE (07:45)
[2018-08-15] MEDS: CARVedilol 12.5 MG TAB PO SCH ×2 (08:38→21:08)
[2018-08-15] MEDS: GABAPENTIN 400 MG CAP PO SCH ×2 (08:38→21:07)
[2018-08-15] MEDS: OMEPRAZOLE 20 MG CAP PO SCH (08:38)
[2018-08-15] MEDS: hydroCHLOROthiazide 12.5 MG CAPSULE PO SCH (08:39)
[2018-08-15] MEDS: CHLORTHALIDONE 12.5MG PER 1/2 TABLET PO SCH (08:39)
[2018-08-15] MEDS: THIAMINE 100 MG TAB PO SCH ×2 (08:39→21:07)
[2018-08-15] MEDS: DOCUSATE SODIUM 100 MG CAP PO SCH ×2 (08:39→21:06)
[2018-08-15] MEDS: NICOTINE 14 MG/24 HR TRANSDERMAL TD SCH (08:39)
--- NOTE | 2018-08-15 10:18 | IPNPDOC ---
Subjective Date Seen The patient was seen on 08/15/18. Subjective Chief Complaint/HPI Patient is comfortable, receiving immunoglobulins offers no new complaints at the present time General: Denies: ROS Unobtainable, Chills, Night Sweats, Fatigue, Malaise, Normal Appetite, Other Symptoms Constitutional: Denies: Chills, Fever, Malaise, Night Sweats, Weakness, Fatigue, Weight Loss, Lethargy, Other Eyes: Denies: Pain, Vision change, Conjunctivae inflammation, Eyelid inflammation, Redness, Other ENT: Denies: Head Aches, Ear Pain, Dysphagia, Sinus Congestion, Post Nasal Drip, Sore Throat, Epistaxis, Other Symptoms Skin: Denies: Rash, Lesions, Jaundice, Bruising, Itching, Dry, Breakdown, Nail Changes, Other Pulmonary: Denies: Dyspnea, Cough, Pleuritic Chest Pain, Other Symptoms Cardiovascular: Denies: Chest Pain, Palpitations, Orthopnea, Paroxysmal Noc. Dyspnea, Edema, Lt Headedness, Other Symptoms Gastrointestinal: Denies: Nausea, Vomiting, Abdominal Pain, Diarrhea, Constipation, Melena, Hematochezia, Other Symptoms Genitourinary: Denies: Dysuria, Frequency, Incontinence, Hematuria, Retention, Other Symptoms Hematologic: Denies: Bruising, Bleeding Excessively, Petecchia, Purpura, Enlarged Lymph Nodes, Other Hematologic Endocrine: Denies: Polydipsia, Polyphagia, Polyuria, Heat Intolerance, Cold Intolerance, Other Endocrine Sx Musculoskeletal: Denies: Neck Pain, Back Pain, Shoulder Pain, Arm Pain, Hand Pain, Leg Pain, Foot Pain, Joint Pain, Muscle Pain, Spasms, Other Symptoms Neurological: Denies: Weakness, Numbness, Incoordination, Change in speech, Confusion, Seizures, Other Symptoms Psych: Denies: Mood Normal, Anxiety, Depression, Memory Issues, Thoughts of Self Harm, Anger, Thoughts of Harming Other, Other Psych Objective Physical Examination General Exam: Positive: Alert, Cooperative, No Acute Distress, Other (allodynia) Eye Exam: Positive: Conjunctiva & lids normal; Negative: Sclera icteric ENT Exam: Positive: Mucous membr. moist/pink, Other ENT (well healed scar s/p tracheostomy removal) Neck Exam: Positive: Supple Chest Exam: Positive: Clear to auscultation, Normal air movement; Negative: Rales, Rhonchi, Wheezing Heart Exam: Positive: Rate Normal, Regular Rhythm, Normal S1, Normal S2; Negative: Murmurs Abdomen Exam: Positive: Normal bowel sounds, Soft; Negative: Tenderness Skin Exam: Positive: Nl turgor and temperature Neuro Exam: Positive: Normal Speech, Normal Tone, Cranial Nerves 3-12 NL, Other (numbness and tingling in b/l upper extremities upon touch. 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 Pt has normal airway entry with good pulse ox. Will have the pt on cont pulse ox to monitor and ox therapy. Discussed with neurologist, and pt will be on IVIG QD for 5 days. Neuro consult ordered. Patient is comfortable. His symptom has not progressed about his ankles, tolerating immunoglobulins very well (2) Paroxysmal atrial fibrillation Status: Acute Problem Text: snius rhythm with regular rate at time of examination. Cont home med Xalreto. On tele monitor. (3) HTN (hypertension) Status: Chronic Problem Text: Cont home BP med. Pt vital roughly stable. Vital signs as schedu led and cont to monitor the pt. On 2g Na diet. (4) Allodynia Status: Chronic Problem Text: PMH of allodynia. Reported diffuse pain in body as laying on bed/pressure. Cont home pain med acetaminophen/codeine PRN; IV morphine 4mg Q4H PRN Plan/VTE VTE Prophylaxis Ordered?: Yes (home med xalreto) VS, I&O, 24H, Fishbone Vital Signs/I&O Vital Signs Date Time Temp Pulse Resp B/P (MAP) Pulse Ox O2 Delivery O2 Flow Rate FiO2 08/15/18 08:38 60 128/88 08/15/18 06:41 14 08/15/18 06:00 97.3 94 08/14/18 06:15 3.0 08/13/18 22:10 Room Air I&O- Last 24 Hours up to 6 AM 08/15/18 06:00 Intake Total 1986 ml Output Total 2125 ml Balance -139 ml Laboratory Data 24H LABS Laboratory Tests 2 08/15/18 05:36: Nucleated Red Blood Cells % (auto) 0.0, Anion Gap 6L, Glomerular Filtration Rate > 60.0, Blood Urea Nitrogen 22H, Creatinine 0.95, Sodium Level 135L, Potassium Level 3.3L, Chloride Level 99, Carbon Dioxide Level 30, Calcium Level 8.4L CBC/BMP Laboratory Tests 08/15/18 05:36 Red Blood Count 4.10 L, Mean Corpuscular Volume 94.4, Mean Corpuscular Hemoglobin 32.7, Mean Corpuscular Hemoglobin Concent 34.6, Red Cell Distribution Width 12.8, Calcium Level 8.4 L BIBI COLORADO MD August 15, 2018 10:18
[2018-08-15] MEDS: MOM 30ML SUSPENSION UDC PO PRN (12:25)
--- NOTE | 2018-08-15 12:50 | CR ---
DATE OF CONSULTATION: 08/14/2018 REFERRING PHYSICIAN: Dr. Nicanor Peterson. REASON FOR CONSULTATION: Generalized body pain. HISTORY OF PRESENT ILLNESS: Edi Berg is a 58-year-old man who had Guillain-[place] syndrome in 1997 and was admitted at [facility] in July 2018 with recurrence of similar symptoms when he developed sudden onset, worsening of his arms and legs pain, numbness, tingling sensation. He received 5 days of intravenous immunoglobulins. The patient was discharged home. 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 The patient states that he felt worsening of his pain in his arms and legs. He feels heavy stinging sensation in his arms, legs and feet. Pain in his entire body is 10/10 in intensity. He felt more imbalance. He started using a walker. There was no worsening of his weakness. He came back to [facility] for worsening of his pain, numbness, tingling and imbalance. He denies any shortness of breath, chest pain, palpitations, diarrhea headaches, neck or back pain. He denies dysphagia, dysarthria, diplopia, falls or loss of consciousness. PAST MEDICAL HISTORY: Atrial fibrillation. History of Guillain-[place] syndrome in 1997 with recurrence in 2018. History of gastrointestinal (GI) bleed. Tracheostomy. Colonoscopy. Polypectomy. Cholecystectomy. Cardiac ambulation. HOME MEDICATIONS: - amiodarone 200 mg by mouth nightly - carvedilol 25 mg by mouth twice a day - chlorthalidone 25 mg, 1/2 tablet by mouth daily - gabapentin 800 mg in the morning and 1600 mg by mouth nightly - hydrochlorothiazide 12.5 mg by mouth daily - losartan 50 mg by mouth daily - Prilosec 40 mg by mouth daily - Xarelto 20 mg by mouth daily - thiamine 1 mg by mouth twice a day - Tylenol with Codeine - cyclobenzaprine ALLERGIES: LISINOPRIL. SOCIAL HISTORY: He is a current smoker. He denies illicit drugs. He occasionally drinks alcohol. FAMILY HISTORY: Noncontributory. REVIEW OF SYSTEMS: All systems were reviewed and found to be noncontributory except as mentioned in the history present illness. PHYSICAL EXAMINATION: Temperature 96.3, pulse 67, respiratory 20, blood pressure 108/75, 97% saturation on room air. Heart: Regular rate and rhythm. Lungs: Clear to auscultation. Abdomen: Soft, nontender, nondistended. No pedal edema. No musculoskeletal abnormalities. No rash. No signs of meningeal irritation. The patient is moaning and groaning due to pain when I saw him. The patient is awake, alert, oriented to place, person and time. Normal speech, comprehension and repetition. Extraocular muscles are intact. No facial weakness. tongue and uvula are midline. 5/5 strength in all upper extremities. Deep tendon flexes are absent throughout. He has decreased cold pinprick vibration sensation in arms and legs. Gait is unsteady. He uses a cane and walker for ambulation. ASSESSMENT: 1. 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 2. Generalized body pain secondary to neuropathy. 3. Atrial fibrillation. PLAN: 1. The patient is receiving second course of intravenous immunoglobulin. He had received a course in July 2018. 2. After he finishes his intravenous immunoglobulin, we can start him on amitriptyline 25 mg by mouth nightly and gradually increase it for his neuropathic pain. Cymbalta and nortriptyline can also be considered. 3. Consult cardiology if they can change, amiodarone to another anti-arrhythmic medication for his atrial fibrillation. Amiodarone can also worsen peripheral neuropathy. We had this discussion during his last visit as well. 4. therapy. The patient will continue gabapentin 800 plus 1600 mg daily. 5. Tylenol with Codeine as needed for pain.
[2018-08-15 14:00] VITALS: BP 124/85
[2018-08-15] MEDS: ACETAMINOPHEN TAB 650MG DOSE (2X325MG) PO PRN (16:01)
[2018-08-15] MEDS: RIVAROXABAN 20 MG TAB (XARELTO) PO SCH (17:45)
[2018-08-15] MEDS: LOSARTAN 50 MG TAB PO SCH (21:07)
[2018-08-15] MEDS: AMIODARONE 200 MG TAB (PACERONE) PO SCH (21:07)
[2018-08-15 22:00] VITALS: BP 115/73
[2018-08-16] MEDS: MORPHINE 4 MG/ML 1ML VIAL/SYRINGE (J2270) IV PRN ×4 (00:46→21:27)
[2018-08-16 01:23] VITALS: O2SAT 93
[2018-08-16 06:00] VITALS: BP 120/74
[2018-08-16] MEDS: OMEPRAZOLE 20 MG CAP PO SCH (07:44)
[2018-08-16] MEDS: DOCUSATE SODIUM 100 MG CAP PO SCH ×2 (07:44→21:09)
[2018-08-16] MEDS: GABAPENTIN 400 MG CAP PO SCH ×2 (07:44→21:09)
[2018-08-16] MEDS: hydroCHLOROthiazide 12.5 MG CAPSULE PO SCH (07:44)
[2018-08-16] MEDS: THIAMINE 100 MG TAB PO SCH ×2 (07:44→21:09)
[2018-08-16] MEDS: CARVedilol 12.5 MG TAB PO SCH ×2 (07:44→21:11)
[2018-08-16] MEDS: NICOTINE 14 MG/24 HR TRANSDERMAL TD SCH (07:45)
[2018-08-16] MEDS: CHLORTHALIDONE 12.5MG PER 1/2 TABLET PO SCH (07:45)
[2018-08-16] MEDS: ANALGESIC BALM CRM 120 GM TOP PRN (07:46)
[2018-08-16 08:28] LABS: HEMATOCRIT 40.8 % (42.0-52.0); HEMOGLOBIN 13.7 g/dl (13.5-17.5); MEAN CORPUSCULAR HEMOGLOBIN 32.9 pg (27.0-33.0); MEAN CORPUSCULAR HGB CONC 33.6 g/dl (32.0-36.5); MEAN CORPUSCULAR VOLUME 97.8 fl (80.0-96.0); PLATELET COUNT, AUTOMATED 340 10^3/uL (150-450); RED BLOOD COUNT 4.17 10^6/uL (4.30-6.10); WHITE BLOOD COUNT 5.5 10^3/uL (4.0-10.0)
[2018-08-16 08:56] LABS: BLOOD UREA NITROGEN 21 MG/DL (7-18); CALCIUM LEVEL 8.5 MG/DL (8.5-10.1); CARBON DIOXIDE LEVEL 30 MEQ/L (21-32); CHLORIDE LEVEL 97 MEQ/L (98-107); CREATININE FOR GFR 1.03 MG/DL (0.70-1.30); GLOMERULAR FILTRATION RATE > 60.0 (>56); GLUCOSE, FASTING 82 MG/DL (70-100); POTASSIUM SERUM 3.9 MEQ/L (3.5-5.1); SODIUM LEVEL 133 MEQ/L (136-145)
[2018-08-16] MEDS ORDERED: POTASSIUM CHLORIDE 10 MEQ SR TABLET PO SCH (09:00)
--- NOTE | 2018-08-16 10:11 | IPNPDOC ---
Subjective Date Seen The patient was seen on 08/16/18. Subjective Chief Complaint/HPI Patient is comfortable offers no new complaints at the present time General: Denies: ROS Unobtainable, Chills, Night Sweats, Fatigue, Malaise, Normal Appetite, Other Symptoms Constitutional: Denies: Chills, Fever, Malaise, Night Sweats, Weakness, Fatigue, Weight Loss, Lethargy, Other Eyes: Denies: Pain, Vision change, Conjunctivae inflammation, Eyelid inflammation, Redness, Other ENT: Denies: Head Aches, Ear Pain, Dysphagia, Sinus Congestion, Post Nasal Drip, Sore Throat, Epistaxis, Other Symptoms Skin: Denies: Rash, Lesions, Jaundice, Bruising, Itching, Dry, Breakdown, Nail Changes, Other Pulmonary: Denies: Dyspnea, Cough, Pleuritic Chest Pain, Other Symptoms Cardiovascular: Denies: Chest Pain, Palpitations, Orthopnea, Paroxysmal Noc. Dyspnea, Edema, Lt Headedness, Other Symptoms Gastrointestinal: Denies: Nausea, Vomiting, Abdominal Pain, Diarrhea, Constip ation, Melena, Hematochezia, Other Symptoms Genitourinary: Denies: Dysuria, Frequency, Incontinence, Hematuria, Retention, Other Symptoms Hematologic: Denies: Bruising, Bleeding Excessively, Petecchia, Purpura, Enlarged Lymph Nodes, Other Hematologic Endocrine: Denies: Polydipsia, Polyphagia, Polyuria, Heat Intolerance, Cold Intolerance, Other Endocrine Sx Musculoskeletal: Denies: Neck Pain, Back Pain, Shoulder Pain, Arm Pain, Hand Pain, Leg Pain, Foot Pain, Joint Pain, Muscle Pain, Spasms, Other Symptoms Neurological: Denies: Weakness, Numbness, Incoordination, Change in speech, Con fusion, Seizures, Other Symptoms Psych: Denies: Mood Normal, Anxiety, Depression, Memory Issues, Thoughts of Self Harm, Anger, Thoughts of Harming Other, Other Psych Objective Physical Examination General Exam: Positive: Alert, Cooperative, No Acute Distress, Other (allodynia) Eye Exam: Positive: Conjunctiva & lids normal; Negative: Sclera icteric ENT Exam: Positive: Mucous membr. moist/pink, Other ENT (well healed scar s/p tracheostomy removal) Neck Exam: Positive: Supple Chest Exam: Positive: Clear to auscultation, Normal air movement; Negative: Rales, Rhonchi, Wheezing Heart Exam: Positive: Rate Normal, Regular Rhythm, Normal S1, Normal S2; Negative: Murmurs Abdomen Exam: Positive: Normal bowel sounds, Soft; Negative: Tenderness Skin Exam: Positive: Nl turgor and temperature Neuro Exam: Positive: Normal Speech, Normal Tone, Cranial Nerves 3-12 NL, Other (numbness and tingling in b/l upper extremities upon touch. 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 Pt has normal airway entry with good pulse ox. Will have the pt on cont pulse ox to monitor and ox therapy. Discussed with neurologist, and pt will be on IVIG QD for 5 days. Neuro consult ordered. Patient is comfortable. His symptom has not progressed about his ankles, tolerating immunoglobulins very well Today is day #4 following IVIG will finish 5 days of course and then discharge him home DC telemetry and continuous pulse ox monitor (2) Paroxysmal atrial fibrillation Status: Acute Problem Text: snius rhythm with regular rate at time of examination. Cont home med Xalreto. On tele monitor. (3) HTN (hypertension) Status: Chronic Problem Text: Cont home BP med. Pt vital roughly stable. Vital signs as scheduled and cont to monitor the pt. On 2g Na diet. (4) Allodynia Status: Chronic Problem Text: PMH of allodynia. Reported diffuse pain in body as laying on bed/pressure. Cont home pain med acetaminophen/codeine PRN; IV morphine 4mg Q4H PRN Plan/VTE VTE Prophylaxis Ordered?: Yes (home med xalreto) VS, I&O, 24H, Fishbone Vital Signs/I&O Vital Signs Date Time Temp Pulse Resp B/P (MAP) Pulse Ox O2 Delivery O2 Flow Rate FiO2 08/16/18 07:55 16 08/16/18 07:44 60 120/74 08/16/18 06:00 97.2 90 08/16/18 01:23 Room Air 08/14/18 06:15 3.0 I&O- Last 24 Hours up to 6 AM 08/16/18 06:00 Intake Total 1140 ml Output Total 1250 ml Balance -110 ml Laboratory Data 24H LABS Laboratory Tests 2 08/16/18 07:59: Nucleated Red Blood Cells % (auto) 0.0, Anion Gap 6L, Glomerular Filtration Rate > 60.0, Blood Urea Nitrogen 21H, Creatinine 1.03, Sodium Level 133L, Potassium Level 3.9, Chloride Level 97L, Carbon Dioxide Level 30, Calcium Level 8.5 CBC/BMP Laboratory Tests 08/16/18 07:59 Red Blood Count 4.17 L, Mean Corpuscular Volume 97.8 H, Mean Corpuscular Hemoglobin 32.9, Mean Corpuscular Hemoglobin Concent 33.6, Red Cell Distribution Width 13.2, Calcium Level 8.5 BIBI COLORADO MD August 16, 2018 10:11
[2018-08-16] MEDS: MOM 30ML SUSPENSION UDC PO PRN (10:27)
[2018-08-16 14:00] VITALS: BP 130/91
[2018-08-16] MEDS: RIVAROXABAN 20 MG TAB (XARELTO) PO SCH (17:23)
[2018-08-16] MEDS: LOSARTAN 50 MG TAB PO SCH (21:10)
[2018-08-16] MEDS: AMIODARONE 200 MG TAB (PACERONE) PO SCH (21:10)
[2018-08-16 22:00] VITALS: BP 112/57
[2018-08-16] MEDS: IMMUNE GLOBULIN 10% 40 GM in APPROPRIATE DILUENT 1 EA IV SCH (22:56)
[2018-08-17] MEDS: IMMUNE GLOBULIN 10% 40 GM in APPROPRIATE DILUENT 1 EA IV SCH ×3 (01:25→23:27)
[2018-08-17] MEDS: MORPHINE 4 MG/ML 1ML VIAL/SYRINGE (J2270) IV PRN ×4 (01:31→20:47)
[2018-08-17 05:25] LABS: HEMOGLOBIN 13.3 g/dl (13.5-17.5); MEAN CORPUSCULAR HEMOGLOBIN 32.6 pg (27.0-33.0); MEAN CORPUSCULAR HGB CONC 34.1 g/dl (32.0-36.5); MEAN CORPUSCULAR VOLUME 95.6 fl (80.0-96.0); PLATELET COUNT, AUTOMATED 323 10^3/uL (150-450); RED BLOOD COUNT 4.08 10^6/uL (4.30-6.10); WHITE BLOOD COUNT 5.1 10^3/uL (4.0-10.0)
[2018-08-17 05:47] LABS: ALBUMIN 2.2 GM/DL (3.2-5.2); ALT/SGPT 106 U/L (12-78); BILIRUBIN,TOTAL 0.3 MG/DL (0.2-1.0); BLOOD UREA NITROGEN 24 MG/DL (7-18); CALCIUM LEVEL 8.5 MG/DL (8.5-10.1); CARBON DIOXIDE LEVEL 29 MEQ/L (21-32); CHLORIDE LEVEL 98 MEQ/L (98-107); CREATININE FOR GFR 1.07 MG/DL (0.70-1.30); GLOMERULAR FILTRATION RATE > 60.0 (>56); GLUCOSE, FASTING 92 MG/DL (70-100); POTASSIUM SERUM 3.5 MEQ/L (3.5-5.1); SODIUM LEVEL 131 MEQ/L (136-145); TOTAL PROTEIN 10.1 GM/DL (6.4-8.2)
[2018-08-17 06:00] VITALS: BP 120/85
[2018-08-17] MEDS: ANALGESIC BALM CRM 120 GM TOP PRN (06:55)
[2018-08-17] MEDS: THIAMINE 100 MG TAB PO SCH ×2 (09:02→20:21)
[2018-08-17] MEDS: DOCUSATE SODIUM 100 MG CAP PO SCH ×3 (09:02→20:24)
[2018-08-17] MEDS: OMEPRAZOLE 20 MG CAP PO SCH (09:03)
[2018-08-17] MEDS: GABAPENTIN 400 MG CAP PO SCH ×2 (09:03→20:21)
[2018-08-17] MEDS: CARVedilol 12.5 MG TAB PO SCH ×2 (09:05→20:20)
[2018-08-17] MEDS: PREGABALIN 50 MG CAP (LYRICA) PO SCH ×3 (09:06→20:20)
[2018-08-17] MEDS: CHLORTHALIDONE 12.5MG PER 1/2 TABLET PO SCH (09:06)
[2018-08-17] MEDS: hydroCHLOROthiazide 12.5 MG CAPSULE PO SCH (09:06)
[2018-08-17] MEDS: NICOTINE 14 MG/24 HR TRANSDERMAL TD SCH (09:07)
[2018-08-17] MEDS: MOM 30ML SUSPENSION UDC PO PRN (09:29)
--- NOTE | 2018-08-17 13:20 | IPNPDOC ---
Subjective Date Seen The patient was seen on 08/17/18. Subjective Chief Complaint/HPI Patient complaining in complaining of pain in both lower extremities and right shoulder pain is needlelike in nature with a burning character General: Denies: ROS Unobtainable, Chills, Night Sweats, Fatigue, Malaise, Normal Appetite, Other Symptoms Constitutional: Denies: Chills, Fever, Malaise, Night Sweats, Weakness, Fatigue, Weight Loss, Lethargy, Other Eyes: Denies: Pain, Vision change, Conjunctivae inflammation, Eyelid inflammation, Redness, Other ENT: Denies: Head Aches, Ear Pain, Dysphagia, Sinus Congestion, Post Nasal Drip, Sore Throat, Epistaxis, Other Symptoms Skin: Denies: Rash, Lesions, Jaundice, Bruising, Itching, Dry, Breakdown, Nail Changes, Other Pulmonary: Denies: Dyspnea, Cough, Pleuritic Chest Pain, Other Symptoms Cardiovascular: Denies: Chest Pain, Palpitations, Orthopnea, Paroxysmal Noc. Dyspnea, Edema, Lt Headedness, Other Symptoms Gastrointestinal: Denies: Nausea, Vomiting, Abdominal Pain, Diarrhea, Constipation, Melena, Hematochezia, Other Symptoms Genitourinary: Denies: Dysuria, Frequency, Incontinence, Hematuria, Retention, Other Symptoms Hematologic: Denies: Bruising, Bleeding Excessively, Petecchia, Purpura, Enlarged Lymph Nodes, Other Hematologic Endocrine: Denies: Polydipsia, Polyphagia, Polyuria, Heat Intolerance, Cold Intolerance, Other Endocrine Sx Musculoskeletal: Denies: Neck Pain, Back Pain, Shoulder Pain, Arm Pain, Hand Pa in, Leg Pain, Foot Pain, Joint Pain, Muscle Pain, Spasms, Other Symptoms Neurological: Denies: Weakness, Numbness, Incoordination, Change in speech, Confusion, Seizures, Other Symptoms Objective Physical Examination General Exam: Positive: Alert, Cooperative, No Acute Distress, Other (allodynia) Eye Exam: Positive: Conjunctiva & lids normal; Negative: Sclera icteric ENT Exam: Positive: Mucous membr. moist/pink, Other ENT (well healed scar s/p tracheostomy removal) Neck Exam: Positive: Supple Chest Exam: Positive: Clear to auscultation, Normal air movement; Negative: Rales, Rhonchi, Wheezing Heart Exam: Positive: Rate Normal, Regular Rhythm, Normal S1, Normal S2; Negative: Murmurs Abdomen Exam: Positive: Normal bowel sounds, Soft; Negative: Tenderness Skin Exam: Positive: Nl turgor and temperature Neuro Exam: Positive: Normal Speech, Normal Tone, Cranial Nerves 3-12 NL, Other (numbness and tingling in b/l upper extremities upon touch. 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 Pt has normal airway entry with good pulse ox. Will have the pt on cont pulse ox to monitor and ox therapy. Discussed with neurologist, and pt will be on IVIG QD for 5 days. Neuro consult ordered. Patient is comfortable. His symptom has not progressed about his ankles, tolerating immunoglobulins very well Today is day #5 following IVIG will finish 5 days of course and then discharge him home DC telemetry and continuous pulse ox monitor [place], 50 mg by mouth 3 times a day for neuropathic pain Possible DC name if cleared by physical therapy (2) Paroxysmal atrial fibrillation Status: Acute Problem Text: snius rhythm with regular rate at time of examination. Cont home med Xalreto. On tele monitor. (3) HTN (hypertension) Status: Chronic Problem Text: Cont home BP med. Pt vital roughly stable. Vital signs as scheduled and cont to monitor the pt. On 2g Na diet. (4) Allodynia Status: Chronic Problem Text: PMH of allodynia. Reported diffuse pain in body as laying on bed/pressure. Cont home pain med acetaminophen/codeine PRN; IV morphine 4mg Q4H PRN Plan/VTE VTE Prophylaxis Ordered?: Yes (home med xalreto) VS, I&O, 24H, Fishbone Vital Signs/I&O Vital Signs Date Time Temp Pulse Resp B/P (MAP) Pulse Ox O2 Delivery O2 Flow Rate FiO2 08/17/18 12:45 18 08/17/18 09:05 60 91/63 08/17/18 06:00 97.9 92 08/16/18 01:23 Room Air 08/14/18 06:15 3.0 I&O- Last 24 Hours up to 6 AM 08/17/18 06:00 Intake Total 800 ml Output Total 650 ml Balance 150 ml Laboratory Data 24H LABS Laboratory Tests 2 08/17/18 05:09: Nucleated Red Blood Cells % (auto) 0.0, Anion Gap 4L, Glomerular Filtration Rate > 60.0, Blood Urea Nitrogen 24H, Creatinine 1.07, Sodium Level 131L, Potassium Level 3.5, Chloride Level 98, Carbon Dioxide Level 29, Calcium Level 8.5, Aspartate Amino Transf (AST/SGOT) 74H, Alanine Aminotransferase (ALT/SGPT) 106H, Alkaline Phosphatase 201H, Total Bilirubin 0.3, Total Protein 10.1H, Albumin 2.2L, Albumin/Globulin Ratio 0.28L CBC/BMP Laboratory Tests 08/17/18 05:09 Red Blood Count 4.08 L, Mean Corpuscular Volume 95.6, Mean Corpuscular Hemoglobin 32.6, Mean Corpuscular Hemoglobin Concent 34.1, Red Cell Distribution Width 13.2, Calcium Level 8.5, Aspartate Amino Transf (AST/SGOT) 74 H, Alanine Aminotransferase (ALT/SGPT) 106 H, Alkaline Phosphatase 201 H, Total Bilirubin 0.3, Total Protein 10.1 H, Albumin 2.2 L BIBI COLORADO MD August 17, 2018 13:20
[2018-08-17 14:00] VITALS: BP 139/92
[2018-08-17] MEDS: RIVAROXABAN 20 MG TAB (XARELTO) PO SCH (17:29)
[2018-08-17] MEDS: AMIODARONE 200 MG TAB (PACERONE) PO SCH (20:21)
[2018-08-17] MEDS: LOSARTAN 50 MG TAB PO SCH (20:21)
[2018-08-17 22:00] VITALS: BP 130/86
[2018-08-18] MEDS: MORPHINE 4 MG/ML 1ML VIAL/SYRINGE (J2270) IV PRN ×3 (01:17→20:55)
[2018-08-18 06:00] VITALS: BP 98/68
[2018-08-18 06:04] LABS: HEMATOCRIT 38.3 % (42.0-52.0); HEMOGLOBIN 13.2 g/dl (13.5-17.5); MEAN CORPUSCULAR HEMOGLOBIN 33.3 pg (27.0-33.0); MEAN CORPUSCULAR HGB CONC 34.5 g/dl (32.0-36.5); MEAN CORPUSCULAR VOLUME 96.7 fl (80.0-96.0); PLATELET COUNT, AUTOMATED 316 10^3/uL (150-450); RED BLOOD COUNT 3.96 10^6/uL (4.30-6.10)
[2018-08-18 06:23] LABS: BLOOD UREA NITROGEN 27 MG/DL (7-18); CARBON DIOXIDE LEVEL 28 MEQ/L (21-32); CHLORIDE LEVEL 98 MEQ/L (98-107); CREATININE FOR GFR 1.01 MG/DL (0.70-1.30); GLOMERULAR FILTRATION RATE > 60.0 (>56); GLUCOSE, FASTING 87 MG/DL (70-100); POTASSIUM SERUM 3.3 MEQ/L (3.5-5.1); SODIUM LEVEL 133 MEQ/L (136-145)
[2018-08-18] MEDS: NICOTINE 14 MG/24 HR TRANSDERMAL TD SCH (08:08)
[2018-08-18] MEDS: CHLORTHALIDONE 12.5MG PER 1/2 TABLET PO SCH (08:08)
[2018-08-18] MEDS: PREGABALIN 50 MG CAP (LYRICA) PO SCH ×3 (08:08→20:54)
[2018-08-18] MEDS: GABAPENTIN 400 MG CAP PO SCH ×2 (08:09→20:55)
[2018-08-18] MEDS: THIAMINE 100 MG TAB PO SCH ×2 (08:09→20:54)
[2018-08-18] MEDS: DOCUSATE SODIUM 100 MG CAP PO SCH ×2 (08:09→20:54)
[2018-08-18] MEDS: hydroCHLOROthiazide 12.5 MG CAPSULE PO SCH (08:09)
[2018-08-18] MEDS: OMEPRAZOLE 20 MG CAP PO SCH (08:09)
[2018-08-18] MEDS: CARVedilol 12.5 MG TAB PO SCH ×2 (08:10→20:54)
[2018-08-18] MEDS ORDERED: POTASSIUM CHLORIDE 10 MEQ SR TABLET PO ONE (09:00)
--- NOTE | 2018-08-18 12:36 | IPNPDOC ---
Subjective Date Seen The patient was seen on 08/18/18. Subjective Chief Complaint/HPI Patient feeling better today. Had a large BM last night and his stomach discomfort has resolved General: Denies: ROS Unobtainable, Chills, Night Sweats, Fatigue, Malaise, Normal Appetite, Other Symptoms Constitutional: Denies: Chills, Fever, Malaise, Night Sweats, Weakness, Fatigue, Weight Loss, Lethargy, Other Eyes: Denies: Pain, Vision change, Conjunctivae inflammation, Eyelid inflammation, Redness, Other ENT: Denies: Head Aches, Ear Pain, Dysphagia, Sinus Congestion, Post Nasal Drip, Sore Throat, Epistaxis, Other Symptoms Skin: Denies: Rash, Lesions, Jaundice, Bruising, Itching, Dry, Breakdown, Nail Changes, Other Pulmonary: Denies: Dyspnea, Cough, Pleuritic Chest Pain, Other Symptoms Cardiovascular: Denies: Chest Pain, Palpitations, Orthopnea, Paroxysmal Noc. Dyspnea, Edema, Lt Headedness, Other Symptoms Gastrointestinal: Denies: Nausea, Vomiting, Abdominal Pain, Diarrhea, Constipation, Melena, Hematochezia, Other Symptoms Genitourinary: Denies: Dysuria, Frequency, Incontinence, Hematuria, Retention, Other Symptoms Hematologic: Denies: Bruising, Bleeding Excessively, Petecchia, Purpura, Enlarged Lymph Nodes, Other Hematologic Endocrine: Denies: Polydipsia, Polyphagia, Polyuria, Heat Intolerance, Cold Intolerance, Other Endocrine Sx Musculoskeletal: Denies: Neck Pain, Back Pain, Shoulder Pain, Arm Pain, Hand Pain, Leg Pain, Foot Pain, Joint Pain, Muscle Pain, Spasms, Other Symptoms Neurological: Denies: Weakness, Numbness, Incoordination, Change in speech, Confusion, Seizures, Other Symptoms Psych: Denies: Mood Normal, Anxiety, Depression, Memory Issues, Thoughts of Self Harm, Anger, Thoughts of Harming Other, Other Psych Objective Physical Examination General Exam: Positive: Alert, Cooperative, No Acute Distress, Other (allodynia) Eye Exam: Positive: Conjunctiva & lids normal; Negative: Sclera icteric ENT Exam: Positive: Mucous membr. moist/pink, Other ENT (well healed scar s/p tracheostomy removal) Neck Exam: Positive: Supple Chest Exam: Positive: Clear to auscultation, Normal air movement; Negative: Rales, Rhonchi, Wheezing Heart Exam: Positive: Rate Normal, Regular Rhythm, Normal S1, Normal S2; Negative: Murmurs Abdomen Exam: Positive: Normal bowel sounds, Soft; Negative: Tenderness Skin Exam: Positive: Nl turgor and temperature Neuro Exam: Positive: Normal Speech, Normal Tone, Cranial Nerves 3-12 NL, Other (numbness and tingling in b/l upper extremities upon touch. 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 Pt has normal airway entry with good pulse ox. Will have the pt on cont pulse ox to monitor and ox therapy. Discussed with neurologist, and pt will be on IVIG QD for 5 days. Neuro consult ordered. Patient is comfortable. His symptom has not progressed about his ankles, tolera ting immunoglobulins very well Today is day #5 following IVIG will finish 5 days of course and then discharge DC telemetry and continuous pulse ox monitor , Lyrica 50 mg by mouth 3 times a day for neuropathic pain Patient possibly will be discharged to rehabilitation facility for short-term rehabilitation Continue present care. In the meantime (2) Paroxysmal atrial fibrillation Status: Acute Problem Text: snius rhythm with regular rate at time of examination. Cont home med Xalreto. On tele monitor. (3) HTN (hypertension) Status: Chronic Problem Text: Cont home BP med. Pt vital roughly stable. Vital signs as scheduled and cont to monitor the pt. On 2g Na diet. (4) Allodynia Status: Chronic Problem Text: PMH of allodynia. Reported diffuse pain in body as laying on bed/pressure. Cont home pain med acetaminophen/codeine PRN; IV morphine 4mg Q4H PRN (5) Hypokalemia Status: Acute Problem Text: Potassium supplement given Repeat potassium level in a.m. Plan/VTE VTE Prophylaxis Ordered?: Yes (home med xalreto) VS, I&O, 24H, Fishbone Vital Signs/I&O Vital Signs Date Time Temp Pulse Resp B/P (MAP) Pulse Ox O2 Delivery O2 Flow Rate FiO2 08/18/18 08:10 58 98/68 08/18/18 07:40 18 08/18/18 06:00 97.0 95 08/16/18 01:23 Room Air 08/14/18 06:15 3.0 I&O- Last 24 Hours up to 6 AM 08/18/18 05:59 Intake Total 1450 ml Output Total 600 ml Balance 850 ml Laboratory Data 24H LABS Laboratory Tests 2 08/18/18 05:44: Nucleated Red Blood Cells % (auto) 0.0, Anion Gap 7L, Glomerular Filtration Rate > 60.0, Blood Urea Nitrogen 27H, Creatinine 1.01, Sodium Level 133L, Potassium Level 3.3L, Chloride Level 98, Carbon Dioxide Level 28, Calcium Level 8.0L CBC/BMP Laboratory Tests 08/18/18 05:44 Red Blood Count 3.96 L, Mean Corpuscular Volume 96.7 H, Mean Corpuscular Hemo globin 33.3 H, Mean Corpuscular Hemoglobin Concent 34.5, Red Cell Distribution Width 13.2, Calcium Level 8.0 L BIBI [place]ORAD[place] MD August 18, 2018 12:36
[2018-08-18 14:00] VITALS: BP 128/86
[2018-08-18] MEDS: RIVAROXABAN 20 MG TAB (XARELTO) PO SCH (17:01)
[2018-08-18] MEDS: AMIODARONE 200 MG TAB (PACERONE) PO SCH (20:54)
[2018-08-18] MEDS: LOSARTAN 50 MG TAB PO SCH (20:54)
[2018-08-18 22:00] VITALS: BP 131/96
[2018-08-19] MEDS: MORPHINE 4 MG/ML 1ML VIAL/SYRINGE (J2270) IV PRN ×2 (03:15→10:14)
[2018-08-19] MEDS: ACETAMINOPHEN TAB 650MG DOSE (2X325MG) PO PRN (04:52)
[2018-08-19 06:00] VITALS: BP 107/72
[2018-08-19 06:42] LABS: HEMATOCRIT 40.8 % (42.0-52.0); MEAN CORPUSCULAR HEMOGLOBIN 32.9 pg (27.0-33.0); MEAN CORPUSCULAR HGB CONC 34.3 g/dl (32.0-36.5); PLATELET COUNT, AUTOMATED 300 10^3/uL (150-450); RED BLOOD COUNT 4.25 10^6/uL (4.30-6.10); WHITE BLOOD COUNT 4.7 10^3/uL (4.0-10.0)
[2018-08-19 07:01] LABS: BLOOD UREA NITROGEN 28 MG/DL (7-18); CALCIUM LEVEL 8.4 MG/DL (8.5-10.1); CARBON DIOXIDE LEVEL 27 MEQ/L (21-32); CHLORIDE LEVEL 99 MEQ/L (98-107); CREATININE FOR GFR 1.09 MG/DL (0.70-1.30); GLOMERULAR FILTRATION RATE > 60.0 (>56); GLUCOSE, FASTING 93 MG/DL (70-100); POTASSIUM SERUM 3.2 MEQ/L (3.5-5.1); SODIUM LEVEL 132 MEQ/L (136-145)
[2018-08-19] MEDS ORDERED: POTASSIUM CHLORIDE 10 MEQ SR TABLET PO ONE (09:00)
[2018-08-19] MEDS: CHLORTHALIDONE 12.5MG PER 1/2 TABLET PO SCH (10:08)
[2018-08-19] MEDS: PREGABALIN 50 MG CAP (LYRICA) PO SCH (10:08)
[2018-08-19] MEDS: DOCUSATE SODIUM 100 MG CAP PO SCH (10:08)
[2018-08-19] MEDS: GABAPENTIN 400 MG CAP PO SCH (10:08)
[2018-08-19 10:12] VITALS: BP 115/78
[2018-08-19] MEDS: hydroCHLOROthiazide 12.5 MG CAPSULE PO SCH (10:12)
[2018-08-19] MEDS: OMEPRAZOLE 20 MG CAP PO SCH (10:12)
[2018-08-19] MEDS: THIAMINE 100 MG TAB PO SCH (10:12)
[2018-08-19] MEDS: CARVedilol 12.5 MG TAB PO SCH (10:12)
[2018-08-19] MEDS: MOM 30ML SUSPENSION UDC PO PRN (10:13)
[2018-08-19] MEDS: NICOTINE 14 MG/24 HR TRANSDERMAL TD SCH (10:13)
[2018-08-19] MEDS ORDERED: TYLETAB14 PO (13:48)
[2018-08-19 14:00] VITALS: BP 121/77
--- NOTE | 2018-08-19 14:00 | DS.PDOC ---
Discharge Summary General Date of Admission August 13, 2018 at 20:38 Date of Discharge 08/19/18 Attending Physician: BIBI COLORADO MD Discharge Summary PROCEDURES PERFORMED DURING STAY: None. ADMITTING DIAGNOSES: 1. Guillain-Carlin syndrome. DISCHARGE DIAGNOSES: 1. Guillain-Carlin syndrome. COMPLICATIONS/CHIEF COMPLAINT: Guillain [place] Syndrome. HISTORY OF PRESENT ILLNESS: . HOSPITAL COURSE: Patient was admitted with Guillain-Carlin, possible recurrence. Patient was seen by neurology and started on immunoglobulin therapy. Patient received immunoglobulin for 5 days. He still complaining of a lot of pain in his both lower extremities. Hence, he was started on pain management with OxyContin and morphine. Did not have any progression of his numbness in his leg, which was present in his lower extremities and he is asymptomatic and he will be discharged home. Has been cleared by physical therapy for discharge today. DISCHARGE MEDICATIONS: Please see below. ALLERGIES: Please see below. PHYSICAL EXAMINATION ON DISCHARGE: VITAL SIGNS: Please see below. GENERAL: Within normal limit HEENT:. PERRLA NECK:, Supple, no JVD CARDIOVASCULAR EXAMINATION:. S1, S2, regular RESPIRATORY EXAMINATION:, Clear to A&P ABDOMINAL EXAMINATION:. Soft, nontender, bowel sounds present EXTREMITIES:. No clubbing, cyanosis, edema SKIN:. Normal NEUROLOGICAL EXAMINATION:, Normal PSYCHIATRIC EXAMINATION:, Normal LABORATORY DATA: Please see below. IMAGING: As per EMR PROGNOSIS: Good ACTIVITY: As tolerated. DIET: As tolerated DISCHARGE PLAN: Follow up with neurologist in 1 week DISPOSITION: . Home DISCHARGE INSTRUCTIONS: 1. As above. ITEMS TO FOLLOWUP ON ON OUTPATIENT: 1. As above . DISCHARGE CONDITION: Stable. TIME SPENT ON DISCHARGE: 40 minutes. [facility] REFRENCE # [id number] Vital Signs/I&Os Vital Signs Date Time Temp Pulse Resp B/P (MAP) Pulse Ox O2 Delivery O2 Flow Rate FiO2 08/19/18 10:24 16 08/19/18 10:12 71 115/78 08/19/18 06:00 97.1 96 08/16/18 01:23 Room Air 08/14/18 06:15 3.0 I&O- Last 24 Hours up to 6 AM 08/19/18 06:00 Intake Total 2070 ml Output Total 1000 ml Balance 1070 ml Laboratory Data Labs 24H Laboratory Tests 2 08/19/18 06:10: Nucleated Red Blood Cells % (auto) 0.0, Anion Gap 6L, Glomerular Filtration Rate > 60.0, Blood Urea Nitrogen 28H, Creatinine 1.09, Sodium Level 132L, Potassium Level 3.2L, Chloride Level 99, Carbon Dioxide Level 27, Calcium Level 8.4L CBC/BMP Laboratory Tests 08/19/18 06:10 Red Blood Count 4.25 L, Mean Corpuscular Volume 96.0, Mean Corpuscular Hemoglobin 32.9, Mean Corpuscular Hemoglobin Concent 34.3, Red Cell Distribution Width 13.2, Calcium Level 8.4 L Discharge Medications Scheduled Amiodarone HCl (Amiodarone HCl) 200 Mg Tab, 200 MG PO QHS, (Reported) Carvedilol (Carvedilol) 25 Mg Tab, 25 MG PO BID, (Reported) Chlorthalidone (Chlorthalidone) 25 Mg Tablet, 12.5 MG PO DAILY, (Reported) Gabapentin (Gabapentin) 800 Mg Tablet, 800 MG PO DAILY, (Reported) Gabapentin (Gabapentin) 800 Mg Tablet, 1,600 MG PO QHS, (Reported) Hydrochlorothiazide (Hydrochlorothiazide) 12.5 Mg Capsule, 12.5 MG PO DAILY, (Re ported) Losartan Potassium (Losartan Potassium) 50 Mg Tablet, 50 MG PO QHS, (Reported) Omeprazole (Omeprazole) 40 Mg Capsule.dr, 40 MG PO DAILY, (Reported) Rivaroxaban (Xarelto) 20 Mg Tablet, 20 MG PO QHS, (Reported) Thiamine HCl (Vitamin B-1) 100 Mg Tablet, 100 MG PO BID, (Reported) Scheduled PRN Acetaminophen with Codeine (Tylenol with Codeine #3 Tablet) 1 Each Tablet, 1 TAB PO BIDP PRN for PAIN Cyclobenzaprine HCl (Cyclobenzaprine HCl) 10 Mg Tab, 10 MG PO TID PRN for SPASMS, (Reported) Allergies Coded Allergies: lisinopril (Verified Adverse Reaction, Intermediate, INCREASES POTASSIUM LEVELS, 08/13/18) BIBI COLORADO MD August 19, 2018 14:00
== END 2018-08-19 16:08 | disposition home or self-care (01) | DRG 96 ==
LOC: M ED 14:13 → M ED INP 20:38 → M MSPAV 22:11
PROVIDERS: ADMIT Internal Medicine; ATTEND Internal Medicine
DX: G61.0 Guillain-Barre syndrome (principal); Z79.899 Other long term (current) drug therapy; Z88.8 Allergy status to other drugs, medicaments and biological substances; I48.0 Paroxysmal atrial fibrillation; K21.9 Gastro-esophageal reflux disease without esophagitis; F17.200 Nicotine dependence, unspecified, uncomplicated; G89.29 Other chronic pain; G62.9 Polyneuropathy, unspecified; I10 Essential (primary) hypertension

== ENCOUNTER 2018-09-16 11:41 | Inpatient (IN) | payer MEDICARE ==
[~2018-09-16] VITALS: Ht 172.7 cm; Wt 89.2 kg
[~2018-09-16 11:41] MED LIST changes: +ACET1TAB16 PO; +AMIT50TA PO; +B-1100TA2 PO; +FOLI1TAB11 PO; +HYDR-3713 PO; +LOSA50TA88 PO; +METH2.5T48 PO; +PRED20TA PO
[2018-09-16 14:40] VITALS: BP 128/75
[2018-09-16] MEDS: RIVAROXABAN 20 MG TAB (XARELTO) PO SCH (17:21)
[2018-09-16 20:00] VITALS: BP 127/80
[2018-09-16] MEDS: GABAPENTIN 400 MG CAP PO SCH (20:03)
[2018-09-16] MEDS: LOSARTAN 25 MG TAB PO SCH (20:04)
[2018-09-16] MEDS: DOCUSATE SODIUM 100 MG CAP PO SCH (20:04)
[2018-09-16] MEDS: SENNA 8.6 MG TAB (SENOKOT) PO SCH (20:04)
[2018-09-16] MEDS: AMITRIPTYLINE 50 MG TAB PO SCH (20:04)
[2018-09-16] MEDS: CARVedilol 12.5 MG TAB PO SCH (20:05)
[2018-09-16] MEDS: NORCO, ANEXSIA 5/325MG TABLET (HYDROcodone/ACETAMINOPHEN) PO PRN (20:05)
[2018-09-16] MEDS: IPRATROPIUM 0.5MG/ALBUTEROL 2.5MG INH SOL UD 3ML (DUONEB)(J7620) NEB SCH (20:14)
[2018-09-17 06:00] VITALS: BP 105/68
[2018-09-17 06:20] LABS: HEMATOCRIT 38.8 % (42.0-52.0); HEMOGLOBIN 13.4 g/dl (13.5-17.5); LYMPH # 0.8 10^3/uL (1.5-4.5); LYMPH % 8.6 % (24.0-44.0); MEAN CORPUSCULAR HGB CONC 34.5 g/dl (32.0-36.5); MEAN CORPUSCULAR VOLUME 95.6 fl (80.0-96.0); MONO # 0.8 10^3/uL (0.0-0.8); MONO % 8.7 % (0.0-5.0); NEUTROPHILS # 7.6 10^3/uL (1.8-7.7); NEUTROPHILS % 82.1 % (36.0-66.0); PLATELET COUNT, AUTOMATED 371 10^3/uL (150-450); RED BLOOD COUNT 4.06 10^6/uL (4.30-6.10); WHITE BLOOD COUNT 9.3 10^3/uL (4.0-10.0)
[2018-09-17 06:44] LABS: ALBUMIN 2.3 GM/DL (3.2-5.2); ALT/SGPT 28 U/L (12-78); BILIRUBIN,TOTAL 0.3 MG/DL (0.2-1.0); BLOOD UREA NITROGEN 34 MG/DL (7-18); CALCIUM LEVEL 8.6 MG/DL (8.5-10.1); CARBON DIOXIDE LEVEL 27 MEQ/L (21-32); CHLORIDE LEVEL 103 MEQ/L (98-107); CREATININE FOR GFR 1.03 MG/DL (0.70-1.30); GLOMERULAR FILTRATION RATE > 60.0 (>56); GLUCOSE, FASTING 111 MG/DL (70-100); POTASSIUM SERUM 3.7 MEQ/L (3.5-5.1); SODIUM LEVEL 140 MEQ/L (136-145); TOTAL PROTEIN 6.7 GM/DL (6.4-8.2)
[2018-09-17] MEDS: IPRATROPIUM 0.5MG/ALBUTEROL 2.5MG INH SOL UD 3ML (DUONEB)(J7620) NEB SCH ×3 (08:09→20:00)
[2018-09-17] MEDS: CARVedilol 12.5 MG TAB PO SCH ×2 (08:42→22:09)
[2018-09-17] MEDS: hydroCHLOROthiazide 12.5 MG CAPSULE PO SCH (08:54)
[2018-09-17] MEDS: DOCUSATE SODIUM 100 MG CAP PO SCH ×2 (08:54→22:08)
[2018-09-17] MEDS: GABAPENTIN 400 MG CAP PO SCH ×2 (08:54→22:08)
[2018-09-17] MEDS: FOLIC ACID 1 MG TAB PO SCH (08:54)
[2018-09-17] MEDS: predniSONE 20 MG TAB PO SCH (08:54)
[2018-09-17] MEDS: NICOTINE 21MG/24HR 1 EA TRANSDERMAL TD SCH (08:55)
[2018-09-17] MEDS ORDERED: PANTOPRAZOLE 40MG TAB (PROTONIX) PO SCH (09:00)
--- NOTE | 2018-09-17 10:03 | NUR ---
Recommend regular diet, thin liquids. No dysphagia tx recommended at this time. Pt tolerates regular solids and thin liquids w/ oropharyngeal swallow function wnl, no s/sx aspiration noted. Addendum: 09/17/18 at 1004 by SERJIO NORRIS [facility] SP Amended: Links added.
--- NOTE | 2018-09-17 10:07 | NUR ---
Pt scores wnl on cognitive assessment completed this date. He denies any changes in cognition. Cognitive tx is not recommended at this time. Addendum: 09/17/18 at 1008 by SERJIO NORRIS [facility] Amended: Links added.
--- NOTE | 2018-09-17 12:20 | REP ---
Chest two views HISTORY: Infiltrate Comparison: 09/09/2018 The lungs are clear. The heart is normal in size. The pulmonary vasculature is normal in appearance. The bony structure is intact. IMPRESSION: No acute disease. Electronically Signed by Herb Davalos MD 09/17/2018 12:11 P
[2018-09-17] MEDS: METHOTREXATE 2.5 MG TAB (J8610 PER 2.5MG) PO SCH (12:31)
--- NOTE | 2018-09-17 13:01 | HPEPDOC ---
Kennel Operator Note DATE OF ADMISSION: Sep 16, 2018 at 14:50 SOURCE OF ADMISSION INFORMATION: patient and [facility] records CHIEF COMPLAINT: Guillaine-Stonewall Syndrome/CIDP HISTORY OF PRESENT ILLNESS: 58M with pmh HTN, PAF, and GBS/AIDP first diagnosed in 1997, with recurrence in July and August 2018 at both points he was hospitalized for IVIG therapy for symptoms of ascending paresthesias and paralysis who again presented to [facility] ED on 09/09/18 with similar symptoms unable to stand. 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 He reported worsening neuropathy symptoms it was requested his Amiodarone to be changed as this can aggravate nerve pain. Brain MRI was performed which was unremarkable. He was taken off Amiodarone and his Elavil dose was increased. He was evaluated by therapy and was found to be well below his prior level of function requiring assistance with bed mobility and inability to stand. He had leukocytosis deemed to be viral in nature and considered to be medically appropriate for discharge to ARU on 09/16/18. REVIEW OF SYSTEMS: The following is a completed review of systems and has been reviewed. Review of systems otherwise unremarkable. PAIN: Patient self reports tingling and burning in his feet and legs EYES: denies recent vision changes EARS, NOSE, & THROAT: no rhinorrhea, denies dysphagia CARDIOVASCULAR: denies chest pain or palpitations PULMONARY: Negative. Denies shortness of breath, +cough GASTROINTESTINAL:+constipation GENITOURINARY:denies dysuria or incontinence MUSCULOSKELETAL: Bilat LE>UE weakness NEUROLOGICAL: paresthesias SKIN: no rash PSYCHIATRIC: Unremarkable All other review of systems found to be negative. PAST MEDICAL HISTORY: as per HPI PAST SURGICAL HISTORY: tracheostomy, colonoscopy with polyp removal, right hydrocelestomy, cardiac ablation, lap-cholecystectomy ALLERGIES: Please see below. MEDICATIONS: Please see below. 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 GENERAL: Pleasant and cooperative. No acute distress. HEENT: PERRL. Extraocular movements intact. Clear conjunctiva CARDIOVASCULAR: Regular rate and rhythm. No murmurs, rubs, or gallops LUNGS: Mostly clear to auscultation bilaterally. No wheezes. + rhonchi ABDOMEN: Soft, nontender, mildly distended. Positive bowel sounds. Normal active bowel sounds NEUROLOGICAL: Alert and oriented times three. Cranial nerves II through XII grossly intact. Sensation diminished to light touch in bilater LE and bila hands depressed reflexes throughout +bilat essential tremor EXTREMITIES: 4\5 strength bilateral upper extremities. 3+\5 strength right lower extremity. 3+/5 strength in left lower extremity. SKIN: intact IMAGING: Imaging documentation personally reviewed by record FUNCTIONAL STATUS: Premorbid: Able to ambulate within the home by furniture surfing, independent with most ADLs On Admission: Min-Total Assist for functional transfers, Max assist for lower body dressing, difficulty standing due to apraxia, standby assist for eating GOALS: Mod-I from a wheel chair level including functional transfers, supervision for household distances with RW, Mod-I for dressing, supervision bathing, medical optimization, caregiver training ASSESSMENT:58-year-old M with past medical history of GBS who presents status post recurrence of symptoms with new diagnosis of CIDP PLAN: 1. rehab: PT, OT, BACTERIOLOGIST MEDICAL -goal to strengthen trunk control, improve finer motor strength in UE for more efficient self-feeding, strengthen LE, advance standing tolerance and improve coordination in setting of neuropathy for eventual ambulation -multipoduse boots while in bed with skin checks to prevent heel cord contractures 2. Neuro: s/p recent recurrences of GBS with IVIG in July and August, now s/p IV S olumedrol infusion- c/u on prednisone, monitor for worsening neuroligal picture -will need outpatient neuro follow-up -c/u gabapentin and Elavil for neuropathic pain 3. Cardio: pmh paroxysmal afib, Amiodarone recently d/c'd, c/u on Carvedilol Xarelto and will need outpatient follow-up with cardiology -pmh HTN- c/u Losartan and HCTZ- medicine consulted to assist with management 4. Resp: pmh smoker with cough, will obtain CXR and will provide guaifaisin and breathing treatments 5. GI ppx: Protonix BID while on steroids, will obtain FOBT as well 6. : monitor PVRs 6. DVT ppx: On xarelto for Afib 7. Dispo: TBD POST ADMISSION PHYSICIAN EVALUATION: Medical and functional status: Description of medical status, medical assessment: As above. Rehabilitation diagnosis and current and prior cold morbid medical conditions as above. Risk of complications and plans to mitigate them as above. Description of functional status current status is as above. Prior status as above. Status compared to preadmission: There are no clinically significant differences between the patient's current status and the information described on the preadmission screening document. Treatment plan anticipated: Treatment plan is as described above. Required disciplines including physical therapy, occupational therapy, others as noted above Intensity of services: 3 hours a day, 6 days a week. Special considerations: There are no specific special or safety considerations that would likely preclude immediate implementation of an intensive rehabilitation program or subsequently influence the plan of care. ATTESTATION: Considering all the information above, it is my best judgment that this patient requires intensive rehabilitation therapy as described above and an inpatient hospital environment due to the complexity of nursing, medical, and rehabilitation needs required by the patient. Furthermore, this patient can reasonably be expected to participate in an benefit from an inpatient rehabilitation stay with an interdisciplinary team approach to the delivery of rehabilitation care under the direction and supervision of rehabilitation physician. PROGNOSIS: Good ESTIMATED LENGTH OF STAY:18-21 days. PROJECTED DISCHARGE DESTINATION: Home with family support and any durable med ical equipment required to increase functional safety and mobility TIME SPENT COUNSELING AND COORDINATING INITIAL CARE: Greater than70 minutes. Vital Signs Vital Sign - Last 24 Hours 09/16/18 09/16/18 09/16/18 09/16/18 14:40 20:00 20:04 20:05 Temp 97.6 97.6 Pulse 66 72 Resp 18 18 18 B/P (MAP) 128/75 (92) 127/80 (96) 127/80 Pulse Ox 94 93 09/16/18 09/16/18 09/16/18 09/17/18 20:05 20:26 20:35 06:00 Temp 98.0 Pulse 72 69 Resp 18 19 B/P (MAP) 105/68 (80) Pulse Ox 93 09/17/18 08:42 Pulse 69 B/P (MAP) 105/68 Laboratory Data CBC/BMP Laboratory Tests 09/17/18 06:05 Red Blood Count 4.06 L, Mean Corpuscular Volume 95.6, Mean Corpuscular Hemoglob in 33.0, Mean Corpuscular Hemoglobin Concent 34.5, Red Cell Distribution Width 13.4, Neutrophils (%) (Auto) 82.1 H, Lymphocytes (%) (Auto) 8.6 L, Monocytes (%) (Auto) 8.7 H, Eosinophils (%) (Auto) 0.0, Basophils (%) (Auto) 0.0, Neutrophils # (Auto) 7.6, Lymphocytes # (Auto) 0.8 L, Monocytes # (Auto) 0.8, Eosinophils # (Auto) 0.0, Basophils # (Auto) 0.0, Calcium Level 8.6, Aspartate Amino Transf (A ST/SGOT) 9, Alanine Aminotransferase (ALT/SGPT) 28, Alkaline Phosphatase 102, Total Bilirubin 0.3, Total Protein 6.7, Albumin 2.3 L Labs 24H Laboratory Tests 2 09/17/18 06:05: Immature Granulocyte % (Auto) 0.6, White Blood Count 9.3, Red Blood Count 4.06L, Hemoglobin 13.4L, Hematocrit 38.8L, Mean Corpuscular Volume 95.6, Mean Corpuscular Hemoglobin 33.0, Mean Corpuscular Hemoglobin Concent 34.5, Red Cell Distribution Width 13.4, Platelet Count 371, Neutrophils (%) (Auto) 82.1H, Lymphocytes (%) (Auto) 8.6L, Monocytes (%) (Auto) 8.7H, Eosinophils (%) (Auto) 0.0, Basophils (%) (Auto) 0.0, Neutrophils # (Auto) 7.6, Lymphocytes # (Auto) 0.8L, Monocytes # (Auto) 0.8, Eosinophils # (Auto) 0.0, Basophils # (Auto) 0.0, Nucleated Red Blood Cells % (auto) 0.0, Anion Gap 10, Glomerular Filtration Rate > 60.0, Blood Urea Nitrogen 34H, Creatinine 1.03, Sodium Level 140, Potassium Level 3.7, Chloride Level 103, Carbon Dioxide Level 27, Calcium Level 8.6, Aspa rtate Amino Transf (AST/SGOT) 9, Alanine Aminotransferase (ALT/SGPT) 28, Alkaline Phosphatase 102, Total Bilirubin 0.3, Total Protein 6.7, Albumin 2.3L, Albumin/Globulin Ratio 0.52L Home Medications Scheduled Amitriptyline HCl (Amitriptyline HCl) 50 Mg Tablet, 50 MG PO QHS Carvedilol (Carvedilol) 25 Mg Tab, 25 MG PO BID, (Reported) Folic Acid (Folic Acid) 1 Mg Tablet, 1 MG PO DAILY Gabapentin (Gabapentin) 800 Mg Tablet, 800 MG PO DAILY, (Reported) Gabapentin (Gabapentin) 800 Mg Tablet, 1,600 MG PO QHS, (Reported) Hydrochlorothiazide (Hydrochlorothiazide) 12.5 Mg Capsule, 12.5 MG PO DAILY, (Reported) Losartan Potassium (Losartan Potassium) 25 Mg Tablet, 25 MG PO QHS, (Reported) Methotrexate Sodium (Methotrexate) 2.5 Mg Tablet, 7.5 MG PO Th@09 Omeprazole (Omeprazole) 40 Mg Capsule.dr, 40 MG PO DAILY, (Reported) Prednisone (Prednisone) 20 Mg Tablet, 60 MG PO QAM Rivaroxaban (Xarelto) 20 Mg Tablet, 20 MG PO QHS, (Reported) Scheduled PRN Acetaminophen with Codeine (Acetaminophen-Cod #3 Tablet) 1 Each Tablet, 1 TAB PO BID PRN for PAIN, (Reported) Cyclobenzaprine HCl (Cyclobenzaprine HCl) 10 Mg Tab, 10 MG PO TID PRN for SPASMS, (Reported) Hydrocodone/Acetaminophen (Hydrocodone-Acetamin 5-325 mg) 1 Each Tablet, 1 TAB PO TID PRN for PAIN, (Reported) Allergies Coded Allergies: lisinopril (Verified Adverse Reaction, Intermediate, INCREASES POTASSIUM LEVELS, 08/13/18) A-FIB/CHADSVASC A-FIB History Current/History of A-Fib/PAF?: Yes Current PO Anticoag Therapy: Yes LEYDI LAUREANO MD Sep 17, 2018 13:00
--- NOTE | 2018-09-17 13:02 | IPNPDOC ---
PM&R Progress Note DATE OF SERVICE: Sep 17, 2018 [employer] Technician Progress Note Subjective: Patient seen in therapy propelling his wheelchair with difficulty given his UE tremors. States he feels ok. REVIEW OF SYSTEMS: The following is a completed review of systems and has been reviewed. Review of systems otherwise unremarkable. PAIN: Patient self reports tingling and burning in his feet and legs EYES: denies recent vision changes EARS, NOSE, & THROAT: no rhinorrhea, denies dysphagia CARDIOVASCULAR: denies chest pain or palpitations PULMONARY: Negative. Denies shortness of breath, +cough GASTROINTESTINAL:+constipation GENITOURINARY:denies dysuria or incontinence MUSCULOSKELETAL: Bilat LE>UE weakness NEUROLOGICAL: paresthesias SKIN: no rash PSYCHIATRIC: Unremarkable All other review of systems found to be negative. PHYSICAL EXAMINATION: VITAL SIGNS: Please see below. GENERAL: Pleasant and cooperative. No acute distress. HEENT: PERRL. Extraocular movements intact. Clear conjunctiva CARDIOVASCULAR: Regular rate and rhythm. No murmurs, rubs, or gallops LUNGS: Mostly clear to auscultation bilaterally. No wheezes. + rhonchi ABDOMEN: Soft, nontender, mildly distended. Positive bowel sounds. Normal active bowel sounds NEUROLOGICAL: Alert and oriented times three. Cranial nerves II through XII grossly intact. Sensation diminished to light touch in bilater LE and bila hands depressed reflexes throughout +bilat essential tremor in UE EXTREMITIES: 4\5 strength bilateral upper extremities. 3+\5 strength right lower extremity. 3+/5 strength in left lower extremity. 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 Neuro: s/p recent recurrences of GBS with IVIG in July and August, now s/p IV Solumedrol infusion- c/u on prednisone, monitor for worsening neurological picture -will need outpatient neuro follow-up -c/u gabapentin and Elavil for neuropathic pain 3. Cardio: pmh paroxysmal afib, Amiodarone recently d/c'd, c/u on Carvedilol and Xarelto and will need outpatient follow-up with cardiology -pmh HTN- c/u Losartanand HCTZ- medicine consulted to assist with management 4. Resp: pmh smoker with cough, CXR negative for acute disease -c/u guaifaisin and breathing treatments 5. GI ppx: Protonix BID while on steroids, FOBT ordered 6. : monitor PVRs 6. DVT ppx: On xarelto for Afib 7. Dispo: TBD Allergies Coded Allergies: lisinopril (Verified Adverse Reaction, Intermediate, INCREASES POTASSIUM LEVELS, 08/13/18) Vital Signs Vital Signs Date Time Temp Pulse Resp B/P (MAP) Pulse Ox O2 Delivery O2 Flow Rate FiO2 09/17/18 08:42 69 105/68 09/17/18 06:00 98.0 19 93 Laboratory Data CBC/BMP Laboratory Tests 09/17/18 06:05 Red Blood Count 4.06 L, Mean Corpuscular Volume 95.6, Mean Corpuscular Hemoglobin 33.0, Mean Corpuscular Hemoglobin Concent 34.5, Red Cell Distribution Width 13.4, Neutrophils (%) (Auto) 82.1 H, Lymphocytes (%) (Auto) 8.6 L, Monocytes (%) (Auto) 8.7 H, Eosinophils (%) (Auto) 0.0, Basophils (%) (Auto) 0.0, Neutrophils # (Auto) 7.6, Lymphocytes # (Auto) 0.8 L, Monocytes # (Auto) 0.8, Eosinophils # (Auto) 0.0, Basophils # (Auto) 0.0, Calcium Level 8.6, Aspartate Amino Transf (AST/SGOT) 9, Alanine Aminotransferase (ALT/SGPT) 28, Alkaline Phosphatase 102, Total Bilirubin 0.3, Total Protein 6.7, Albumin 2.3 L Labs 24H Laboratory Tests 2 09/17/18 06:05: Immature Granulocyte % (Auto) 0.6, White Blood Count 9.3, Red Blood Count 4.06L, Hemoglobin 13.4L, Hematocrit 38.8L, Mean Corpuscular Volume 95.6, Mean Corpuscular Hemoglobin 33.0, Mean Corpuscular Hemoglobin Concent 34.5, Red Cell Distribution Width 13.4, Platelet Count 371, Neutrophils (%) (Auto) 82.1H, Lymphocytes (%) (Auto) 8.6L, Monocytes (%) (Auto) 8.7H, Eosinophils (%) (Auto) 0.0, Basophils (%) (Auto) 0.0, Neutrophils # (Auto) 7.6, Lymphocytes # (Auto) 0.8L, Monocytes # (Auto) 0.8, Eosinophils # (Auto) 0.0, Basophils # (Auto) 0.0, Nucleated Red Blood Cells % (auto) 0.0, Anion Gap 10, Glomerular Filtration Rate > 60.0, Blood Urea Nitrogen 34H, Creatinine 1.03, Sodium Level 140, Potassium Level 3.7, Chloride Level 103, Carbon Dioxide Level 27, Calcium Level 8.6, Aspartate Amino Transf (AST/SGOT) 9, Alanine Aminotransferase (ALT/SGPT) 28, Alkaline Phosphatase 102, Total Bilirubin 0.3, Total Protein 6.7, Albumin 2.3L, Albumin/Globulin Ratio 0.52L Current Medications Current Medications Current Medications Acetaminophen/ Hydrocodone Bitart ([place], Anexsia 5/325) 1 tab Q4HP PRN PO MODERATE PAIN (PS 5-7) Last administered on 09/16/18 20:05; Start 09/16/18 at 14:45 Albuterol/ Ipratropium (Duoneb (Ipr 0.5mg/Alb 2.5mg)) 3 ml RTID NEB Last administered on 09/17/18 08:09; Start 09/16/18 at 20:00 Amitriptyline HCl (Elavil) 50 mg QHS PO Last administered on 09/16/18 20:04; Start 09/16/18 at 21:00 Carvedilol (COReg) 25 mg BID PO Last administered on 09/16/18 20:05; Start 09/16/18 at 21:00 Docusate Sodium (Colace) 100 mg BID PO Last administered on 09/17/18 08:54; Start 09/16/18 at 21:00 Folic Acid (Folic Acid) 1 mg DAILY PO Last administered on 09/17/18 08:54; Start 09/17/18 at 09:00 Gabapentin (Neurontin) 800 mg DAILY PO Last administered on 09/17/18 08:54; Start 09/17/18 at 09:00 Gabapentin (Neurontin) 1,600 mg QHS PO Last administered on 09/16/18 20:03; Start 09/16/18 at 21:00 Hydrochlorothiazide (Hydrodiuril) 12.5 mg DAILY PO Last administered on 09/17/18 08:54; Start 09/17/18 at 09:00 Losartan Potassium (Cozaar) 25 mg QHS PO Last administered on 09/16/18 20:04; Start 09/16/18 at 21:00 Methotrexate (Folex) 7.5 mg Th@09 PO Last administered on 09/17/18 12:31; Start 09/17/18 at 09:00 Nicotine (Nicoderm Cq 21mg) 1 patch DAILY TD Last administered on 09/17/18 08:55; Start 09/17/18 at 09:00 Pantoprazole Sodium (Protonix) 40 mg DAILY PO Last administered on 09/17/18 08:54; Start 09/17/18 at 09:00 Prednisone (Deltasone) 60 mg DAILY PO Last administered on 09/17/18 08:54; Start 09/17/18 at 09:00 Rivaroxaban (Xarelto) 20 mg DAILY@18 PO Last administered on 09/16/18 17:21; Start 09/16/18 at 18:00 Senna (Senokot) 1 tab QHS PO Last administered on 09/16/18 20:04; Start 09/16/18 at 21:00 LEYDI LAUREANO MD Sep 17, 2018 13:02
[2018-09-17 14:00] VITALS: BP 118/72
[2018-09-17] MEDS ORDERED: FLEET ENEMA PR ONE (14:00)
[2018-09-17] MEDS: RIVAROXABAN 20 MG TAB (XARELTO) PO SCH (17:38)
[2018-09-17] MEDS: SIMETHICONE 80 MG CHEW TAB PO SCH ×2 (17:38→22:09)
[2018-09-17] MEDS: NORCO, ANEXSIA 5/325MG TABLET (HYDROcodone/ACETAMINOPHEN) PO PRN ×2 (17:42→22:10)
[2018-09-17 20:00] VITALS: BP 110/70
[2018-09-17] MEDS: PANTOPRAZOLE 40MG TAB (PROTONIX) PO SCH (22:08)
[2018-09-17] MEDS: SENNA 8.6 MG TAB (SENOKOT) PO SCH (22:09)
[2018-09-17] MEDS: AMITRIPTYLINE 50 MG TAB PO SCH (22:09)
[2018-09-17] MEDS: LOSARTAN 25 MG TAB PO SCH (22:09)
[2018-09-18 05:00] VITALS: BP 118/69
[2018-09-18 06:12] LABS: BASO % 0.2 % (0.0-1.0); EOS % 0.2 % (0.0-3.0); HEMOGLOBIN 13.6 g/dl (13.5-17.5); LYMPH # 2.4 10^3/uL (1.5-4.5); MEAN CORPUSCULAR HEMOGLOBIN 33.7 pg (27.0-33.0); MEAN CORPUSCULAR HGB CONC 34.9 g/dl (32.0-36.5); MEAN CORPUSCULAR VOLUME 96.8 fl (80.0-96.0); MONO # 0.9 10^3/uL (0.0-0.8); MONO % 9.6 % (0.0-5.0); NEUTROPHILS # 6.2 10^3/uL (1.8-7.7); NEUTROPHILS % 64.3 % (36.0-66.0); PLATELET COUNT, AUTOMATED 352 10^3/uL (150-450); RED BLOOD COUNT 4.03 10^6/uL (4.30-6.10); WHITE BLOOD COUNT 9.7 10^3/uL (4.0-10.0)
[2018-09-18 06:29] LABS: BLOOD UREA NITROGEN 34 MG/DL (7-18); CALCIUM LEVEL 8.4 MG/DL (8.5-10.1); CARBON DIOXIDE LEVEL 29 MEQ/L (21-32); CHLORIDE LEVEL 104 MEQ/L (98-107); CREATININE FOR GFR 0.99 MG/DL (0.70-1.30); GLOMERULAR FILTRATION RATE > 60.0 (>56); GLUCOSE, FASTING 85 MG/DL (70-100); POTASSIUM SERUM 3.5 MEQ/L (3.5-5.1); SODIUM LEVEL 140 MEQ/L (136-145)
[2018-09-18] MEDS: IPRATROPIUM 0.5MG/ALBUTEROL 2.5MG INH SOL UD 3ML (DUONEB)(J7620) NEB SCH ×3 (08:35→20:07)
[2018-09-18] MEDS: SIMETHICONE 80 MG CHEW TAB PO SCH ×3 (08:42→20:37)
[2018-09-18] MEDS: predniSONE 20 MG TAB PO SCH (08:42)
[2018-09-18] MEDS: DOCUSATE SODIUM 100 MG CAP PO SCH ×2 (08:42→20:37)
[2018-09-18] MEDS: GABAPENTIN 400 MG CAP PO SCH ×2 (08:43→20:35)
[2018-09-18] MEDS: PANTOPRAZOLE 40MG TAB (PROTONIX) PO SCH ×2 (08:43→20:36)
[2018-09-18] MEDS: FOLIC ACID 1 MG TAB PO SCH (08:43)
[2018-09-18] MEDS: CARVedilol 12.5 MG TAB PO SCH ×2 (08:43→20:36)
[2018-09-18] MEDS: hydroCHLOROthiazide 12.5 MG CAPSULE PO SCH (08:43)
[2018-09-18] MEDS: NICOTINE 21MG/24HR 1 EA TRANSDERMAL TD SCH (08:44)
--- NOTE | 2018-09-18 11:46 | IPNPDOC ---
Subjective Date Seen The patient was seen on 09/18/18. Subjective Chief Complaint/HPI Patient is a 58-year-old male, past medical history significant for hypertension, paroxysmal atrial fibrillation, Guillain-Carlin syndrome, presenting to the hospital on account of ascending paresthesias and paralysis. After medical stabilization, he was discharged to inpatient rehabilitation unit. Objective Physical Examination General Exam: Positive: Alert, Cooperative, No Acute Distress Eye Exam: Positive: PERRLA, Conjunctiva & lids normal, EOMI ENT Exam: Positive: Atraumatic Neck Exam: Positive: Supple, +2 carotid pulse wo bruit; Negative: JVD, thyromegaly Chest Exam: Positive: Clear to auscultation, Normal air movement; Negative: Rales, Rhonchi Heart Exam: Positive: Regular Rhythm Abdomen Exam: Positive: Normal bowel sounds, Soft; Negative: Tenderness Extremity Exam: Negative: Clubbing, Cyanosis, Edema Skin Exam: Positive: Nl turgor and temperature; Negative: Rash, Breakdown Neuro Exam: Positive: Normal Speech, Cranial Nerves 3-12 NL Psych Exam: Positive: Mental status NL, Oriented x 3; Negative: Anxiety Assessment /Plan Assessment Guillain-Carlin syndrome -Continue prednisone -Presenting with acute exacerbation and new diagnosis of chronic inflammatory demyelinating polyneuropathy Paroxysmal atrial fibrillation -Continue Xarelto for anticoagulation therapy -Continue beta flaquito for rate control Hypertension -Continue HCTZ, Coreg, losartan Plan/VTE VTE Prophylaxis Ordered?: Yes VS, I&O, 24H, Fishbone Vital Signs/I&O Vital Signs Date Time Temp Pulse Resp B/P (MAP) Pulse Ox O2 Delivery O2 Flow Rate FiO2 09/18/18 08:43 72 118/69 09/18/18 05:00 98.1 18 100 I&O- Last 24 Hours up to 6 AM 09/18/18 06:00 Intake Total 1400 ml Output Total 900 ml Balance 500 ml Laboratory Data 24H LABS Laboratory Tests 2 09/18/18 05:56: Immature Granulocyte % (Auto) 0.7, White Blood Count 9.7, Red Blood Count 4.03L, Hemoglobin 13.6, Hematocrit 39.0L, Mean Corpuscular Volume 96.8H, Mean Corpuscul ar Hemoglobin 33.7H, Mean Corpuscular Hemoglobin Concent 34.9, Red Cell Distribution Width 13.6, Platelet Count 352, Neutrophils (%) (Auto) 64.3, Lymphocytes (%) (Auto) 25.0, Monocytes (%) (Auto) 9.6H, Eosinophils (%) (Auto) 0.2, Basophils (%) (Auto) 0.2, Neutrophils # (Auto) 6.2, Lymphocytes # (Auto) 2.4, Monocytes # (Auto) 0.9H, Eosinophils # (Auto) 0.0, Basophils # (Auto) 0.0, Nucleated Red Blood Cells % (auto) 0.0, Anion Gap 7L, Glomerular Filtration Rate > 60.0, Blood Urea Nitrogen 34H, Creatinine 0.99, Sodium Level 140, Potassium Level 3.5, Chloride Level 104, Carbon Dioxide Level 29, Calcium Level 8.4L CBC/BMP Laboratory Tests 09/18/18 05:56 Red Blood Count 4.03 L, Mean Corpuscular Volume 96.8 H, Mean Corpuscular Hemoglobin 33.7 H, Mean Corpuscular Hemoglobin Concent 34.9, Red Cell Distribution Width 13.6, Neutrophils (%) (Auto) 64.3, Lymphocytes (%) (Auto) 2 5.0, Monocytes (%) (Auto) 9.6 H, Eosinophils (%) (Auto) 0.2, Basophils (%) (Auto) 0.2, Neutrophils # (Auto) 6.2, Lymphocytes # (Auto) 2.4, Monocytes # (Auto) 0.9 H, Eosinophils # (Auto) 0.0, Basophils # (Auto) 0.0, Calcium Level 8.[address] [facility] Sep 18, 2018 11:46
[2018-09-18 11:47] VITALS: BP 118/69
[2018-09-18 14:00] VITALS: BP 101/71
[2018-09-18] MEDS: RIVAROXABAN 20 MG TAB (XARELTO) PO SCH (17:29)
[2018-09-18] MEDS: NORCO, ANEXSIA 5/325MG TABLET (HYDROcodone/ACETAMINOPHEN) PO PRN (17:36)
[2018-09-18 20:00] VITALS: BP 115/75
[2018-09-18] MEDS: AMITRIPTYLINE 50 MG TAB PO SCH (20:36)
[2018-09-18] MEDS: SENNA 8.6 MG TAB (SENOKOT) PO SCH (20:37)
[2018-09-18] MEDS: LOSARTAN 25 MG TAB PO SCH (20:37)
[2018-09-19] VITALS: BP 133/80
[2018-09-19 04:00] VITALS: BP 124/83
[2018-09-19] MEDS: IPRATROPIUM 0.5MG/ALBUTEROL 2.5MG INH SOL UD 3ML (DUONEB)(J7620) NEB SCH ×3 (07:33→20:04)
[2018-09-19] MEDS: DOCUSATE SODIUM 100 MG CAP PO SCH ×2 (08:29→20:29)
[2018-09-19] MEDS: NICOTINE 21MG/24HR 1 EA TRANSDERMAL TD SCH (08:29)
[2018-09-19] MEDS: NORCO, ANEXSIA 5/325MG TABLET (HYDROcodone/ACETAMINOPHEN) PO PRN ×2 (08:29→20:27)
[2018-09-19] MEDS: CARVedilol 12.5 MG TAB PO SCH ×2 (08:30→20:28)
[2018-09-19] MEDS: PANTOPRAZOLE 40MG TAB (PROTONIX) PO SCH ×2 (08:30→20:28)
[2018-09-19] MEDS: SIMETHICONE 80 MG CHEW TAB PO SCH ×3 (08:30→20:28)
[2018-09-19] MEDS: GABAPENTIN 400 MG CAP PO SCH ×2 (08:30→20:25)
[2018-09-19] MEDS: FOLIC ACID 1 MG TAB PO SCH (08:30)
[2018-09-19] MEDS: predniSONE 20 MG TAB PO SCH (09:43)
[2018-09-19 10:00] VITALS: BP 99/62
[2018-09-19 14:00] VITALS: BP 95/62
--- NOTE | 2018-09-19 14:34 | IPNPDOC ---
Subjective Date Seen The patient was seen on 09/19/18. Subjective Chief Complaint/HPI Patient is a 58-year-old male, past medical history significant for hypertension, paroxysmal atrial fibrillation, Guillain-Carlin syndrome, presenting to the hospital on account of acute worsening ascending paresthesias and paralysis. After medical stabilization, he was discharged to inpatient rehabilitation unit. Events since last encounter Has no complaints today. denies chills, fever, CP, SOB Objective Physical Examination General Exam: Positive: Alert, Cooperative, No Acute Distress Eye Exam: Positive: PERRLA, Conjunctiva & lids normal, EOMI ENT Exam: Positive: Atraumatic, Mucous membr. moist/pink Neck Exam: Positive: Supple, +2 carotid pulse wo bruit; Negative: JVD, thyromegaly Chest Exam: Positive: Clear to auscultation, Normal air movement; Negative: Rales, Rhonchi Heart Exam: Positive: Regular Rhythm Abdomen Exam: Positive: Normal bowel sounds, Soft; Negative: Tenderness Extremity Exam: Negative: Clubbing, Cyanosis, Edema Skin Exam: Positive: Nl turgor and temperature; Negative: Rash, Breakdown Neuro Exam: Positive: Normal Speech, Cranial Nerves 3-12 NL Psych Exam: Positive: Mental status NL, Oriented x 3; Negative: Anxiety Assessment /Plan Assessment Guillain-Carlin syndrome -Presenting with acute exacerbation and new diagnosis of (CIDP)chronic inflammatory demyelinating polyneuropathy -Continue prednisone -rehabilitation by primary team Paroxysmal atrial fibrillation -Continue Xarelto for anticoagulation therapy -Continue beta flaquito for rate control Hypertension -hypotensive at this time -HCTZ has been discontinued -reduce dose Coreg -continue losartan Plan/VTE VTE Prophylaxis Ordered?: Yes VS, I&O, 24H, Fishbone Vital Signs/I&O Vital Signs Date Time Temp Pulse Resp B/P (MAP) Pulse Ox O2 Delivery O2 Flow Rate FiO2 09/19/18 10:00 98.4 77 18 99/62 (42) 94 I&O- Last 24 Hours up to 6 AM 09/19/18 06:00 Intake Total 680 ml Output Total 1100 ml Balance -420 ml BHARAT CURRAN [employer]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
[2018-09-19] MEDS: RIVAROXABAN 20 MG TAB (XARELTO) PO SCH (17:09)
[2018-09-19 18:00] VITALS: BP 91/64
[2018-09-19 20:00] VITALS: BP 123/77
[2018-09-19] MEDS: AMITRIPTYLINE 50 MG TAB PO SCH (20:28)
[2018-09-19] MEDS: SENNA 8.6 MG TAB (SENOKOT) PO SCH (20:28)
[2018-09-19] MEDS: LOSARTAN 25 MG TAB PO SCH (20:28)
[2018-09-20] VITALS: BP 112/71
[2018-09-20 04:00] VITALS: BP 123/86
[2018-09-20] MEDS: IPRATROPIUM 0.5MG/ALBUTEROL 2.5MG INH SOL UD 3ML (DUONEB)(J7620) NEB SCH ×2 (07:08→13:39)
[2018-09-20] MEDS: DOCUSATE SODIUM 100 MG CAP PO SCH ×2 (08:13→22:12)
[2018-09-20] MEDS: SIMETHICONE 80 MG CHEW TAB PO SCH ×3 (08:13→22:12)
[2018-09-20] MEDS: FOLIC ACID 1 MG TAB PO SCH (08:13)
[2018-09-20] MEDS: PANTOPRAZOLE 40MG TAB (PROTONIX) PO SCH ×2 (08:13→22:14)
[2018-09-20] MEDS: CARVedilol 12.5 MG TAB PO SCH ×2 (08:13→22:14)
[2018-09-20] MEDS: GABAPENTIN 400 MG CAP PO SCH ×2 (08:13→22:12)
[2018-09-20] MEDS: predniSONE 20 MG TAB PO SCH (08:13)
[2018-09-20] MEDS: NICOTINE 21MG/24HR 1 EA TRANSDERMAL TD SCH (08:14)
[2018-09-20 10:00] VITALS: BP 92/69
[2018-09-20 14:00] VITALS: BP 96/66
--- NOTE | 2018-09-20 14:02 | IPNPDOC ---
Subjective Date Seen The patient was seen on 09/20/18. Subjective Chief Complaint/HPI Patient is a 58-year-old male, past medical history significant for hypertension, paroxysmal atrial fibrillation, Guillain-Carlin syndrome, presenting to the hospital on account of acute worsening ascending paresthesias and paralysis. After medical stabilization, he was discharged to inpatient rehabilitation unit. Events since last encounter Seen while working with PT. No new complaints today. Denies chest pain, denies SOB Objective Physical Examination General Exam: Positive: Alert, Cooperative, No Acute Distress Eye Exam: Positive: PERRLA, Conjunctiva & lids normal, EOMI ENT Exam: Positive: Atraumatic, Mucous membr. moist/pink Neck Exam: Positive: Supple, +2 carotid pulse wo bruit; Negative: JVD, thyromegaly Chest Exam: Positive: Clear to auscultation, Normal air movement; Negative: Rales, Rhonchi Heart Exam: Positive: Regular Rhythm Abdomen Exam: Positive: Normal bowel sounds, Soft; Negative: Tenderness Extremity Exam: Negative: Clubbing, Cyanosis, Edema Skin Exam: Positive: Nl turgor and temperature; Negative: Rash, Breakdown Neuro Exam: Positive: Normal Speech, Cranial Nerves 3-12 NL Psych Exam: Positive: Mental status NL, Oriented x 3; Negative: Anxiety Assessment /Plan Assessment Guillain-Carlin syndrome -Presenting with acute exacerbation and new diagnosis of (CIDP)chronic inflammat ory demyelinating polyneuropathy -Continue prednisone -rehabilitation by primary team Hypertension -persisting intermittent hypotension -Coreg dose reduced to 12.5 BID -reduce further till SBP stays around 120 -MAP has been adequate -continue losartan Paroxysmal atrial fibrillation -Continue Xarelto for anticoagulation therapy -Continue beta flaquito for rate control Plan/VTE VTE Prophylaxis Ordered?: Yes VS, I&O, 24H, Fishbone Vital Signs/I&O Vital Signs Date Time Temp Pulse Resp B/P (MAP) Pulse Ox O2 Delivery O2 Flow Rate FiO2 09/20/18 10:00 97.8 79 18 92/69 (77) 95 I&O- Last 24 Hours up to 6 AM 09/20/18 06:00 Intake Total 1480 ml Output Total 1450 ml Balance 30 ml BHARAT CURRAN Sep 20, 2018 14:02
[2018-09-20] MEDS: RIVAROXABAN 20 MG TAB (XARELTO) PO SCH (17:23)
[2018-09-20 18:00] VITALS: BP 105/64
[2018-09-20 20:15] VITALS: BP 119/77
[2018-09-20] MEDS: NORCO, ANEXSIA 5/325MG TABLET (HYDROcodone/ACETAMINOPHEN) PO PRN (22:13)
[2018-09-20] MEDS: LOSARTAN 25 MG TAB PO SCH (22:14)
[2018-09-20] MEDS: SENNA 8.6 MG TAB (SENOKOT) PO SCH (22:14)
[2018-09-20] MEDS: AMITRIPTYLINE 50 MG TAB PO SCH (22:15)
[2018-09-21] VITALS: BP 118/84
[2018-09-21 04:00] VITALS: BP 110/71
[2018-09-21] MEDS: CARVedilol 12.5 MG TAB PO SCH ×2 (08:39→21:20)
[2018-09-21] MEDS: predniSONE 20 MG TAB PO SCH (08:39)
[2018-09-21] MEDS: FOLIC ACID 1 MG TAB PO SCH (08:40)
[2018-09-21] MEDS: BACTRIM 160MG/800MG DS TAB PO SCH (08:40)
[2018-09-21] MEDS: GABAPENTIN 400 MG CAP PO SCH ×2 (08:40→21:19)
[2018-09-21] MEDS: DOCUSATE SODIUM 100 MG CAP PO SCH ×2 (08:40→21:18)
[2018-09-21] MEDS: SIMETHICONE 80 MG CHEW TAB PO SCH ×3 (08:40→21:19)
[2018-09-21] MEDS: PANTOPRAZOLE 40MG TAB (PROTONIX) PO SCH ×2 (08:40→21:19)
[2018-09-21] MEDS: NICOTINE 21MG/24HR 1 EA TRANSDERMAL TD SCH (08:41)
[2018-09-21 10:00] VITALS: BP 109/78
[2018-09-21] MEDS: IPRATROPIUM 0.5MG/ALBUTEROL 2.5MG INH SOL UD 3ML (DUONEB)(J7620) NEB SCH ×3 (11:15→20:30)
--- NOTE | 2018-09-21 12:58 | IPNPDOC ---
Subjective Date Seen The patient was seen on 09/21/18. Subjective Chief Complaint/HPI Patient is a 58-year-old male, past medical history significant for hypertension, paroxysmal atrial fibrillation, Guillain-Carlin syndrome, presenting to the hospital on account of acute worsening ascending paresthesias and paralysis. After medical stabilization, he was discharged to inpatient rehabilitation unit. Events since last encounter Feels much improved today. Requesting seizure precautions be discontinued as they make it harder for him to maneuver in the bed Objective Physical Examination General Exam: Positive: Alert, Cooperative, No Acute Distress Eye Exam: Positive: PERRLA, Conjunctiva & lids normal, EOMI ENT Exam: Positive: Atraumatic, Mucous membr. moist/pink Neck Exam: Positive: Supple, +2 carotid pulse wo bruit; Negative: JVD, thyromegaly Chest Exam: Positive: Clear to auscultation, Normal air movement; Negative: Rales, Rhonchi Heart Exam: Positive: Regular Rhythm Abdomen Exam: Positive: Normal bowel sounds, Soft; Negative: Tenderness Extremity Exam: Negative: Clubbing, Cyanosis, Edema Skin Exam: Positive: Nl turgor and temperature; Negative: Rash, Breakdown Neuro Exam: Positive: Normal Speech, Cranial Nerves 3-12 NL Psych Exam: Positive: Mental status NL, Oriented x 3; Negative: Anxiety Assessment /Plan Assessment Guillain-Carlin syndrome -Presenting with acute exacerbation and new diagnosis of (CIDP)chronic inflammatory demyelinating polyneuropathy -Continue prednisone -rehabilitation by primary team Hypertension -continue reduced dose coreg -monitoring of blood pressure per unit protocol -avoid hypotension Paroxysmal atrial fibrillation -Continue Xarelto for anticoagulation therapy -Continue beta flaquito for rate control Plan/VTE VTE Prophylaxis Ordered?: Yes VS, I&O, 24H, Fishbone Vital Signs/I&O Vital Signs Date Time Temp Pulse Resp B/P (MAP) Pulse Ox O2 Delivery O2 Flow Rate FiO2 09/21/18 08:39 76 110/71 09/21/18 04:00 98.8 16 100 I&O- Last 24 Hours up to 6 AM 09/21/18 06:00 Intake Total 1620 ml Output Total 700 ml Balance 920 ml BHARAT CURRAN Sep 21, 2018 12:58
[2018-09-21 14:00] VITALS: BP 109/70
[2018-09-21] MEDS: RIVAROXABAN 20 MG TAB (XARELTO) PO SCH (17:06)
[2018-09-21 18:00] VITALS: BP 110/67
[2018-09-21] MEDS ORDERED: FLEET ENEMA PR ONE (19:45)
--- NOTE | 2018-09-21 19:49 | IPNPDOC ---
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 He believes his legs are getting stronger. REVIEW OF SYSTEMS: The following is a completed review of systems and has been reviewed. Review of systems otherwise unremarkable. PAIN: Patient self reports tingling and burning in his feet and legs EYES: denies recent vision changes EARS, NOSE, & THROAT: no rhinorrhea, denies dysphagia CARDIOVASCULAR: denies chest pain or palpitations PULMONARY: Negative. Denies shortness of breath, +cough GASTROINTESTINAL:+constipation GENITOURINARY:denies dysuria or incontinence MUSCULOSKELETAL: Bilat LE>UE weakness NEUROLOGICAL: paresthesias SKIN: no rash PSYCHIATRIC: Unremarkable All other review of systems found to be negative. PHYSICAL EXAMINATION: VITAL SIGNS: Please see below. GENERAL: Pleasant and cooperative. No acute distress. HEENT: PERRL. Extraocular movements intact. Clear conjunctiva CARDIOVASCULAR: Regular rate and rhythm. No murmurs, rubs, or gallops LUNGS: Mostly clear to auscultation bilaterally. No wheezes. + rhonchi ABDOMEN: Soft, nontender, mildly distended. Positive bowel sounds. Normal active bowel sounds NEUROLOGICAL: Alert and oriented times three. Cranial nerves II through XII grossly intact. Sensation diminished to light touch in bilater LE and bila hands depressed reflexes throughout +bilat essential tremor in UE (improving) EXTREMITIES: 4\5 strength bilateral upper extremities. 4\5 strength right lower extremity. 4/5 strength in left lower extremity. 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 Neuro: s/p recent recurrences of GBS with IVIG in July and August, now s/p IV Solumedrol infusion- c/u on prednisone, monitor for worsening neurological picture -will need outpatient neuro follow-up -c/u gabapentin and Elavil for neuropathic pain 3. Cardio: pmh paroxysmal afib, Amiodarone recently d/c'd, c/u on Carvedilol and Xarelto and will need outpatient follow-up with cardiology -pmh HTN- c/u Losartan, HCTZ d/laura fotr low BPs- medicine following 4. Resp: pmh smoker with cough, CXR negative for acute disease -c/u guaifaisin and breathing treatments 5. GI ppx: Protonix BID while on steroids, FOBT ordered -will give enema tonight 6. : monitor PVRs 6. DVT ppx: On xarelto for Afib 7. Dispo: TBD Allergies Coded Allergies: lisinopril (Verified Adverse Reaction, Intermediate, INCREASES POTASSIUM LEVELS, 08/13/18) Vital Signs Vital Signs Date Time Temp Pulse Resp B/P (MAP) Pulse Ox O2 Delivery O2 Flow Rate FiO2 09/21/18 14:00 98.7 76 18 109/70 (83) 94 Current Medications Current Medications Current Medications Acetaminophen/ Hydrocodone Bitart ([place], Anexsia 5/325) 1 tab Q4HP PRN PO MODERATE PAIN (PS 5-7) Last administered on 09/20/18at 22:13; Start 09/16/18 at 14:45 Albuterol/ Ipratropium (Duoneb (Ipr 0.5mg/Alb 2.5mg)) 3 ml RTID NEB Last administered on 09/21/18at 14:55; Start 09/16/18 at 20:00 Amitriptyline HCl (Elavil) 50 mg QHS PO Last administered on 09/20/18at 22:15; Start 09/16/18 at 21:00 Carvedilol (COReg) 12.5 mg BID PO Last administered on 09/21/18at 08:39; Start 09/19/18 at 21:00 Carvedilol (COReg) 25 mg BID PO Last administered on 09/19/18at 08:30; Start 09/16/18 at 21:00; Stop 09/19/18 at 14:18; Status DC Docusate Sodium (Colace) 100 mg BID PO Last administered on 09/21/18at 08:40; Start 09/16/18 at 21:00; Stop 09/21/18 at 19:45; Status DC Docusate Sodium (Colace) 100 mg TID PO ; Start 09/21/18 at 21:00 Folic Acid (Folic Acid) 1 mg DAILY PO Last administered on 09/21/18 08:40; Start 09/17/18 at 09:00 Gabapentin (Neurontin) 800 mg DAILY PO Last administered on 09/21/18at 08:40; Start 09/17/18 at 09:00 Gabapentin (Neurontin) 1,600 mg QHS PO Last administered on 09/20/18 22:12; Start 09/16/18 at 21:00 Hydrochlorothiazide (Hydrodiuril) 12.5 mg DAILY PO Last administered on 09/18/18 08:43; Start 09/17/18 at 09:00; Stop 09/18/18 at 11:43; Status DC Losartan Potassium (Cozaar) 25 mg QHS PO Last administered on 09/20/18at 22:14; Start 09/16/18 at 21:00 Methotrexate (Folex) 7.5 mg Th@09 PO Last administered on 09/17/18 12:31; Start 09/17/18 at 09:00 Nicotine (Nicoderm Cq 21mg) 1 patch DAILY TD Last administered on 09/21/18 08:41; Start 09/17/18 at 09:00 Pantoprazole Sodium (Protonix) 40 mg BID PO Last administered on 09/21/18 08:40; Start 09/17/18 at 21:00 Pantoprazole Sodium (Protonix) 40 mg DAILY PO Last administered on 09/17/18at 08:54; Start 09/17/18 at 09:00; Stop 09/17/18 at 12:58; Status DC Prednisone (Deltasone) 60 mg DAILY PO Last administered on 09/21/18at 08:39; Start 09/17/18 at 09:00 Rivaroxaban (Xarelto) 20 mg DAILY@18 PO Last administered on 09/21/18at 17:06; Start 09/16/18 at 18:00 Senna (Senokot) 1 tab QHS PO Last administered on 09/20/18at 22:14; Start 09/16/18 at 21:00; Stop 09/21/18 at 19:45; Status DC Senna (Senokot) 2 tab QHS PO ; Start 09/21/18 at 21:00 Simethicone (Mylicon) 80 mg TID PO Last administered on 09/21/18at 17:05; Start 09/17/18 at 16:00 Trimethoprim/ Sulfamethoxazole (Bactrim Ds, Septra Ds 160mg/ 800mg) 1 tab MoWeFr@09 PO Last administered on 09/21/18at 08:40; Start 09/21/18 at 09:00 LEYDI LAUREANO MD Sep 21, 2018 19:49
[2018-09-21] MEDS: SENNA 8.6 MG TAB (SENOKOT) PO SCH (21:19)
[2018-09-21] MEDS: AMITRIPTYLINE 50 MG TAB PO SCH (21:20)
[2018-09-21] MEDS: LOSARTAN 25 MG TAB PO SCH (21:20)
[2018-09-21 22:00] VITALS: BP 117/74
[2018-09-21] MEDS: NORCO, ANEXSIA 5/325MG TABLET (HYDROcodone/ACETAMINOPHEN) PO PRN (22:29)
[2018-09-22 02:00] VITALS: BP 106/70
[2018-09-22 06:00] VITALS: BP 109/69
[2018-09-22] MEDS: IPRATROPIUM 0.5MG/ALBUTEROL 2.5MG INH SOL UD 3ML (DUONEB)(J7620) NEB SCH ×3 (08:00→23:05)
[2018-09-22] MEDS: CARVedilol 12.5 MG TAB PO SCH (08:05)
[2018-09-22] MEDS: DOCUSATE SODIUM 100 MG CAP PO SCH ×3 (08:55→20:07)
[2018-09-22] MEDS: predniSONE 20 MG TAB PO SCH (08:55)
[2018-09-22] MEDS: SIMETHICONE 80 MG CHEW TAB PO SCH ×3 (08:55→20:08)
[2018-09-22] MEDS: GABAPENTIN 400 MG CAP PO SCH ×2 (08:55→20:06)
[2018-09-22] MEDS: FOLIC ACID 1 MG TAB PO SCH (08:55)
[2018-09-22] MEDS: PANTOPRAZOLE 40MG TAB (PROTONIX) PO SCH ×2 (08:55→20:08)
[2018-09-22] MEDS: NICOTINE 21MG/24HR 1 EA TRANSDERMAL TD SCH (08:56)
[2018-09-22 10:00] VITALS: BP 95/66
--- NOTE | 2018-09-22 14:02 | IPNPDOC ---
Subjective Date Seen The patient was seen on 09/22/18. Subjective Chief Complaint/HPI Patient is a 58-year-old male, past medical history significant for hypertension, paroxysmal atrial fibrillation, Guillain-Carlin syndrome, presenting to the hospital on account of acute worsening ascending paresthesias and paralysis. After medical stabilization, he was discharged to inpatient rehabilitation unit. Events since last encounter Working with PT at time of assessment. denies pain,SOB, malaise Objective Physical Examination General Exam: Positive: Alert, Cooperative, No Acute Distress Eye Exam: Positive: PERRLA, Conjunctiva & lids normal, EOMI ENT Exam: Positive: Atraumatic, Mucous membr. moist/pink Neck Exam: Positive: Supple, +2 carotid pulse wo bruit; Negative: JVD, thyromegaly Chest Exam: Positive: Clear to auscultation, Normal air movement; Negative: Rales, Rhonchi Heart Exam: Positive: Regular Rhythm Abdomen Exam: Positive: Normal bowel sounds, Soft; Negative: Tenderness Extremity Exam: Negative: Clubbing, Cyanosis, Edema Skin Exam: Positive: Nl turgor and temperature; Negative: Rash, Breakdown Neuro Exam: Positive: Normal Speech, Cranial Nerves 3-12 NL Psych Exam: Positive: Mental status NL, Oriented x 3; Negative: Anxiety Assessment /Plan Assessment Guillain-Carlin syndrome -Presenting with acute exacerbation and new diagnosis of (CIDP)chronic inflammatory demyelinating polyneuropathy -Continued on prednisone -rehabilitation by primary team Hypertension -still hypotensive on reduced dose coreg -reduce further -monitoring of blood pressure per unit protocol -avoid hypotension -consider discontinuation of Losartan if persistently hypotensive Paroxysmal atrial fibrillation -Continue Xarelto for anticoagulation therapy -Continue beta flaquito (coreg)for rate control Plan/VTE VTE Prophylaxis Ordered?: Yes VS, I&O, 24H, Fishbone Vital Signs/I&O Vital Signs Date Time Temp Pulse Resp B/P (MAP) Pulse Ox O2 Delivery O2 Flow Rate FiO2 09/22/18 08:05 77 109/69 09/22/18 06:00 98.6 20 94 I&O- Last 24 Hours up to 6 AM 09/22/18 06:00 Intake Total 960 ml Output Total 700 ml Balance 260 ml Laboratory Data Microbiology Microbiology 09/22/18 Stool Occult Blood (QUINCY) - Final, Complete 09/21/18 Stool Occult Blood (QUINCY) - Final, Complete BHARAT CURRANP Sep 22, 2018 14:02
[2018-09-22] MEDS: RIVAROXABAN 20 MG TAB (XARELTO) PO SCH (17:30)
[2018-09-22] MEDS: SENNA 8.6 MG TAB (SENOKOT) PO SCH (20:07)
[2018-09-22] MEDS: NORCO, ANEXSIA 5/325MG TABLET (HYDROcodone/ACETAMINOPHEN) PO PRN (20:07)
[2018-09-22] MEDS: AMITRIPTYLINE 50 MG TAB PO SCH (20:08)
[2018-09-22 20:13] VITALS: BP 116/82
[2018-09-22] MEDS: LOSARTAN 25 MG TAB PO SCH (20:15)
[2018-09-22] MEDS: CARVedilol 3.125 MG TAB PO SCH (20:15)
[2018-09-23 02:15] VITALS: BP 116/58
[2018-09-23 06:00] VITALS: BP 127/89
[2018-09-23] MEDS: IPRATROPIUM 0.5MG/ALBUTEROL 2.5MG INH SOL UD 3ML (DUONEB)(J7620) NEB SCH ×3 (07:30→20:43)
[2018-09-23] MEDS: CARVedilol 3.125 MG TAB PO SCH ×2 (08:09→21:18)
[2018-09-23] MEDS: SIMETHICONE 80 MG CHEW TAB PO SCH ×3 (08:59→21:18)
[2018-09-23] MEDS: FOLIC ACID 1 MG TAB PO SCH (09:00)
[2018-09-23] MEDS: BACTRIM 160MG/800MG DS TAB PO SCH (09:00)
[2018-09-23] MEDS: predniSONE 20 MG TAB PO SCH (09:00)
[2018-09-23] MEDS: NICOTINE 21MG/24HR 1 EA TRANSDERMAL TD SCH (09:00)
[2018-09-23] MEDS: DOCUSATE SODIUM 100 MG CAP PO SCH ×3 (09:00→21:19)
[2018-09-23] MEDS: PANTOPRAZOLE 40MG TAB (PROTONIX) PO SCH ×2 (09:00→21:19)
[2018-09-23] MEDS: GABAPENTIN 400 MG CAP PO SCH ×2 (09:00→21:16)
[2018-09-23 10:00] VITALS: BP 109/74
[2018-09-23 14:00] VITALS: BP 142/74
[2018-09-23] MEDS: RIVAROXABAN 20 MG TAB (XARELTO) PO SCH (17:31)
[2018-09-23 18:00] VITALS: BP 130/62
[2018-09-23 20:00] VITALS: BP 135/86
[2018-09-23] MEDS: SENNA 8.6 MG TAB (SENOKOT) PO SCH (21:16)
[2018-09-23] MEDS: LOSARTAN 25 MG TAB PO SCH (21:17)
[2018-09-23] MEDS: NORCO, ANEXSIA 5/325MG TABLET (HYDROcodone/ACETAMINOPHEN) PO PRN (21:19)
[2018-09-23] MEDS: AMITRIPTYLINE 50 MG TAB PO SCH (21:19)
[2018-09-24] VITALS: BP 101/66
[2018-09-24 04:00] VITALS: BP 110/75
[2018-09-24] MEDS: IPRATROPIUM 0.5MG/ALBUTEROL 2.5MG INH SOL UD 3ML (DUONEB)(J7620) NEB SCH ×3 (07:45→19:58)
[2018-09-24 08:00] VITALS: BP 122/72
[2018-09-24] MEDS: DOCUSATE SODIUM 100 MG CAP PO SCH ×3 (09:19→20:26)
[2018-09-24] MEDS: METHOTREXATE 2.5 MG TAB (J8610 PER 2.5MG) PO SCH (09:20)
[2018-09-24] MEDS: GABAPENTIN 400 MG CAP PO SCH ×2 (09:20→20:25)
[2018-09-24] MEDS: CARVedilol 3.125 MG TAB PO SCH ×2 (09:20→20:30)
[2018-09-24] MEDS: predniSONE 20 MG TAB PO SCH (09:20)
[2018-09-24] MEDS: FOLIC ACID 1 MG TAB PO SCH (09:21)
[2018-09-24] MEDS: NICOTINE 21MG/24HR 1 EA TRANSDERMAL TD SCH (09:21)
[2018-09-24] MEDS: SIMETHICONE 80 MG CHEW TAB PO SCH ×3 (09:21→20:26)
[2018-09-24] MEDS: PANTOPRAZOLE 40MG TAB (PROTONIX) PO SCH ×2 (09:21→20:26)
[2018-09-24 09:42] LABS: TOTAL PROTEIN 5.8 GM/DL (6.4-8.2)
[2018-09-24 09:51] LABS: VITAMIN B12 LEVEL 455 PG/ML (247-911)
[2018-09-24 10:00] VITALS: BP 117/79
--- NOTE | 2018-09-24 11:33 | IPNPDOC ---
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 he feels he is getting stronger and his tremors are gradually improving. REVIEW OF SYSTEMS: The following is a completed review of systems and has been reviewed. Review of systems otherwise unremarkable. PAIN: Patient self reports tingling and burning in his feet and legs EYES: denies recent vision changes EARS, NOSE, & THROAT: no rhinorrhea, denies dysphagia CARDIOVASCULAR: denies chest pain or palpitations PULMONARY: Negative. Denies shortness of breath, +cough GASTROINTESTINAL:+constipation GENITOURINARY:denies dysuria or incontinence MUSCULOSKELETAL: Bilat LE>UE weakness NEUROLOGICAL: paresthesias SKIN: no rash PSYCHIATRIC: Unremarkable All other review of systems found to be negative. PHYSICAL EXAMINATION: VITAL SIGNS: Please see below. GENERAL: Pleasant and cooperative. No acute distress. HEENT: PERRL. Extraocular movements intact. Clear conjunctiva CARDIOVASCULAR: Regular rate and rhythm. No murmurs, rubs, or gallops LUNGS: Mostly clear to auscultation bilaterally. No wheezes. + rhonchi ABDOMEN: Soft, nontender, mildly distended. Positive bowel sounds. Normal active bowel sounds NEUROLOGICAL: Alert and oriented times three. Cranial nerves II through XII grossly intact. Sensation diminished to light touch in bilater LE and bila hands depressed reflexes throughout +bilat essential tremor in UE (improving) EXTREMITIES: 4\5 strength bilateral upper extremities. 4\5 strength right lower extremity. 4/5 strength in left lower extremity. 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 Neuro: s/p recent recurrences of GBS with IVIG in July and August, now s/p IV Solumedrol infusion- c/u on prednisone, monitor for worsening neurological picture -will need outpatient neuro follow-up -c/u gabapentin and Elavil for neuropathic pain 3. Cardio: pmh paroxysmal afib, Amiodarone recently d/c'd, c/u on Carvedilol and Xarelto and will need outpatient follow-up with cardiology -pmh HTN- c/u Losartan, HCTZ d/laura for low BPs- medicine following 4. Resp: pmh smoker with cough, CXR negative for acute disease -c/u guaifaisin and breathing treatments 5. GI ppx: Protonix BID while on steroids, FOBT positive, no signs of active bleed will monitor H/H and refer to outpatient GI -bowel movements improving on regimen 6. : monitor PVRs 6. DVT ppx: On xarelto for Afib 7. Dispo: TBD Allergies Coded Allergies: lisinopril (Verified Adverse Reaction, Intermediate, INCREASES POTASSIUM LEVELS, 08/13/18) Vital Signs Vital Signs Date Time Temp Pulse Resp B/P (MAP) Pulse Ox O2 Delivery O2 Flow Rate FiO2 09/24/18 09:20 95 112/75 09/24/18 08:00 98.1 18 96 Laboratory Data Labs 24H Laboratory Tests 2 09/24/18 08:44: Total Protein (PEP) 5.8L, Vitamin B12 Level 455, Immunotype (Immunosubtraction) SEE COMMENT Microbiology Microbiology 09/22/18 Stool Occult Blood (QUINCY) - Final, Complete 09/21/18 Stool Occult Blood (QUINCY) - Final, Complete Current Medications Current Medications Current Medications Acetaminophen/ Hydrocodone Bitart ([place], Anexsia 5/325) 1 tab Q4HP PRN PO MODE RATE PAIN (PS 5-7) Last administered on 09/23/18at 21:19; Start 09/16/18 at 14:45 Albuterol/ Ipratropium (Duoneb (Ipr 0.5mg/Alb 2.5mg)) 3 ml RTID NEB Last administered on 09/23/18at 20:43; Start 09/16/18 at 20:00 Amitriptyline HCl (Elavil) 50 mg QHS PO Last administered on 09/23/18at 21:19; Start 09/16/18 at 21:00 Carvedilol (COReg) 3.125 mg BID PO Last administered on 09/24/18at 09:20; Start 09/22/18 at 21:00 Carvedilol (COReg) 12.5 mg BID PO Last administered on 09/21/18 21:20; Start 09/19/18 at 21:00; Stop 09/22/18 at 14:01; Status DC Carvedilol (COReg) 25 mg BID PO Last administered on 09/19/18at 08:30; Start 09/16/18 at 21:00; Stop 09/19/18 at 14:18; Status DC Docusate Sodium (Colace) 100 mg BID PO Last administered on 09/21/18 08:40; Start 09/16/18 at 21:00; Stop 09/21/18 at 19:45; Status DC Docusate Sodium (Colace) 100 mg TID PO Last administered on 09/24/18 09:19; Start 09/21/18 at 21:00 Folic Acid (Folic Acid) 1 mg DAILY PO Last administered on 09/24/18 09:21; Start 09/17/18 at 09:00 Gabapentin (Neurontin) 800 mg DAILY PO Last administered on 09/24/18 09:20; Start 09/17/18 at 09:00 Gabapentin (Neurontin) 1,600 mg QHS PO Last administered on 09/23/18 21:16; Start 09/16/18 at 21:00 Hydrochlorothiazide (Hydrodiuril) 12.5 mg DAILY PO Last administered on 09/18/18at 08:43; Start 09/17/18 at 09:00; Stop 09/18/18 at 11:43; Status DC Losartan Potassium (Cozaar) 25 mg QHS PO Last administered on 09/23/18at 21:17; Start 09/16/18 at 21:00 Methotrexate (Folex) 7.5 mg Th@09 PO Last administered on 09/24/18at 09:20; Start 09/17/18 at 09:00 Miscellaneous (Unresolved Clarification Entry) SEE LABEL COMMENTS DAILY XX ; Start 09/22/18 at 09:00; Stop 09/22/18 at 15:14; Status DC Miscellaneous (Unresolved Clarification Entry) SEE LABEL COMMENTS DAILY XX ; S tart 09/22/18 at 09:00; Stop 09/22/18 at 16:27; Status DC Nicotine (Nicoderm Cq 21mg) 1 patch DAILY TD Last administered on 09/24/18 09:21; Start 09/17/18 at 09:00 Pantoprazole Sodium (Protonix) 40 mg BID PO Last administered on 09/24/18 09:21; Start 09/17/18 at 21:00 Pantoprazole Sodium (Protonix) 40 mg DAILY PO Last administered on 09/17/18 08:54; Start 09/17/18 at 09:00; Stop 09/17/18 at 12:58; Status DC Prednisone (Deltasone) 60 mg DAILY PO Last administered on 09/24/18 09:20; Start 09/17/18 at 09:00 Rivaroxaban (Xarelto) 20 mg DAILY@18 PO Last administered on 09/23/18 17:31; Start 09/16/18 at 18:00 Senna (Senokot) 1 tab QHS PO Last administered on 09/20/18 22:14; Start 09/16/18 at 21:00; Stop 09/21/18 at 19:45; Status DC Senna (Senokot) 2 tab QHS PO Last administered on 09/23/18at 21:16; Start 09/21/18 at 21:00 Simethicone (Mylicon) 80 mg TID PO Last administered on 09/24/18 09:21; Start 09/17/18 at 16:00 Trimethoprim/ Sulfamethoxazole (Bactrim Ds, Septra Ds 160mg/ 800mg) 1 tab MoWeFr@09 PO Last administered on 09/23/18 09:00; Start 09/21/18 at 09:00 LEYDI LAUREANO MD Sep 24, 2018 11:33
--- NOTE | 2018-09-24 11:33 | IPNPDOC ---
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 REVIEW OF SYSTEMS: The following is a completed review of systems and has been reviewed. Review of systems otherwise unremarkable. PAIN: Patient self reports tingling and burning in his feet and legs EYES: denies recent vision changes EARS, NOSE, & THROAT: no rhinorrhea, denies dysphagia CARDIOVASCULAR: denies chest pain or palpitations PULMONARY: Negative. Denies shortness of breath, +cough GASTROINTESTINAL:+constipation GENITOURINARY:denies dysuria or incontinence MUSCULOSKELETAL: Bilat LE>UE weakness NEUROLOGICAL: paresthesias SKIN: no rash PSYCHIATRIC: Unremarkable All other review of systems found to be negative. PHYSICAL EXAMINATION: VITAL SIGNS: Please see below. GENERAL: Pleasant and cooperative. No acute distress. HEENT: PERRL. Extraocular movements intact. Clear conjunctiva CARDIOVASCULAR: Regular rate and rhythm. No murmurs, rubs, or gallops LUNGS: Mostly clear to auscultation bilaterally. No wheezes. + rhonchi ABDOMEN: Soft, nontender, mildly distended. Positive bowel sounds. Normal active bowel sounds NEUROLOGICAL: Alert and oriented times three. Cranial nerves II through XII grossly intact. Sensation diminished to light touch in bilater LE and bila hands depressed reflexes throughout +bilat essential tremor in UE (improving) EXTREMITIES: 4\5 strength bilateral upper extremities. 4\5 strength right lower extremity. 4/5 strength in left lower extremity. 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 Neuro: s/p recent recurrences of GBS with IVIG in July and August, now s/p IV Solumedrol infusion- c/u on prednisone, monitor for worsening neurological picture -will need outpatient neuro follow-up -c/u gabapentin and Elavil for neuropathic pain 3. Cardio: pmh paroxysmal afib, Amiodarone recently d/c'd, c/u on Carvedilol and Xarelto and will need outpatient follow-up with cardiology -pmh HTN- c/u Losartan, HCTZ d/laura for low BPs- medicine following 4. Resp: pmh smoker with cough, CXR negative for acute disease -c/u guaifaisin and breathing treatments 5. GI ppx: Protonix BID while on steroids, FOBT positive, no signs of active bleed will monitor H/H and refer to outpatient GI -bowel movements improving on regimen 6. : monitor PVRs 6. DVT ppx: On xarelto for Afib 7. Dispo: 10/16/18, progressing towards goals to home, goal is be Mod-I household ambulator with RW Allergies Coded Allergies: lisinopril (Verified Adverse Reaction, Intermediate, INCREASES POTASSIUM LEVELS, 08/13/18) Vital Signs Vital Signs Date Time Temp Pulse Resp B/P (MAP) Pulse Ox O2 Delivery O2 Flow Rate FiO2 09/24/18 09:20 95 112/75 09/24/18 08:00 98.1 18 96 Laboratory Data Labs 24H Laboratory Tests 2 09/24/18 08:44: Total Protein (PEP) 5.8L, Vitamin B12 Level 455, Immunotype (Immunosubtraction) SEE COMMENT Microbiology Microbiology 09/22/18 Stool Occult Blood (QUINCY) - Final, Complete 09/21/18 Stool Occult Blood (QUINCY) - Final, Complete Current Medications Current Medications Current Medications Acetaminophen/ Hydrocodone Bitart ([place], Anexsia 5/325) 1 tab Q4HP PRN PO MODERATE PAIN (PS 5-7) Last administered on 09/23/18at 21:19; Start 09/16/18 at 14:45 Albuterol/ Ipratropium (Duoneb (Ipr 0.5mg/Alb 2.5mg)) 3 ml RTID NEB Last administered on 09/23/18at 20:43; Start 09/16/18 at 20:00 Amitriptyline HCl (Elavil) 50 mg QHS PO Last administered on 09/23/18at 21:19; Start 09/16/18 at 21:00 Carvedilol (COReg) 3.125 mg BID PO Last administered on 09/24/18 09:20; Start 09/22/18 at 21:00 Carvedilol (COReg) 12.5 mg BID PO Last administered on 09/21/18 21:20; Start 09/19/18 at 21:00; Stop 09/22/18 at 14:01; Status DC Carvedilol (COReg) 25 mg BID PO Last administered on 09/19/18 08:30; Start 09/16/18 at 21:00; Stop 09/19/18 at 14:18; Status DC Docusate Sodium (Colace) 100 mg BID PO Last administered on 09/21/18 08:40; Start 09/16/18 at 21:00; Stop 09/21/18 at 19:45; Status DC Docusate Sodium (Colace) 100 mg TID PO Last administered on 09/24/18 09:19; Start 09/21/18 at 21:00 Folic Acid (Folic Acid) 1 mg DAILY PO Last administered on 09/24/18 09:21; Start 09/17/18 at 09:00 Gabapentin (Neurontin) 800 mg DAILY PO Last administered on 09/24/18 09:20; Start 09/17/18 at 09:00 Gabapentin (Neurontin) 1,600 mg QHS PO Last administered on 09/23/18 21:16; Start 09/16/18 at 21:00 Hydrochlorothiazide (Hydrodiuril) 12.5 mg DAILY PO Last administered on 09/18/18 08:43; Start 09/17/18 at 09:00; Stop 09/18/18 at 11:43; Status DC Losartan Potassium (Cozaar) 25 mg QHS PO Last administered on 09/23/18 21:17; Start 09/16/18 at 21:00 Methotrexate (Folex) 7.5 mg Th@09 PO Last administered on 09/24/18 09:20; Start 09/17/18 at 09:00 Miscellaneous (Unresolved Clarification Entry) SEE LABEL COMMENTS DAILY XX ; Start 09/22/18 at 09:00; Stop 09/22/18 at 15:14; Status DC Miscellaneous (Unresolved Clarification Entry) SEE LABEL COMMENTS DAILY XX ; Start 09/22/18 at 09:00; Stop 09/22/18 at 16:27; Status DC Nicotine (Nicoderm Cq 21mg) 1 patch DAILY TD Last administered on 09/24/18 09:21; Start 09/17/18 at 09:00 Pantoprazole Sodium (Protonix) 40 mg BID PO Last administered on 09/24/18 09 :21; Start 09/17/18 at 21:00 Pantoprazole Sodium (Protonix) 40 mg DAILY PO Last administered on 09/17/18at 08:54; Start 09/17/18 at 09:00; Stop 09/17/18 at 12:58; Status DC Prednisone (Deltasone) 60 mg DAILY PO Last administered on 09/24/18 09:20; Start 09/17/18 at 09:00 Rivaroxaban (Xarelto) 20 mg DAILY@18 PO Last administered on 09/23/18 17:31; Start 09/16/18 at 18:00 Senna (Senokot) 1 tab QHS PO Last administered on 09/20/18at 22:14; Start 09/16/18 at 21:00; Stop 09/21/18 at 19:45; Status DC Senna (Senokot) 2 tab QHS PO Last administered on 09/23/18at 21:16; Start 09/21/18 at 21:00 Simethicone (Mylicon) 80 mg TID PO Last administered on 09/24/18 09:21; Start 09/17/18 at 16:00 Trimethoprim/ Sulfamethoxazole (Bactrim Ds, Septra Ds 160mg/ 800mg) 1 tab MoWeFr@09 PO Last administered on 09/23/18 09:00; Start 09/21/18 at 09:00 LEYDI LAUREANO MD Sep 24, 2018 11:33
--- NOTE | 2018-09-24 11:34 | IPNPDOC ---
PM&R Progress Note DATE OF SERVICE: Sep 24, 2018 Supportability Engineer Progress Note Subjective: Patient asking about his syndrome and wondering if it will happen again. He feels he is getting good therapy. REVIEW OF SYSTEMS: The following is a completed review of systems and has been reviewed. Review of systems otherwise unremarkable. PAIN: Patient self reports tingling and burning in his feet and legs EYES: denies recent vision changes EARS, NOSE, & THROAT: no rhinorrhea, denies dysphagia CARDIOVASCULAR: denies chest pain or palpitations PULMONARY: Negative. Denies shortness of breath, +cough GASTROINTESTINAL:no constipation or diarrhea GENITOURINARY:denies dysuria or incontinence MUSCULOSKELETAL: Bilat LE>UE weakness NEUROLOGICAL: paresthesias SKIN: no rash PSYCHIATRIC: Unremarkable All other review of systems found to be negative. PHYSICAL EXAMINATION: VITAL SIGNS: Please see below. GENERAL: Pleasant and cooperative. No acute distress. HEENT: PERRL. Extraocular movements intact. Clear conjunctiva CARDIOVASCULAR: Regular rate and rhythm. No murmurs, rubs, or gallops LUNGS: Mostly clear to auscultation bilaterally. No wheezes. + rhonchi ABDOMEN: Soft, nontender, mildly distended. Positive bowel sounds. Normal active bowel sounds NEUROLOGICAL: Alert and oriented times three. Cranial nerves II through XII grossly intact. Sensation diminished to light touch in bilater LE and bila hands depressed reflexes throughout +bilat essential tremor in UE (improving) EXTREMITIES: 4\5 strength bilateral upper extremities. 4\5 strength right lower extremity. 4/5 strength in left lower extremity. 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 Neuro: s/p recent recurrences of GBS with IVIG in July and August, now s/p IV Solumedrol infusion- c/u on prednisone, monitor for worsening neurological picture -will need outpatient neuro follow-up -c/u gabapentin and Elavil for neuropathic pain 3. Cardio: pmh paroxysmal afib, Amiodarone recently d/c'd, c/u on Carvedilol and Xarelto and will need outpatient follow-up with cardiology -pmh HTN- c/u Losartan, HCTZ d/laura for low BPs- medicine following 4. Resp: pmh smoker with cough, CXR negative for acute disease -c/u guaifaisin and breathing treatments 5. GI ppx: Protonix BID while on steroids, FOBT positive, no signs of active bleed will monitor H/H and refer to outpatient GI -bowel movements improving on regimen 6. : monitor PVRs 6. DVT ppx: On xarelto for Afib 7. Dispo: 10/16/18, progressing towards goals to home, goal is be Mod-I household ambulator with RW Allergies Coded Allergies: lisinopril (Verified Adverse Reaction, Intermediate, INCREASES POTASSIUM LEVELS, 08/13/18) Vital Signs Vital Signs Date Time Temp Pulse Resp B/P (MAP) Pulse Ox O2 Delivery O2 Flow Rate FiO2 09/24/18 09:20 95 112/75 09/24/18 08:00 98.1 18 96 Laboratory Data Labs 24H Laboratory Tests 2 09/24/18 08:44: Total Protein (PEP) 5.8L, Vitamin B12 Level 455, Immunotype (Immunosubtraction) SEE COMMENT Microbiology Microbiology 09/22/18 Stool Occult Blood (QUINCY) - Final, Complete 09/21/18 Stool Occult Blood (QUINCY) - Final, Complete Current Medications Current Medications Current Medications Acetaminophen/ Hydrocodone Bitart ([place], Anexsia 5/325) 1 tab Q4HP PRN PO MODERATE PAIN (PS 5-7) Last administered on 09/23/18at 21:19; Start 09/16/18 at 14:45 Albuterol/ Ipratropium (Duoneb (Ipr 0.5mg/Alb 2.5mg)) 3 ml RTID NEB Last administered on 09/23/18at 20:43; Start 09/16/18 at 20:00 Amitriptyline HCl (Elavil) 50 mg QHS PO Last administered on 09/23/18at 21:19; Start 09/16/18 at 21:00 Carvedilol (COReg) 3.125 mg BID PO Last administered on 09/24/18 09:20; Start 09/22/18 at 21:00 Carvedilol (COReg) 12.5 mg BID PO Last administered on 09/21/18 21:20; Start 09/19/18 at 21:00; Stop 09/22/18 at 14:01; Status DC Carvedilol (COReg) 25 mg BID PO Last administered on 09/19/18 08:30; Start 09/16/18 at 21:00; Stop 09/19/18 at 14:18; Status DC Docusate Sodium (Colace) 100 mg BID PO Last administered on 09/21/18 08:40; Start 09/16/18 at 21:00; Stop 09/21/18 at 19:45; Status DC Docusate Sodium (Colace) 100 mg TID PO Last administered on 09/24/18 09:19; Start 09/21/18 at 21:00 Folic Acid (Folic Acid) 1 mg DAILY PO Last administered on 09/24/18 09:21; Start 09/17/18 at 09:00 Gabapentin (Neurontin) 800 mg DAILY PO Last administered on 09/24/18 09:20; Start 09/17/18 at 09:00 Gabapentin (Neurontin) 1,600 mg QHS PO Last administered on 09/23/18 21:16; Start 09/16/18 at 21:00 Hydrochlorothiazide (Hydrodiuril) 12.5 mg DAILY PO Last administered on 09/18/18 08:43; Start 09/17/18 at 09:00; Stop 09/18/18 at 11:43; Status DC Losartan Potassium (Cozaar) 25 mg QHS PO Last administered on 09/23/18 21:17; Start 09/16/18 at 21:00 Methotrexate (Folex) 7.5 mg Th@09 PO Last administered on 09/24/18 09:20; Start 09/17/18 at 09:00 Miscellaneous (Unresolved Clarification Entry) SEE LABEL COMMENTS DAILY XX ; Start 09/22/18 at 09:00; Stop 09/22/18 at 15:14; Status DC Miscellaneous (Unresolved Clarification Entry) SEE LABEL COMMENTS DAILY XX ; Start 09/22/18 at 09:00; Stop 09/22/18 at 16:27; Status DC Nicotine (Nicoderm Cq 21mg) 1 patch DAILY TD Last administered on 09/24/18 09:21; Start 09/17/18 at 09:00 Pantoprazole Sodium (Protonix) 40 mg BID PO Last administered on 09/24/18 09:21; Start 09/17/18 at 21:00 Pantoprazole Sodium (Protonix) 40 mg DAILY PO Last administered on 09/17/18at 08 :54; Start 09/17/18 at 09:00; Stop 09/17/18 at 12:58; Status DC Prednisone (Deltasone) 60 mg DAILY PO Last administered on 09/24/18 09:20; Start 09/17/18 at 09:00 Rivaroxaban (Xarelto) 20 mg DAILY@18 PO Last administered on 09/23/18 17:31; Start 09/16/18 at 18:00 Senna (Senokot) 1 tab QHS PO Last administered on 09/20/18at 22:14; Start 09/16/18 at 21:00; Stop 09/21/18 at 19:45; Status DC Senna (Senokot) 2 tab QHS PO Last administered on 09/23/18 21:16; Start 09/21/18 at 21:00 Simethicone (Mylicon) 80 mg TID PO Last administered on 09/24/18 09:21; Start 09/17/18 at 16:00 Trimethoprim/ Sulfamethoxazole (Bactrim Ds, Septra Ds 160mg/ 800mg) 1 tab MoWeFr@09 PO Last administered on 09/23/18 09:00; Start 09/21/18 at 09:00 LEYDI LAUREANO MD Sep 24, 2018 11:34
[2018-09-24 12:00] LABS: ALBUMIN 0.38 GM/DL (3.29-5.55); ALBUMIN % 2.9 % (55.8-66.1); ALPHA-1-GLOBULIN % 50.5 % (2.9-4.9); ALPHA-2-GLOBULINS 0.38 GM/DL (0.42-0.99); ALPHA-2-GLOBULINS % 0.3 % (7.1-11.8); BETA-1-GLOBULINS % 5.7 % (4.7-7.2); BETA-2-GLOBULINS 0.84 GM/DL (0.19-0.55); GAMMA GLOBULIN % 16.3 % (11.1-18.8)
[2018-09-24 14:00] VITALS: BP 104/60
[2018-09-24] MEDS: RIVAROXABAN 20 MG TAB (XARELTO) PO SCH (17:14)
[2018-09-24 20:00] VITALS: BP 110/63
[2018-09-24] MEDS: AMITRIPTYLINE 50 MG TAB PO SCH (20:26)
[2018-09-24] MEDS: SENNA 8.6 MG TAB (SENOKOT) PO SCH (20:26)
[2018-09-24] MEDS: NORCO, ANEXSIA 5/325MG TABLET (HYDROcodone/ACETAMINOPHEN) PO PRN (20:27)
[2018-09-24] MEDS: LOSARTAN 25 MG TAB PO SCH (20:30)
[2018-09-25 06:00] VITALS: BP 135/93
[2018-09-25] MEDS: IPRATROPIUM 0.5MG/ALBUTEROL 2.5MG INH SOL UD 3ML (DUONEB)(J7620) NEB SCH ×3 (07:07→18:16)
[2018-09-25 09:18] LABS: BASO % 0.1 % (0.0-1.0); EOS % 0.1 % (0.0-3.0); HEMATOCRIT 36.8 % (42.0-52.0); HEMOGLOBIN 12.6 g/dl (13.5-17.5); LYMPH % 19.9 % (24.0-44.0); MEAN CORPUSCULAR HEMOGLOBIN 33.2 pg (27.0-33.0); MEAN CORPUSCULAR HGB CONC 34.2 g/dl (32.0-36.5); MEAN CORPUSCULAR VOLUME 97.1 fl (80.0-96.0); MONO # 0.9 10^3/uL (0.0-0.8); NEUTROPHILS # 10.9 10^3/uL (1.8-7.7); NEUTROPHILS % 73.2 % (36.0-66.0); PLATELET COUNT, AUTOMATED 355 10^3/uL (150-450); RED BLOOD COUNT 3.79 10^6/uL (4.30-6.10); WHITE BLOOD COUNT 14.8 10^3/uL (4.0-10.0)
[2018-09-25] MEDS: GABAPENTIN 400 MG CAP PO SCH ×2 (09:22→20:36)
[2018-09-25] MEDS: predniSONE 20 MG TAB PO SCH (09:22)
[2018-09-25] MEDS: FOLIC ACID 1 MG TAB PO SCH (09:22)
[2018-09-25] MEDS: PANTOPRAZOLE 40MG TAB (PROTONIX) PO SCH ×2 (09:22→20:35)
[2018-09-25] MEDS: BACTRIM 160MG/800MG DS TAB PO SCH (09:22)
[2018-09-25] MEDS: SIMETHICONE 80 MG CHEW TAB PO SCH ×3 (09:23→20:35)
[2018-09-25] MEDS: DOCUSATE SODIUM 100 MG CAP PO SCH ×3 (09:23→20:35)
[2018-09-25] MEDS: NICOTINE 21MG/24HR 1 EA TRANSDERMAL TD SCH (09:23)
[2018-09-25] MEDS: CARVedilol 3.125 MG TAB PO SCH ×2 (09:23→20:49)
[2018-09-25 09:35] LABS: BLOOD UREA NITROGEN 19 MG/DL (7-18); CALCIUM LEVEL 8.2 MG/DL (8.5-10.1); CARBON DIOXIDE LEVEL 28 MEQ/L (21-32); CHLORIDE LEVEL 108 MEQ/L (98-107); CREATININE FOR GFR 1.09 MG/DL (0.70-1.30); GLOMERULAR FILTRATION RATE > 60.0 (>56); GLUCOSE, FASTING 86 MG/DL (70-100); POTASSIUM SERUM 3.4 MEQ/L (3.5-5.1); SODIUM LEVEL 142 MEQ/L (136-145)
[2018-09-25] MEDS ORDERED: POTASSIUM CHLORIDE 10 MEQ SR TABLET PO ONE (11:30)
--- NOTE | 2018-09-25 11:35 | IPNPDOC ---
PM&R Progress Note DATE OF SERVICE: Sep 25, 2018 Sales Office Assistant Progress Note Subjective: Patient wondering about his BP meds and is concerned he has been running low. REVIEW OF SYSTEMS: The following is a completed review of systems and has been reviewed. Review of systems otherwise unremarkable. PAIN: Patient self reports tingling and burning in his feet and legs EYES: denies recent vision changes EARS, NOSE, & THROAT: no rhinorrhea, denies dysphagia CARDIOVASCULAR: denies chest pain or palpitations PULMONARY: Negative. Denies shortness of breath, +cough GASTROINTESTINAL:no constipation or diarrhea GENITOURINARY:denies dysuria or incontinence MUSCULOSKELETAL: Bilat LE>UE weakness NEUROLOGICAL: paresthesias SKIN: no rash PSYCHIATRIC: Unremarkable All other review of systems found to be negative. PHYSICAL EXAMINATION: VITAL SIGNS: Please see below. GENERAL: Pleasant and cooperative. No acute distress. HEENT: PERRL. Extraocular movements intact. Clear conjunctiva CARDIOVASCULAR: Regular rate and rhythm. No murmurs, rubs, or gallops LUNGS: Mostly clear to auscultation bilaterally. No wheezes. + rhonchi ABDOMEN: Soft, nontender, mildly distended. Positive bowel sounds. Normal active bowel sounds NEUROLOGICAL: Alert and oriented times three. Cranial nerves II through XII grossly intact. Sensation diminished to light touch in bilater LE and bila hands depressed reflexes throughout +bilat essential tremor in UE (improving) EXTREMITIES: 4\5 strength bilateral upper extremities. 4\5 strength right lower extremity. 4/5 strength in left lower extremity. 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 Neuro: s/p recent recurrences of GBS with IVIG in July and August, now s/p IV Solumedrol infusion- c/u on prednisone, monitor for worsening neurological picture -will need outpatient neuro follow-up -c/u gabapentin and Elavil for neuropathic pain 3. Cardio: pmh paroxysmal afib, Amiodarone recently d/c'd, c/u on Carvedilol and Xarelto and will need outpatient follow-up with cardiology -pmh HTN- HCTZ d/laura for low BPs, will d/c Losartan as well, c/u beta-flaquito- medicine following 4. Resp: pmh smoker with cough, CXR negative for acute disease -c/u guaianesin and breathing treatments 5. GI ppx: Protonix BID while on steroids, FOBT positive, no signs of active bleed will monitor H/H 12.6 today and refer to outpatient GI -bowel movements improving on regimen 6. : monitor PVRs 7. DVT ppx: On xarelto for Afib 8. ID: leukocytosis most likely from steroid use, will discuss taper schedule with neurology 7. Dispo: 10/16/18, progressing towards goals to home, goal is be Mod-I household ambulator with RW Allergies Coded Allergies: lisinopril (Verified Adverse Reaction, Intermediate, INCREASES POTASSIUM LEVELS, 08/13/18) Vital Signs Vital Signs Date Time Temp Pulse Resp B/P (MAP) Pulse Ox O2 Delivery O2 Flow Rate FiO2 09/25/18 09:23 96 135/93 09/25/18 06:00 97.1 18 97 Laboratory Data CBC/BMP Laboratory Tests 09/25/18 08:59 Red Blood Count 3.79 L, Mean Corpuscular Volume 97.1 H, Mean Corpuscular Hemoglobin 33.2 H, Mean Corpuscular Hemoglobin Concent 34.2, Red Cell Distribution Width 14.5, Neutrophils (%) (Auto) 73.2 H, Lymphocytes (%) (Auto) 19.9 L, Monocytes (%) (Auto) 6.0 H, Eosinophils (%) (Auto) 0.1, Basophils (%) (Auto) 0.1, Neutrophils # (Auto) 10.9 H, Lymphocytes # (Auto) 3.0, Monocytes # (Auto) 0.9 H, Eosinophils # (Auto) 0.0, Basophils # (Auto) 0.0, Calcium Level 8.2 L Labs 24H Laboratory Tests 2 09/25/18 08:59: Immature Granulocyte % (Auto) 0.7, White Blood Count 14.8H, Red Blood Count 3.79L, Hemoglobin 12.6L, Hematocrit 36.8L, Mean Corpuscular Volume 97.1H, Mean Corpuscular Hemoglobin 33.2H, Mean Corpuscular Hemoglobin Concent 34.2, Red Cell Distribution Width 14.5, Platelet Count 355, Neutrophils (%) (Auto) 73.2H, Ly mphocytes (%) (Auto) 19.9L, Monocytes (%) (Auto) 6.0H, Eosinophils (%) (Auto) 0.1, Basophils (%) (Auto) 0.1, Neutrophils # (Auto) 10.9H, Lymphocytes # (Auto) 3.0, Monocytes # (Auto) 0.9H, Eosinophils # (Auto) 0.0, Basophils # (Auto) 0.0, Nucleated Red Blood Cells % (auto) 0.0, Anion Gap 6L, Glomerular Filtration Rate > 60.0, Blood Urea Nitrogen 19H, Creatinine 1.09, Sodium Level 142, Potassium Level 3.4L, Chloride Level 108H, Carbon Dioxide Level 28, Calcium Level 8.2L Microbiology Microbiology 09/22/18 Stool Occult Blood (QUINCY) - Final, Complete 09/21/18 Stool Occult Blood (QUINCY) - Final, Complete Current Medications Current Medications Current Medications Acetaminophen/ Hydrocodone Bitart ([place], Anexsia 5/325) 1 tab Q4HP PRN PO MODERATE PAIN (PS 5-7) Last administered on 09/24/18at 20:27; Start 09/16/18 at 14:45 Albuterol/ Ipratropium (Duoneb (Ipr 0.5mg/Alb 2.5mg)) 3 ml RTID NEB Last administered on 09/25/18at 07:07; Start 09/16/18 at 20:00 Amitriptyline HCl (Elavil) 50 mg QHS PO Last administered on 09/24/18at 20:26; Start 09/16/18 at 21:00 Carvedilol (COReg) 3.125 mg BID PO Last administered on 09/25/18at 09:23; Start 09/22/18 at 21:00 Carvedilol (COReg) 12.5 mg BID PO Last administered on 09/21/18at 21:20; Start 09/19/18 at 21:00; Stop 09/22/18 at 14:01; Status DC Carvedilol (COReg) 25 mg BID PO Last administered on 09/19/18 08:30; Start 09/16/18 at 21:00; Stop 09/19/18 at 14:18; Status DC Docusate Sodium (Colace) 100 mg BID PO Last administered on 09/21/18 08:40; Start 09/16/18 at 21:00; Stop 09/21/18 at 19:45; Status DC Docusate Sodium (Colace) 100 mg TID PO Last administered on 09/25/18 09:23; Start 09/21/18 at 21:00 Folic Acid (Folic Acid) 1 mg DAILY PO Last administered on 09/25/18 09:22; Start 09/17/18 at 09:00 Gabapentin (Neurontin) 800 mg DAILY PO Last administered on 09/25/18 09:22; Start 09/17/18 at 09:00 Gabapentin (Neurontin) 1,600 mg QHS PO Last administered on 09/24/18 20:25; Start 09/16/18 at 21:00 Hydrochlorothiazide (Hydrodiuril) 12.5 mg DAILY PO Last administered on 09/18/18 08:43; Start 09/17/18 at 09:00; Stop 09/18/18 at 11:43; Status DC Losartan Potassium (Cozaar) 25 mg QHS PO Last administered on 09/23/18 21:17; Start 09/16/18 at 21:00; Stop 09/25/18 at 10:54; Status DC Methotrexate (Folex) 7.5 mg Th@09 PO Last administered on 09/24/18at 09:20; Start 09/17/18 at 09:00 Miscellaneous (Unresolved Clarification Entry) SEE LABEL COMMENTS DAILY XX ; Start 09/22/18 at 09:00; Stop 09/22/18 at 15:14; Status DC Miscellaneous (Unresolved Clarification Entry) SEE LABEL COMMENTS DAILY XX ; Start 09/22/18 at 09:00; Stop 09/22/18 at 16:27; Status DC Nicotine (Nicoderm Cq 21mg) 1 patch DAILY TD Last administered on 09/25/18 09:23; Start 09/17/18 at 09:00 Pantoprazole Sodium (Protonix) 40 mg BID PO Last administered on 09/25/18 09:22; Start 09/17/18 at 21:00 Pantoprazole Sodium (Protonix) 40 mg DAILY PO Last administered on 09/17/18 08:54; Start 09/17/18 at 09:00; Stop 09/17/18 at 12:58; Status DC Prednisone (Deltasone) 60 mg DAILY PO Last administered on 09/25/18 09:22; Start 09/17/18 at 09:00 Rivaroxaban (Xarelto) 20 mg DAILY@18 PO Last administered on 09/24/18at 17:14; Start 09/16/18 at 18:00 Senna (Senokot) 1 tab QHS PO Last administered on 09/20/18 22:14; Start 09/16/18 at 21:00; Stop 09/21/18 at 19:45; Status DC Senna (Senokot) 2 tab QHS PO Last administered on 09/24/18at 20:26; Start 09/21/18 at 21:00 Simethicone (Mylicon) 80 mg TID PO Last administered on 09/25/18 09:23; Start 09/17/18 at 16:00 Trimethoprim/ Sulfamethoxazole (Bactrim Ds, Septra Ds 160mg/ 800mg) 1 tab MoWeFr @09 PO Last administered on 09/25/18 09:22; Start 09/21/18 at 09:00 LEYDI LAUREANO MD Sep 25, 2018 11:35
[2018-09-25 14:00] VITALS: BP 112/75
[2018-09-25] MEDS: RIVAROXABAN 20 MG TAB (XARELTO) PO SCH (17:35)
[2018-09-25 20:00] VITALS: BP 104/71
[2018-09-25] MEDS: AMITRIPTYLINE 50 MG TAB PO SCH (20:35)
[2018-09-25] MEDS: SENNA 8.6 MG TAB (SENOKOT) PO SCH (20:35)
[2018-09-26 06:00] VITALS: BP 113/85
[2018-09-26] MEDS: IPRATROPIUM 0.5MG/ALBUTEROL 2.5MG INH SOL UD 3ML (DUONEB)(J7620) NEB SCH ×3 (07:29→20:07)
[2018-09-26 07:43] LABS: BASO % 0.1 % (0.0-1.0); EOS % 0.3 % (0.0-3.0); HEMATOCRIT 35.7 % (42.0-52.0); HEMOGLOBIN 12.5 g/dl (13.5-17.5); LYMPH # 2.5 10^3/uL (1.5-4.5); LYMPH % 22.6 % (24.0-44.0); MEAN CORPUSCULAR HEMOGLOBIN 34.7 pg (27.0-33.0); MEAN CORPUSCULAR VOLUME 99.2 fl (80.0-96.0); MONO # 0.7 10^3/uL (0.0-0.8); MONO % 6.5 % (0.0-5.0); NEUTROPHILS # 7.8 10^3/uL (1.8-7.7); NEUTROPHILS % 69.6 % (36.0-66.0); PLATELET COUNT, AUTOMATED 333 10^3/uL (150-450); WHITE BLOOD COUNT 11.1 10^3/uL (4.0-10.0)
[2018-09-26 07:59] LABS: BLOOD UREA NITROGEN 18 MG/DL (7-18); CALCIUM LEVEL 7.8 MG/DL (8.5-10.1); CARBON DIOXIDE LEVEL 27 MEQ/L (21-32); CHLORIDE LEVEL 110 MEQ/L (98-107); CREATININE FOR GFR 0.82 MG/DL (0.70-1.30); GLOMERULAR FILTRATION RATE > 60.0 (>56); GLUCOSE, FASTING 75 MG/DL (70-100); POTASSIUM SERUM 3.7 MEQ/L (3.5-5.1); SODIUM LEVEL 143 MEQ/L (136-145)
[2018-09-26 08:59] LABS: ALBUMIN 2.1 GM/DL (3.2-5.2); ALT/SGPT 25 U/L (12-78); BILIRUBIN,TOTAL 0.2 MG/DL (0.2-1.0); MAGNESIUM LEVEL 1.9 MG/DL (1.8-2.4); TOTAL PROTEIN 5.1 GM/DL (6.4-8.2)
[2018-09-26] MEDS: FOLIC ACID 1 MG TAB PO SCH (09:03)
[2018-09-26] MEDS: predniSONE 20 MG TAB PO SCH (09:03)
[2018-09-26] MEDS: PANTOPRAZOLE 40MG TAB (PROTONIX) PO SCH ×2 (09:03→20:32)
[2018-09-26] MEDS: NICOTINE 21MG/24HR 1 EA TRANSDERMAL TD SCH (09:03)
[2018-09-26] MEDS: SIMETHICONE 80 MG CHEW TAB PO SCH ×3 (09:04→20:33)
[2018-09-26] MEDS: CARVedilol 3.125 MG TAB PO SCH ×2 (09:04→20:32)
[2018-09-26] MEDS: GABAPENTIN 400 MG CAP PO SCH ×2 (09:04→20:33)
[2018-09-26] MEDS: DOCUSATE SODIUM 100 MG CAP PO SCH ×3 (09:04→20:32)
--- NOTE | 2018-09-26 11:01 | IPNPDOC ---
Text Note Date of Service The patient was seen on 09/26/18. NOTE Subjective: Patient is a 58-year-old male with PMHx of HTN, Paroxysmal A. fib, Guillain-Carlin syndrome , who presented to the emergency room on 09/09/2018 with complaints of worsening weakness and loss of sensation of his bilateral lower legs. Patient was admitted to the medical floor for further evaluation and treatment and was subsequently changed position to acute rehabilitation unit for further rehabilitation on 09/16/2018 Patient was seen and examined at the bedside. Patient reports that he can significantly better. Has been progressing with physical therapy. Denies chest pain, shortness of breath, palpitations. Denies nausea, vomiting, abdominal pain, has been having regular bowel movements. Denies any urinary discomfort. 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 and new diagnosis of (CIDP)chronic inflammatory demyelinating polyneuropathy - c/w Methotrexate (+ Folic Acid), Gabapentin, Amitriptyline - c/w Prednisone - c/w Physical therapy Leukocytosis - Appears to be improving - No evidence of infection on ROS - will continue to monitor for now Hypertension - BP better controlled - c/w Carvedilol Paroxysmal atrial fibrillation - c/w rate control with Carvedilol - c/w full anticoagulation with Xarelto Nicotine dependence - c/w Nicotine patch GI prophylaxis - c/w Protonix DVT prophylaxis - c/w full anticoagulation with Xarelto VS,Fishbone, I+O VS, Fishbone, I+O Laboratory Tests 09/26/18 07:05 Red Blood Count 3.60 L, Mean Corpuscular Volume 99.2 H, Mean Corpuscular Hemoglobin 34.7 H, Mean Corpuscular Hemoglobin Concent 35.0, Red Cell Distribution Width 14.5, Neutrophils (%) (Auto) 69.6 H, Lymphocytes (%) (Auto) 22.6 L, Monocytes (%) (Auto) 6.5 H, Eosinophils (%) (Auto) 0.3, Basophils (%) (Auto) 0.1, Neutrophils # (Auto) 7.8 H, Lymphocytes # (Auto) 2.5, Monocytes # (Auto) 0.7, Eosinophils # (Auto) 0.0, Basophils # (Auto) 0.0, Calcium Level 7.8 L, Aspartate Amino Transf (AST/SGOT) 12, Alanine Aminotransferase (ALT/SGPT) 25, Alkaline Phosphatase 57, Total Bilirubin 0.2, Total Protein 5.1 L, Albumin 2.1 L Vital Signs Date Time Temp Pulse Resp B/P (MAP) Pulse Ox O2 Delivery O2 Flow Rate FiO2 09/26/18 09:04 93 113/85 09/26/18 06:00 99.1 16 96 I&O- Last 24 Hours up to 6 AM 09/26/18 06:00 Intake Total 1260 ml Output Total 850 ml Balance 410 ml ANASTACIA REYES MD Sep 26, 2018 11:01
[2018-09-26 14:00] VITALS: BP 113/69
[2018-09-26] MEDS: RIVAROXABAN 20 MG TAB (XARELTO) PO SCH (17:33)
[2018-09-26 20:00] VITALS: BP 110/72
[2018-09-26] MEDS: AMITRIPTYLINE 50 MG TAB PO SCH (20:33)
[2018-09-26] MEDS: SENNA 8.6 MG TAB (SENOKOT) PO SCH (20:33)
[2018-09-26] MEDS: NORCO, ANEXSIA 5/325MG TABLET (HYDROcodone/ACETAMINOPHEN) PO PRN (20:34)
[2018-09-27 06:00] VITALS: BP 145/88
[2018-09-27] MEDS: predniSONE 20 MG TAB PO SCH (08:51)
[2018-09-27] MEDS: GABAPENTIN 400 MG CAP PO SCH ×2 (08:51→20:26)
[2018-09-27] MEDS: DOCUSATE SODIUM 100 MG CAP PO SCH ×3 (08:51→20:26)
[2018-09-27] MEDS: SIMETHICONE 80 MG CHEW TAB PO SCH ×3 (08:52→20:26)
[2018-09-27] MEDS: CARVedilol 3.125 MG TAB PO SCH ×2 (08:52→20:26)
[2018-09-27] MEDS: FOLIC ACID 1 MG TAB PO SCH (08:52)
[2018-09-27] MEDS: PANTOPRAZOLE 40MG TAB (PROTONIX) PO SCH ×2 (08:52→20:26)
[2018-09-27] MEDS: NICOTINE 21MG/24HR 1 EA TRANSDERMAL TD SCH (08:52)
--- NOTE | 2018-09-27 10:21 | IPNPDOC ---
Text Note Date of Service The patient was seen on 09/27/18. NOTE Subjective: Patient is a 58-year-old male with PMHx of HTN, Paroxysmal A. fib, Guillain-Carlin syndrome , who presented to the emergency room on 09/09/2018 with complaints of worsening weakness and loss of sensation of his bilateral lower legs. Patient was admitted to the medical floor for further evaluation and treatment and was subsequently changed position to acute rehabilitation unit for further rehabilitation on 09/16/2018 Patient was seen and examined at the bedside. Patient reports that his night was uneventful has been working with physical therapy. Physical therapy was present in the room. Patient denies chest pain, shortness of breath, cough or palpitations. Denies nausea, vomiting, abdominal pain, diarrhea or discomfort with urination. 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 and new diagnosis of (CIDP) Chronic inflammatory demyelinating polyneuropathy - c/w Methotrexate (+ Folic Acid), Gabapentin, Amitriptyline - c/w Prednisone - c/w Physical therapy Leukocytosis - Appears to be improving - Again upon review of systems patient does not report any signs of infection - Remains afebrile and hemodynamically stable - No antibiotics are indicated at this time Hypertension - BP moderately controlled - c/w Carvedilol Paroxysmal atrial fibrillation - c/w rate control with Carvedilol - c/w full anticoagulation with Xarelto Nicotine dependence - c/w Nicotine patch GI prophylaxis - c/w Protonix DVT prophylaxis - c/w full anticoagulation with Xarelto VS,Fishbone, I+O VS, Fishbone, I+O Vital Signs Date Time Temp Pulse Resp B/P (MAP) Pulse Ox O2 Delivery O2 Flow Rate FiO2 09/27/18 08:52 89 145/88 09/27/18 06:00 98.0 18 93 I&O- Last 24 Hours up to 6 AM 09/27/18 06:00 Intake Total 1280 ml Output Total 1570 ml Balance -290 ml ANASTACIA REYES MD Sep 27, 2018 10:21
[2018-09-27] MEDS: IPRATROPIUM 0.5MG/ALBUTEROL 2.5MG INH SOL UD 3ML (DUONEB)(J7620) NEB SCH ×3 (11:25→20:15)
[2018-09-27 14:00] VITALS: BP 99/59
[2018-09-27] MEDS: RIVAROXABAN 20 MG TAB (XARELTO) PO SCH (17:37)
[2018-09-27 20:00] VITALS: BP 125/80
[2018-09-27] MEDS: SENNA 8.6 MG TAB (SENOKOT) PO SCH (20:26)
[2018-09-27] MEDS: AMITRIPTYLINE 50 MG TAB PO SCH (20:26)
[2018-09-27] MEDS: NORCO, ANEXSIA 5/325MG TABLET (HYDROcodone/ACETAMINOPHEN) PO PRN (20:35)
[2018-09-28 05:40] VITALS: BP 120/82
[2018-09-28] MEDS: IPRATROPIUM 0.5MG/ALBUTEROL 2.5MG INH SOL UD 3ML (DUONEB)(J7620) NEB SCH ×3 (07:20→20:46)
[2018-09-28] MEDS: BACTRIM 160MG/800MG DS TAB PO SCH (09:13)
[2018-09-28] MEDS: DOCUSATE SODIUM 100 MG CAP PO SCH ×3 (09:13→21:03)
[2018-09-28] MEDS: PANTOPRAZOLE 40MG TAB (PROTONIX) PO SCH ×2 (09:13→21:05)
[2018-09-28] MEDS: FOLIC ACID 1 MG TAB PO SCH (09:13)
[2018-09-28] MEDS: predniSONE 20 MG TAB PO SCH (09:14)
[2018-09-28] MEDS: SIMETHICONE 80 MG CHEW TAB PO SCH ×3 (09:14→21:03)
[2018-09-28] MEDS: GABAPENTIN 400 MG CAP PO SCH ×2 (09:14→21:05)
[2018-09-28] MEDS: CARVedilol 3.125 MG TAB PO SCH ×2 (09:14→21:05)
[2018-09-28] MEDS: NICOTINE 21MG/24HR 1 EA TRANSDERMAL TD SCH (09:14)
[2018-09-28 14:00] VITALS: BP 125/90
--- NOTE | 2018-09-28 16:13 | IPNPDOC ---
Text Note Date of Service The patient was seen on 09/28/18. NOTE HPI Patient is a 58-year-old male, past medical history significant for hypertension, paroxysmal atrial fibrillation, Guillain-Carlin syndrome, presenting to the hospital on account of acute worsening ascending paresthesias and paralysis. After medical stabilization, he was discharged to inpatient rehabilitation unit. Events since last encounter Spouse at bedside at time of assessment. Patient is anxious about when he will be discharged home. Feels much better, able to ambulate further distances without assistance. Denies chest pain, chills, shortness of breath Physical Examination GENERAL: NAD SKIN : Warm, dry intact HEENT: Atraumatic, normocephalic, PERRL, moist mucous membrane CARDIOVASCULAR: Regular rate and rhythm, S1S2, no JVD, no edema, distal pulses + and palpable RESP: CTAB, no accessory muscle use noted ABDOMEN: BS+ non distended non tender MS: no joint deformities NEURO: Alert and oriented x 3, discoordinated limb activity PSYCH: no anxiety or agitation, appropriate mood and affect. Assessment and plan Guillain-Carlin syndrome -Presenting with acute exacerbation and new diagnosis of (CIDP)chronic inflammatory demyelinating polyneuropathy -rehabilitation by primary team -Continue prednisone, methotrexate, folic acid, gabapentin, amitriptyline Hypertension -Hypotensive -Coreg dose was adjusted and blood pressure better controlled -Continue to monitor and avoid hypotension Paroxysmal atrial fibrillation -Rate controlled with beta flaquito therapy -Continue Xarelto for anticoagulation therapy Nicotine dependence -Has been consulted on cessation -Continue nicotine patch DVT prophylaxis -Fully anticoagulated VS,Fishbone, I+O VS, Fishbone, I+O Vital Signs Date Time Temp Pulse Resp B/P (MAP) Pulse Ox O2 Delivery O2 Flow Rate FiO2 09/28/18 14:00 98.0 92 20 125/90 (102) 97 I&O- Last 24 Hours up to 6 AM 09/28/18 06:00 Intake Total 1020 ml Output Total 675 ml Balance 345 ml BHARAT CURRANP Sep 28, 2018 16:13
[2018-09-28] MEDS: RIVAROXABAN 20 MG TAB (XARELTO) PO SCH (17:37)
[2018-09-28 20:10] VITALS: BP 116/76
[2018-09-28] MEDS: SENNA 8.6 MG TAB (SENOKOT) PO SCH (21:03)
[2018-09-28] MEDS: NORCO, ANEXSIA 5/325MG TABLET (HYDROcodone/ACETAMINOPHEN) PO PRN (21:04)
[2018-09-28] MEDS: AMITRIPTYLINE 50 MG TAB PO SCH (21:05)
[2018-09-29 05:54] VITALS: BP 114/84
[2018-09-29] MEDS: IPRATROPIUM 0.5MG/ALBUTEROL 2.5MG INH SOL UD 3ML (DUONEB)(J7620) NEB SCH ×2 (07:22→13:19)
[2018-09-29] MEDS: DOCUSATE SODIUM 100 MG CAP PO SCH (09:06)
[2018-09-29] MEDS: SIMETHICONE 80 MG CHEW TAB PO SCH (09:06)
[2018-09-29] MEDS: GABAPENTIN 400 MG CAP PO SCH (09:06)
[2018-09-29] MEDS: FOLIC ACID 1 MG TAB PO SCH (09:06)
[2018-09-29] MEDS: PANTOPRAZOLE 40MG TAB (PROTONIX) PO SCH (09:06)
[2018-09-29 09:07] VITALS: BP 125/82
[2018-09-29] MEDS: NICOTINE 21MG/24HR 1 EA TRANSDERMAL TD SCH (09:07)
[2018-09-29] MEDS: CARVedilol 3.125 MG TAB PO SCH (09:07)
[2018-09-29] MEDS: predniSONE 20 MG TAB PO SCH (09:07)
--- NOTE | 2018-09-29 10:31 | IPNPDOC ---
PM&R Progress Note DATE OF SERVICE: Sep 28, 2018 Customer Order Clerk Progress Note Subjective: Patient reports doing well with his room privileges at wheelchair level over the weekend and would like to go home as soon as possible to oversee the building of his ramp. REVIEW OF SYSTEMS: The following is a completed review of systems and has been reviewed. Review of systems otherwise unremarkable. PAIN: Patient self reports tingling and burning in his feet and legs EYES: denies recent vision changes EARS, NOSE, & THROAT: no rhinorrhea, denies dysphagia CARDIOVASCULAR: denies chest pain or palpitations PULMONARY: Negative. Denies shortness of breath, cough improving GASTROINTESTINAL:no constipation or diarrhea GENITOURINARY:denies dysuria or incontinence MUSCULOSKELETAL: Bilat LE>UE weakness NEUROLOGICAL: paresthesias SKIN: no rash PSYCHIATRIC: Unremarkable All other review of systems found to be negative. PHYSICAL EXAMINATION: VITAL SIGNS: Please see below. GENERAL: Pleasant and cooperative. No acute distress. HEENT: PERRL. Extraocular movements intact. Clear conjunctiva CARDIOVASCULAR: Regular rate and rhythm. No murmurs, rubs, or gallops LUNGS: Mostly clear to auscultation bilaterally. No wheezes. + rhonchi ABDOMEN: Soft, nontender, mildly distended. Positive bowel sounds. Normal active bowel sounds NEUROLOGICAL: Alert and oriented times three. Cranial nerves II through XII grossly intact. Sensation diminished to light touch in bilater LE and bila hands depressed reflexes throughout +bilat essential tremor in UE (improving) EXTREMITIES: 4\5 strength bilateral upper extremities. 4\5 strength right lower extremity. 4/5 strength in left lower extremity. 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 Neuro: s/p recent recurrences of GBS with IVIG in July and August, now s/p IV Solumedrol infusion- c/u on prednisone, monitor for worsening neurological picture -will need outpatient neuro follow-up, currently being followed by Dr. Lord during his ARU course -c/u gabapentin and Elavil for neuropathic pain 3. Cardio: pmh paroxysmal afib, Amiodarone recently d/c'd, c/u on Carvedilol and Xarelto and will need outpatient follow-up with cardiology -pmh HTN- HCTZ d/laura for low BPs, d/c'd Losartan as well, c/u carvedilol- medicine following 4. Resp: pmh smoker with cough, CXR negative for acute disease -c/u guaianesin and breathing treatments 5. GI ppx: Protonix BID while on steroids, FOBT positive, no signs of active bleed will monitor H/H stable, will refer to outpatient GI -bowel movements improving on regimen 6. : monitor PVRs 7. DVT ppx: On xarelto for Afib 8. ID: leukocytosis most likely from steroid use, will discuss taper schedule with neurology -he is on Bactrim for PCP suppression therapy while on methotrexate as steroid- sparing agent as per Dr. Lord's consult note from inpatient and as personally discussed with Dr. oLrd 7. Dispo: 10/16/18, progressing towards goals to home, goal is be Mod-I household ambulator with RW Allergies Coded Allergies: lisinopril (Verified Adverse Reaction, Intermediate, INCREASES POTASSIUM LEVELS, 08/13/18) Vital Signs Vital Signs Date Time Temp Pulse Resp B/P (MAP) Pulse Ox O2 Delivery O2 Flow Rate FiO2 09/29/18 09:07 76 125/82 09/29/18 05:54 97.3 18 97 Microbiology Microbiology 09/22/18 Stool Occult Blood (QUINCY) - Final, Complete 09/21/18 Stool Occult Blood (QUINCY) - Final, Complete Current Medications Current Medications Current Medications Acetaminophen/ Hydrocodone Bitart ([place], Anexsia 5/325) 1 tab Q4HP PRN PO MODERATE PAIN (PS 5-7) Last administered on 09/28/18at 21:04; Start 09/16/18 at 14:45 Albuterol/ Ipratropium (Duoneb (Ipr 0.5mg/Alb 2.5mg)) 3 ml RTID NEB Last administered on 09/28/18at 20:46; Start 09/16/18 at 20:00 Amitriptyline HCl (Elavil) 50 mg QHS PO Last administered on 09/28/18 21:05; Start 09/16/18 at 21:00 Carvedilol (COReg) 3.125 mg BID PO Last administered on 09/29/18 09:07; Start 09/22/18 at 21:00 Carvedilol (COReg) 12.5 mg BID PO Last administered on 09/21/18 21:20; Start 09/19/18 at 21:00; Stop 09/22/18 at 14:01; Status DC Carvedilol (COReg) 25 mg BID PO Last administered on 09/19/18 08:30; Start 09/16/18 at 21:00; Stop 09/19/18 at 14:18; Status DC Docusate Sodium (Colace) 100 mg BID PO Last administered on 09/21/18 08:40; Start 09/16/18 at 21:00; Stop 09/21/18 at 19:45; Status DC Docusate Sodium (Colace) 100 mg TID PO Last administered on 09/29/18 09:06; Start 09/21/18 at 21:00 Folic Acid (Folic Acid) 1 mg DAILY PO Last administered on 09/29/18 09:06; Start 09/17/18 at 09:00 Gabapentin (Neurontin) 800 mg DAILY PO Last administered on 09/29/18 09:06; Start 09/17/18 at 09:00 Gabapentin (Neurontin) 1,600 mg QHS PO Last administered on 09/28/18 21:05; Start 09/16/18 at 21:00 Hydrochlorothiazide (Hydrodiuril) 12.5 mg DAILY PO Last administered on 09/18/18 08:43; Start 09/17/18 at 09:00; Stop 09/18/18 at 11:43; Status DC Losartan Potassium (Cozaar) 25 mg QHS PO Last administered on 09/23/18 21:17; Start 09/16/18 at 21:00; Stop 09/25/18 at 10:54; Status DC Methotrexate (Folex) 7.5 mg @ PO Last administered on 09/24/18at 09:20; Start 09/17/18 at 09:00 Miscellaneous (Unresolved Clarification Entry) SEE LABEL COMMENTS DAILY XX ; Start 09/22/18 at 09:00; Stop 09/22/18 at 15:14; Status DC Miscellaneous (Unresolved Clarification Entry) SEE LABEL COMMENTS DAILY XX ; Start 09/22/18 at 09:00; Stop 09/22/18 at 16:27; Status DC Miscellaneous (Unresolved Clarification Entry) SEE LABEL COMMENTS DAILY XX ; Start 09/27/18 at 09:00; Stop 09/27/18 at 14:30; Status DC Nicotine (Nicoderm Cq 21mg) 1 patch DAILY TD Last administered on 09/29/18 09:07; Start 09/17/18 at 09:00 Pantoprazole Sodium (Protonix) 40 mg BID PO Last administered on 09/29/18 09:06; Start 09/17/18 at 21:00 Pantoprazole Sodium (Protonix) 40 mg DAILY PO Last administered on 09/17/18 08:54; Start 09/17/18 at 09:00; Stop 09/17/18 at 12:58; Status DC Prednisone (Deltasone) 60 mg DAILY PO Last administered on 09/29/18 09:07; Start 09/17/18 at 09:00 Rivaroxaban (Xarelto) 20 mg DAILY@18 PO Last administered on 09/28/18 17:37; Start 09/16/18 at 18:00 Senna (Senokot) 1 tab QHS PO Last administered on 09/20/18 22:14; Start 09/16/18 at 21:00; Stop 09/21/18 at 19:45; Status DC Senna (Senokot) 2 tab QHS PO Last administered on 09/28/18 21:03; Start 09/21/18 at 21:00 Simethicone (Mylicon) 80 mg TID PO Last administered on 09/29/18 09:06; Start 09/17/18 at 16:00 Trimethoprim/ Sulfamethoxazole (Bactrim Ds, Septra Ds 160mg/ 800mg) 1 tab MoWeFr@09 PO Last administered on 09/28/18 09:13; Start 09/21/18 at 09:00 LEYDI LAUREANO MD Sep 29, 2018 10:31
--- NOTE | 2018-09-29 10:33 | IPNPDOC ---
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 REVIEW OF SYSTEMS: The following is a completed review of systems and has been reviewed. Review of systems otherwise unremarkable. PAIN: Patient self reports tingling and burning in his feet and legs EYES: denies recent vision changes EARS, NOSE, & THROAT: no rhinorrhea, denies dysphagia CARDIOVASCULAR: denies chest pain or palpitations PULMONARY: Negative. Denies shortness of breath, cough improving GASTROINTESTINAL:no constipation or diarrhea GENITOURINARY:denies dysuria or incontinence MUSCULOSKELETAL: Bilat LE>UE weakness NEUROLOGICAL: paresthesias SKIN: no rash PSYCHIATRIC: Unremarkable All other review of systems found to be negative. PHYSICAL EXAMINATION: VITAL SIGNS: Please see below. GENERAL: Pleasant and cooperative. No acute distress. HEENT: PERRL. Extraocular movements intact. Clear conjunctiva CARDIOVASCULAR: Regular rate and rhythm. No murmurs, rubs, or gallops LUNGS: Mostly clear to auscultation bilaterally. No wheezes. + rhonchi ABDOMEN: Soft, nontender, mildly distended. Positive bowel sounds. Normal active bowel sounds NEUROLOGICAL: Alert and oriented times three. Cranial nerves II through XII grossly intact. Sensation diminished to light touch in bilater LE and bila hands depressed reflexes throughout +bilat essential tremor in UE (improving) EXTREMITIES: 4\5 strength bilateral upper extremities. 4\5 strength right lower extremity. 4/5 strength in left lower extremity. 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 Neuro: s/p recent recurrences of GBS with IVIG in July and August, now s/p IV Solumedrol infusion- c/u on prednisone, monitor for worsening neurological picture, will taper from 60 mg prednisone to 40mg daily for 2 weeks to then continue on 30mg daily as outpatient until he is seen by Dr. Lord- discussed this regimen with Dr. Lord over the phone -will need outpatient neuro follow-up for LE EMG/NCS, currently being followed by Dr. Lord during his ARU course -c/u gabapentin and Elavil for neuropathic pain 3. Cardio: pmh paroxysmal afib, Amiodarone recently d/c'd, c/u on Carvedilol and Xarelto and will need outpatient follow-up with cardiology -pmh HTN- HCTZ d/laura for low BPs, d/c'd Losartan as well, c/u carvedilol- medicine following 4. Resp: pmh smoker with cough, CXR negative for acute disease -c/u guaianesin and breathing treatments 5. GI ppx: Protonix BID while on steroids, FOBT positive, no signs of active bleed will monitor H/H stable, will refer to outpatient GI -bowel movements improving on regimen 6. : monitor PVRs 7. DVT ppx: On xarelto for Afib 8. ID: leukocytosis most likely from steroid use, will discuss taper schedule with neurology -he is on Bactrim for PCP suppression therapy while on methotrexate as steroid- sparing agent as per Dr. Lord's consult note from inpatient and as personally discussed with Dr. Lord 7. Dispo: to home 09/29/18, patient requesting to go home sooner to over see his new ramp being built, he is safe from mobility standpoint from a wheelchair level and able to climb stairs with assistance from his who has been trained DME: Patient requires the use of a wheelchair to complete his MRADLs in a timely manner. Without a wheelchair he will be unable to complete his MRADLs. His home is wheelchair accessible, he agrees to use the device, and his is comfortable assisting him with the wheelchair. Allergies Coded Allergies: lisinopril (Verified Adverse Reaction, Intermediate, INCREASES POTASSIUM LEVELS, 08/13/18) Vital Signs Vital Signs Date Time Temp Pulse Resp B/P (MAP) Pulse Ox O2 Delivery O2 Flow Rate FiO2 09/29/18 09:07 76 125/82 09/29/18 05:54 97.3 18 97 Microbiology Microbiology 09/22/18 Stool Occult Blood (QUINCY) - Final, Complete 09/21/18 Stool Occult Blood (QUINCY) - Final, Complete Current Medications Current Medications Current Medications Acetaminophen/ Hydrocodone Bitart ([place], Anexsia 5/325) 1 tab Q4HP PRN PO MODERATE PAIN (PS 5-7) Last administered on 09/28/18 21:04; Start 09/16/18 at 14:45 Albuterol/ Ipratropium (Duoneb (Ipr 0.5mg/Alb 2.5mg)) 3 ml RTID NEB Last administered on 09/28/18 20:46; Start 09/16/18 at 20:00 Amitriptyline HCl (Elavil) 50 mg QHS PO Last administered on 09/28/18 21:05; Start 09/16/18 at 21:00 Carvedilol (COReg) 3.125 mg BID PO Last administered on 09/29/18 09:07; Start 09/22/18 at 21:00 Carvedilol (COReg) 12.5 mg BID PO Last administered on 09/21/18 21:20; Start 09/19/18 at 21:00; Stop 09/22/18 at 14:01; Status DC Carvedilol (COReg) 25 mg BID PO Last administered on 09/19/18 08:30; Start 09/16/18 at 21:00; Stop 09/19/18 at 14:18; Status DC Docusate Sodium (Colace) 100 mg BID PO Last administered on 09/21/18 08:40; Start 09/16/18 at 21:00; Stop 09/21/18 at 19:45; Status DC Docusate Sodium (Colace) 100 mg TID PO Last administered on 09/29/18 09:06; Start 09/21/18 at 21:00 Folic Acid (Folic Acid) 1 mg DAILY PO Last administered on 09/29/18 09:06; Start 09/17/18 at 09:00 Gabapentin (Neurontin) 800 mg DAILY PO Last administered on 09/29/18 09:06; Start 09/17/18 at 09:00 Gabapentin (Neurontin) 1,600 mg QHS PO Last administered on 09/28/18 21:05; Start 09/16/18 at 21:00 Hydrochlorothiazide (Hydrodiuril) 12.5 mg DAILY PO Last administered on 09/18/18at 08:43; Start 09/17/18 at 09:00; Stop 09/18/18 at 11:43; Status DC Losartan Potassium (Cozaar) 25 mg QHS PO Last administered on 09/23/18at 21:17; Start 09/16/18 at 21:00; Stop 09/25/18 at 10:54; Status DC Methotrexate (Folex) 7.5 mg Th@09 PO Last administered on 09/24/18at 09:20; Start 09/17/18 at 09:00 Miscellaneous (Unresolved Clarification Entry) SEE LABEL COMMENTS DAILY XX ; Start 09/22/18 at 09:00; Stop 09/22/18 at 15:14; Status DC Miscellaneous (Unresolved Clarification Entry) SEE LABEL COMMENTS DAILY XX ; Start 09/22/18 at 09:00; Stop 09/22/18 at 16:27; Status DC Miscellaneous (Unresolved Clarification Entry) SEE LABEL COMMENTS DAILY XX ; Start 09/27/18 at 09:00; Stop 09/27/18 at 14:30; Status DC Nicotine (Nicoderm Cq 21mg) 1 patch DAILY TD Last administered on 09/29/18 09:07; Start 09/17/18 at 09:00 Pantoprazole Sodium (Protonix) 40 mg BID PO Last administered on 09/29/18 09:06; Start 09/17/18 at 21:00 Pantoprazole Sodium (Protonix) 40 mg DAILY PO Last administered on 09/17/18at 08:54; Start 09/17/18 at 09:00; Stop 09/17/18 at 12:58; Status DC Prednisone (Deltasone) 60 mg DAILY PO Last administered on 09/29/18 09:07; Start 09/17/18 at 09:00 Rivaroxaban (Xarelto) 20 mg DAILY@18 PO Last administered on 09/28/18at 17:37; Start 09/16/18 at 18:00 Senna (Senokot) 1 tab QHS PO Last administered on 09/20/18at 22:14; Start 09/16/18 at 21:00; Stop 09/21/18 at 19:45; Status DC Senna (Senokot) 2 tab QHS PO Last administered on 09/28/18 21:03; Start 09/21/18 at 21:00 Simethicone (Mylicon) 80 mg TID PO Last administered on 09/29/18 09:06; Start 09/17/18 at 16:00 Trimethoprim/ Sulfamethoxazole (Bactrim Ds, Septra Ds 160mg/ 800mg) 1 tab MoWeFr@09 PO Last administered on 09/28/18 09:13; Start 09/21/18 at 09:00 LEYDI LAUREANO MD Sep 29, 2018 10:33
[2018-09-29 11:44] LABS: BASO % 0.2 % (0.0-1.0); EOS % 0.3 % (0.0-3.0); HEMATOCRIT 37.5 % (42.0-52.0); HEMOGLOBIN 12.8 g/dl (13.5-17.5); LYMPH # 2.3 10^3/uL (1.5-4.5); LYMPH % 19.6 % (24.0-44.0); MEAN CORPUSCULAR HGB CONC 34.1 g/dl (32.0-36.5); MEAN CORPUSCULAR VOLUME 99.5 fl (80.0-96.0); MONO # 0.8 10^3/uL (0.0-0.8); MONO % 7.2 % (0.0-5.0); NEUTROPHILS # 8.4 10^3/uL (1.8-7.7); NEUTROPHILS % 71.8 % (36.0-66.0); PLATELET COUNT, AUTOMATED 296 10^3/uL (150-450); RED BLOOD COUNT 3.77 10^6/uL (4.30-6.10); WHITE BLOOD COUNT 11.7 10^3/uL (4.0-10.0)
[2018-09-29 12:46] LABS: BLOOD UREA NITROGEN 21 MG/DL (7-18); CALCIUM LEVEL 8.5 MG/DL (8.5-10.1); CARBON DIOXIDE LEVEL 26 MEQ/L (21-32); CHLORIDE LEVEL 108 MEQ/L (98-107); CREATININE FOR GFR 0.96 MG/DL (0.70-1.30); GLOMERULAR FILTRATION RATE > 60.0 (>56); GLUCOSE, FASTING 84 MG/DL (70-100); SODIUM LEVEL 141 MEQ/L (136-145)
[2018-09-29 14:00] VITALS: BP 107/88
[2018-09-29] MEDS ORDERED: PRED20TA PO (14:10)
[2018-09-29] MEDS ORDERED: PANT40TA3 PO (14:10)
[2018-09-29] MEDS ORDERED: HYDR-4571 PO (14:10)
[2018-09-29] MEDS ORDERED: NICO21PAT TD (14:10)
[2018-09-29] MEDS ORDERED: CARV3.12 PO (14:10)
[2018-09-29] MEDS ORDERED: METH2.5T48 PO (14:10)
[2018-09-29] MEDS ORDERED: GABA-845 PO ×2 (14:10)
[2018-09-29] MEDS ORDERED: AMIT50TA PO (14:10)
[2018-09-29] MEDS ORDERED: XARE20TA PO (14:10)
[2018-09-29] MEDS ORDERED: SULF1TAB93 PO (14:10)
[2018-09-29] MEDS ORDERED: FOLI1TAB11 PO (14:10)
--- NOTE | 2018-09-29 20:45 | PMRDS ---
DATE OF ADMISSION: 09/16/2018 DATE OF DISCHARGE: 09/29/2018 CHIEF COMPLAINT/DISCHARGE DIAGNOSIS: CIDP. 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 At both points he was hospitalized for IVIG therapy for symptoms of ascending paresthesias and paralysis who again presented to [facility] ED on 09/09/2018 with similar symptoms unable to stand. He was evaluated by neurology who recommended IV Solu-Medrol and diagnosed him with CIDP. He reported worsening neuropathy symptoms. It was requested his amiodarone be changed as this can aggravate nerve pain. Brain MRI was performed which was unremarkable. He was taken off amiodarone and his Elavil dose was increased. He was evaluated by therapy, found to be well below his prior level of function and requiring assistance with bed mobility and inability to stand. He had leukocytosis deemed to be viral in nature and considered to be medically appropriate discharge to ARU on 09/16/2018. PAST MEDICAL HISTORY: As per HPI. HOSPITAL COURSE: The patient was admitted and enrolled in a comprehensive PT, OT, speech language pathology program. He received 24-hour nursing supervision and weekly team meetings were held to discuss his progress. For his diagnosis of CIDP he was unofficially followed by Dr. Lord during his hospital course who recommended maintaining him on prednisone and eventually tapered him to 40 mg by mouth daily beginning 09/30/2018 and recommended continuing steroids bearing methotrexate in addition to prophylactic Bactrim while on the methotrexate. The patient was found to have a positive fecal occult blood test, was maintained on Protonix twice a day while on the steroids and showed no signs of active bleeding with a stable hemoglobin and hematocrit during his hospital course with plans for outpatient followup with GI. His blood pressure medications were partially discontinued for low blood pressures and overall he made quick gains in physical and occasional therapy, was able to be modified independent from a wheelchair level and requested to go home earlier than originally planned in order to oversee the building of a ramp. His was trained for stair negotiation and short household distances with a rolling walker and he was deemed functionally and medically stable to return home at a wheelchair level. DISCHARGE MEDICATIONS: As per discharge instructions. FUNCTIONAL HISTORY UPON DISCHARGE: The patient was modified independent from a wheelchair level for all functional transfers, able to ambulate 150 feet contact guard, able to negotiate 12 stairs also contact guard. In occupational therapy he was contact guard for functional transfers and requiring assistance with dressing.
[2018-09-30] MEDS ORDERED: predniSONE 20 MG TAB PO SCH (09:00)
[2018-10-14] MEDS ORDERED: predniSONE 10 MG TAB PO SCH (09:00)
== END 2018-09-29 16:04 | disposition home health service (06) | DRG 96 ==
LOC: M PM&R 14:50
PROVIDERS: ADMIT Physical Medicine & Rehabilitation; ATTEND Physical Medicine & Rehabilitation
DX: G61.0 Guillain-Barre syndrome (principal); I10 Essential (primary) hypertension; I48.0 Paroxysmal atrial fibrillation; K59.00 Constipation, unspecified; F17.200 Nicotine dependence, unspecified, uncomplicated; Z79.52 Long term (current) use of systemic steroids; Z79.899 Other long term (current) drug therapy; Z79.01 Long term (current) use of anticoagulants; Z88.8 Allergy status to other drugs, medicaments and biological substances; I95.9 Hypotension, unspecified; D72.829 Elevated white blood cell count, unspecified

== ENCOUNTER → 2019-01-11 | Outpatient (REF) | payer MEDICARE ==
[~2019-01-11] MED LIST changes: -AZIT500T2 PO; +AZIT500T5 PO; +CARV3.12 PO; +HYDR-4571 PO; +NICO21PAT TD; -OMEP40CA2 PO; +OMEP40CA97 PO; +PANT40TA3 PO; +SULF1TAB93 PO
[2019-01-11 16:24] LABS: BASO # 0.1 10^3/uL (0.0-0.2); BASO % 0.9 % (0.0-1.0); EOS # 0.1 10^3/uL (0.0-0.5); EOS % 1.2 % (0.0-3.0); HEMATOCRIT 44.6 % (42.0-52.0); HEMOGLOBIN 14.3 g/dl (13.5-17.5); LYMPH # 2.2 10^3/uL (1.5-5.0); LYMPH % 24.1 % (24.0-44.0); MEAN CORPUSCULAR HEMOGLOBIN 30.4 pg (27.0-33.0); MEAN CORPUSCULAR HGB CONC 32.1 g/dl (32.0-36.5); MEAN CORPUSCULAR VOLUME 94.9 fl (80.0-96.0); MONO # 0.9 10^3/uL (0.0-0.8); NEUTROPHILS # 5.9 10^3/uL (1.5-8.5); NEUTROPHILS % 63.2 % (36.0-66.0); PLATELET COUNT, AUTOMATED 322 10^3/uL (150-450); WHITE BLOOD COUNT 9.3 10^3/uL (4.0-10.0)
[2019-01-11 16:40] LABS: ALBUMIN 3.2 GM/DL (3.2-5.2); ALT/SGPT 46 U/L (12-78); BILIRUBIN,TOTAL 0.5 MG/DL (0.2-1.0); BLOOD UREA NITROGEN 16 MG/DL (7-18); CALCIUM LEVEL 8.8 MG/DL (8.5-10.1); CARBON DIOXIDE LEVEL 31 MEQ/L (21-32); CHLORIDE LEVEL 100 MEQ/L (98-107); CHOLESTEROL LEVEL 229 MG/DL (<200); CHOLESTEROL RISK RATIO 5.585 (<5); CREATININE FOR GFR 1.01 MG/DL (0.70-1.30); FREE T4 1.08 NG/DL (0.76-1.46); GLOMERULAR FILTRATION RATE > 60.0 (>56); GLUCOSE, FASTING 100 MG/DL (70-100); HDL CHOLESTEROL 41 MG/DL (>40); LDL CHOLESTEROL 133 MG/DL (<100); NON-HDL-C 188 MG/DL; POTASSIUM SERUM 3.8 MEQ/L (3.5-5.1); SODIUM LEVEL 141 MEQ/L (136-145); TOTAL 25(OH) VITAMIN D 15.9 NG/ML (30.0-100.0); TOTAL PROTEIN 6.4 GM/DL (6.4-8.2); TRIGLYCERIDES LEVEL 275 MG/DL (<150)
== END ==
LOC: M SFHCSACK 09:16
PROVIDERS: ATTEND Physician Assistant
DX: I10 Essential (primary) hypertension (principal); E78.5 Hyperlipidemia, unspecified; Z13.220 Encounter for screening for lipoid disorders; Z13.29 Encounter for screening for other suspected endocrine disorder; Z12.5 Encounter for screening for malignant neoplasm of prostate; Z13.21 Encounter for screening for nutritional disorder
CPT/HCPCS: 36415; 80053; 80061; 82306; 84439; 84443; 85025; G0103

== ENCOUNTER → 2019-04-26 | Outpatient (REF) | payer MEDICARE ==
[2019-04-26 14:19] LABS: BASO # 0.1 10^3/uL (0.0-0.2); EOS # 0.2 10^3/uL (0.0-0.5); EOS % 1.8 % (0.0-3.0); HEMATOCRIT 45.2 % (42.0-52.0); HEMOGLOBIN 14.3 g/dl (13.5-17.5); LYMPH # 2.4 10^3/uL (1.5-5.0); LYMPH % 28.2 % (24.0-44.0); MEAN CORPUSCULAR HEMOGLOBIN 29.1 pg (27.0-33.0); MEAN CORPUSCULAR HGB CONC 31.6 g/dl (32.0-36.5); MEAN CORPUSCULAR VOLUME 92.1 fl (80.0-96.0); MONO # 0.9 10^3/uL (0.0-0.8); MONO % 10.1 % (0.0-5.0); NEUTROPHILS # 4.9 10^3/uL (1.5-8.5); NEUTROPHILS % 58.5 % (36.0-66.0); PLATELET COUNT, AUTOMATED 270 10^3/uL (150-450); RED BLOOD COUNT 4.91 10^6/uL (4.30-6.10); WHITE BLOOD COUNT 8.4 10^3/uL (4.0-10.0)
[2019-04-26 14:31] LABS: ALBUMIN 3.7 GM/DL (3.2-5.2); ALT/SGPT 34 U/L (12-78); BILIRUBIN,TOTAL 0.5 MG/DL (0.2-1.0); BLOOD UREA NITROGEN 13 MG/DL (7-18); CALCIUM LEVEL 8.9 MG/DL (8.8-10.2); CARBON DIOXIDE LEVEL 26 MEQ/L (21-32); CHLORIDE LEVEL 103 MEQ/L (98-107); CHOLESTEROL LEVEL 195 MG/DL (<200); CHOLESTEROL RISK RATIO 4.333 (<5); CREATININE FOR GFR 0.94 MG/DL (0.70-1.30); GLOMERULAR FILTRATION RATE > 60.0 (>49); GLUCOSE, FASTING 86 MG/DL (70-100); HDL CHOLESTEROL 45 MG/DL (>40); LDL CHOLESTEROL 88 MG/DL (<100); NON-HDL-C 150 MG/DL; SODIUM LEVEL 138 MEQ/L (136-145); TRIGLYCERIDES LEVEL 309 MG/DL (<150)
[2019-04-26 14:33] LABS: TOTAL 25(OH) VITAMIN D 48.2 NG/ML (30.0-100.0)
== END ==
LOC: M SFHCSACK 08:28
PROVIDERS: ATTEND Physician Assistant
DX: I10 Essential (primary) hypertension (principal); E78.2 Mixed hyperlipidemia; E55.9 Vitamin D deficiency, unspecified

== ENCOUNTER 2019-11-19 07:50 | Day surgery (SDC) | payer MEDICARE, MEDICAID ==
[~2019-11-19 07:50] MED LIST changes: -AMIO200T PO; +AMIO200T3 PO; +AMLO1TAB24 PO; -AMLO5TAB6 PO; +CYCL-707 PO; -CYCL10TA PO; +PANT40TA29 PO; -PANT40TA3 PO; +fentaNYL 100 MCG/2 ML INJECTION (J3010) ONE; +propofoL 200 MG/20 ML VIAL ONE
--- NOTE | 2019-12-15 11:34 | ROOR ---
Patient Name: Edi Berg Procedure Date: 11/19/2019 7:49 AM Date of : 1960 Age: 59 Room: [facility] Gender: Male Note Status: Rn Post Partum Override Procedure: Colonoscopy Indications: High risk colon cancer surveillance: Personal history of colonic polyps Providers: Nathanael TROY MD Referring MD: 1. No Referring Physician 1. No Referring Physician, Admin. Requesting Provider: Medicines: Monitored Anesthesia Care Complications: No immediate complications. Procedure: Pre-Anesthesia Assessment: - The heart rate, respiratory rate, oxygen saturations, blood pressure, adequacy of pulmonary ventilation, and response to care were monitored throughout the procedure. The Colonoscope was introduced through the anus and advanced to the terminal ileum, with identification of the appendiceal orifice and IC valve. The colonoscopy was performed without difficulty. The patient tolerated the procedure well. The quality of the bowel preparation was good. Findings: The perianal and digital rectal examinations were normal. Two sessile polyps were found in the splenic flexure. The polyps were diminutive in size. These polyps were removed with a cold snare. Resection and retrieval were complete. Internal hemorrhoids were found during retroflexion. The hemorrhoids were medium-sized. Impression: - Two diminutive polyps at the splenic flexure, removed with a cold snare. Resected and retrieved. - Internal hemorrhoids. - No additional abnormalities were found on retroflexion. Recommendation: - Repeat colonoscopy in 5 years for surveillance. - Resume Xarelto (rivaroxaban) at prior dose tomorrow. Nathanael Troy MD Nathanael TROY MD 11/19/2019 8:24:08 AM Number of Addenda: 0 Note Initiated On: 11/19/2019 7:49 AM Estimated Blood Loss: Estimated blood loss: none.
== END 2019-11-19 08:45 | disposition home or self-care (01) ==
LOC: M OPP 07:50
PROVIDERS: ATTEND Internal Medicine Gastroenterology
DX: Z12.11 Encounter for screening for malignant neoplasm of colon (principal); Z86.010 Personal history of colon polyps; D12.3 Benign neoplasm of transverse colon; K64.8 Other hemorrhoids; I48.91 Unspecified atrial fibrillation; Z79.899 Other long term (current) drug therapy; Z88.8 Allergy status to other drugs, medicaments and biological substances; Z86.69 Personal history of other diseases of the nervous system and sense organs
CPT/HCPCS: 45385; 88305; J3010

== ENCOUNTER → 2020-09-11 | Outpatient (CLI) | payer MEDICARE ==
[~2020-09-11] MED LIST changes: +BACTDSTA PO; +GABA-283 PO; -GABA-845 PO; -SULF1TAB93 PO; -fentaNYL 100 MCG/2 ML INJECTION (J3010) ONE; -propofoL 200 MG/20 ML VIAL ONE
--- NOTE | 2020-09-11 10:28 | REP ---
INDICATION: NICTOINE DEPENDANCE COMPARISON: Chest CT dated 07/29/2013 TECHNIQUE: Axial noncontrast images from the thoracic inlet to the upper abdomen using low-dose lung screening technique (LDCT). FINDINGS: Mild emphysematous changes are suspected. There is a stable 3 mm noncalcified perifissural nodule in the periphery of the right midlung zone (series 201; image 58) and stable subpleural 3 mm density (series 201; image 74). No further suspicious consolidation, nodule or mass lesion appreciated. No effusion. No pneumothorax. Tracheobronchial tree is patent. IMPRESSION: Lung-RADS category 2. Management recommendations include annual low-dose CT surveillance. <Electronically signed by Lui Mcgregor > 09/11/20 1024
== END ==
LOC: M RAD 09:46
PROVIDERS: ATTEND Nurse Practitioner Adult Health
DX: F17.218 Nicotine dependence, cigarettes, with other nicotine-induced disorders (principal)

== ENCOUNTER → 2020-09-14 | Outpatient (CLI) | payer MEDICAID, MEDICARE ==
--- NOTE | 2020-09-15 13:48 | SLEEPCENT ---
DATE: 09/14/2020 ORDERED BY: Alissa Humphries Nocturnal polysomnography was performed for evaluation of sleep physiology in this patient with a history of snoring, irregular breathing in sleep, atrial fibrillation, and cardiomyopathy. There was 8 hours and 33 minutes of data reviewed. There was 397.5 minutes of sleep identified. Sleep latency was mildly prolonged at 20 minutes. REM latency was prolonged at 145 minutes. Sleep architecture showed some fragmentation. There were three REM cycles noted. Overall sleep efficiency 78.8%. The electrocardiogram showed what appeared to be sinus rhythm with an average heart rate of 76 beats per minute. Rate ranged 60-90. EEG showed normal waveforms for wake and sleep stages. No focal events were identified. There were 358 respiratory events identified of 10 seconds in duration or greater for an apnea-hypopnea index of 54. The events were primarily obstructive, not exclusive to sleep stage, more frequent but not exclusive to the supine posture. Arousals from respiratory events occurred 11.8 times per hour, and oxygen desaturations were seen into the low 80s. There was some minor activity in the limb leads. Limb movement arousal index was only 1.5. IMPRESSION: Severe obstructive sleep apnea syndrome (G47.33). Apnea-hypopnea index 54. RECOMMENDATION: The patient should be encouraged to return to the sleep disorder center for pressure therapy. In the interim, alcohol and sedative avoidance should be practiced and caution exercised during the operation of motor vehicles.
== END ==
LOC: M SLEEP 20:00
PROVIDERS: ATTEND Nurse Practitioner Adult Health
DX: G47.33 Obstructive sleep apnea (adult) (pediatric) (principal)

== ENCOUNTER 2023-10-02 11:42 | Emergency (ER) | payer MEDICAID, MEDICARE ==
[~2023-10-02] VITALS: Ht 172.7 cm; Wt 88.6 kg
[~2023-10-02 11:42] MED LIST changes: -ACET1TAB16 PO; +ACET300T48 PO; -AMIO200T3 PO; +AMIO200T49 PO; -COZA50TA PO; -GABA-283 PO; +GABA-284 PO; +HYDR-161 PO; -HYDR10TAB PO; +LOSA-528 PO; +LOSA25TA13 PO; -LOSA25TA14 PO; +LOSA50TA28 PO; -LOSA50TA88 PO; +OMEP40CA4 PO; -OMEP40CA97 PO
[2023-10-02 12:22] LABS: BASO # 0.1 10^3/uL (0.0-0.2); BASO % 0.5 % (0.0-1.0); EOS # 0.1 10^3/uL (0.0-0.5); EOS % 0.8 % (0.0-3.0); HEMATOCRIT 50.9 % (42.0-52.0); HEMOGLOBIN 17.4 g/dl (13.5-17.5); LYMPH # 3.1 10^3/uL (1.5-5.0); MEAN CORPUSCULAR HEMOGLOBIN 31.9 pg (27.0-33.0); MEAN CORPUSCULAR HGB CONC 34.2 g/dl (32.0-36.5); MEAN CORPUSCULAR VOLUME 93.2 fl (80.0-96.0); MONO # 1.2 10^3/uL (0.0-0.8); MONO % 9.2 % (2.0-8.0); NEUTROPHILS # 8.8 10^3/uL (1.5-8.5); NEUTROPHILS % 65.8 % (36.0-66.0); PLATELET COUNT, AUTOMATED 309 10^3/uL (150-450); RED BLOOD COUNT 5.46 10^6/uL (4.30-6.10); WHITE BLOOD COUNT 13.3 10^3/uL (4.0-10.0)
[2023-10-02] MEDS ORDERED: ATOR40TA75 PO ×2 (12:23)
[2023-10-02] MEDS ORDERED: HYDR-3490 PO (12:23)
[2023-10-02] MEDS ORDERED: LEVE250T5 PO (12:23)
[2023-10-02] MEDS ORDERED: ROPI1TAB73 PO (12:23)
[2023-10-02] MEDS ORDERED: DULO1CAP6 PO (12:23)
[2023-10-02] MEDS: NS 500 ML IV ONE (12:37)
[2023-10-02] MEDS: methylPREDNISolone 125MG 2ML VIAL IV ONE (12:37)
[2023-10-02] MEDS: IPRATROPIUM 0.02% SOLN 0.5MG 2.5ML NEB NEB ONE (12:40)
[2023-10-02] MEDS: LEVALBUTEROL 1.25MG 0.5ML CONCENTRATE NEB NEB PRN (12:40)
[2023-10-02 12:56] LABS: BLOOD UREA NITROGEN 17 MG/DL (9-23); CARBON DIOXIDE LEVEL 27 MMOL/L (20-31); CHLORIDE LEVEL 100 MMOL/L (98-107); CK-MB VALUE MASS 2.9 NG/ML (<3.6); CREATININE FOR GFR 0.97 MG/DL (0.70-1.30); GLOMERULAR FILTRATION RATE > 60.0 (>49); GLUCOSE, FASTING 138 MG/DL (74-106); MAGNESIUM LEVEL 1.6 MG/DL (1.8-2.4); SODIUM LEVEL 138 MMOL/L (136-145)
[2023-10-02 13:00] LABS: THYROXINE (T4) 6.3 UG/DL (4.5-10.9)
[2023-10-02 13:01] LABS: THYROID STIMULATING HORMONE 1.239 uIU/ML (0.55-4.78)
[2023-10-02 13:03] LABS: CPK CREATINE PHOSPHOKINASE 74 U/L (46-171); MB/CK RELATIVE INDEX 3.91 (< OR =4)
[2023-10-02] MEDS ORDERED: ISOVUE-370 76% 100ML VIAL As Ordered ONE (13:17)
[2023-10-02 14:03] LABS: CK-MB VALUE MASS 2.5 NG/ML (<3.6)
[2023-10-02 14:16] LABS: MB/CK RELATIVE INDEX 4.03 (< OR =4)
[2023-10-02] MEDS ORDERED: PANT-23 PO (14:36)
[2023-10-02] MEDS ORDERED: LYRI200C PO ×2 (14:36)
[2023-10-02] MEDS ORDERED: PRED25TA PO (14:36)
[2023-10-02] MEDS ORDERED: [UNRECOGNIZED DRUG - CODE] PO (14:36)
[2023-10-02] MEDS ORDERED: FOLI1TAB11 PO (14:36)
[2023-10-02] MEDS ORDERED: METH2.5T48 PO (14:36)
[2023-10-02] MEDS ORDERED: HOME MED LIST COMPLETE! XX SCH (14:40)
[2023-10-02] MEDS: POTASSIUM CHLORIDE 10MEQ SR TABLET PO ONE (15:20)
[2023-10-02] MEDS: MAGNESIUM OXIDE 400MG TAB (MAG-OX) PO ONE (15:20)
[2023-10-02] MEDS: KCL 10MEQ/100ML SWI (KRUN) 10 MEQ in IV 1 EA IV ONE (15:58)
[2023-10-02] MEDS: METOPROLOL TART 25 MG TABLET PO ONE ×2 (15:59→17:46)
[2023-10-02 17:46] VITALS: BP 144/93
[2023-10-02 18:30] VITALS: BP 127/83; TEMP 98.8; O2SAT 93
[2023-10-02] MEDS ORDERED: METO25TA4 PO (18:37)
[2023-10-02] MEDS ORDERED: PRED10TA2 PO (18:37)
[2023-10-02] MEDS ORDERED: LEVAINH INH (18:39)
== END 2023-10-02 18:49 | disposition home or self-care (01) ==
LOC: M ED 11:42
DX: J44.1 Chronic obstructive pulmonary disease with (acute) exacerbation (principal); I11.0 Hypertensive heart disease with heart failure; I50.22 Chronic systolic (congestive) heart failure; I48.91 Unspecified atrial fibrillation; K21.9 Gastro-esophageal reflux disease without esophagitis; I45.10 Unspecified right bundle-branch block; I45.81 Long QT syndrome; R00.0 Tachycardia, unspecified; F17.210 Nicotine dependence, cigarettes, uncomplicated; F12.10 Cannabis abuse, uncomplicated; F10.10 Alcohol abuse, uncomplicated; Z88.8 Allergy status to other drugs, medicaments and biological substances
CPT/HCPCS: 71045; 71275; 80048; 82550; 82553; 83605; 83735; 83880; 84436; 84443; 84484; 85025; 87040; 87486; 87581; 87633; 87798; 93005; 93041; 94640; 94760; 96361; 96365; 96366; 96374; 99285; J2919; Q9967